=== PATIENT | female | born 1955 | race Caucasian/White ===

== ENCOUNTER → 2018-04-18 09:35 | Outpatient (CLI) | payer OTHER, SELFPAY ==
[2018-04-18 11:06] LABS: Absolute Lymphocyte Count 1.38 X10^3/ul (0.83-4.51); Absolute Neutrophil Count 2.1 X10^3/uL (2.0-7.7); Basophil# 0.02 X10^3/uL; Basophil% 0.5 % (0-1); Eosinophil# 0.07 X10^3/uL; Eosinophils% 1.8 % (0-5); Hematocrit 41.3 % (37-47); Hemoglobin 13.3 g/dl (12.0-15.0); Lymphocyte # 1.38 X10^3/ul (4.0); Lymphocyte % 35.1 % (19-41); Mean Corp Hgb Conc 32.2 g/gl (32-36); Mean Corpuscular Hgb 30.2 pg (27.0-32.0); Mean Corpuscular Volume 93.7 fL (81-99); Mean Platelet Vol. 11.8 fl (6.2-12.0); Monocyte# 0.35 X10^3/uL; Monocyte% 8.9 % (0-10); Neutrophil # 2.11 X10^3/uL (2.7-7.7); Neutrophil % 53.7 % (47-70); Platelet Count 211 K/mm3 (150-450); RBC Distribution Width CV 12.8 % (11.6-14.6); RBC Distribution Width SD 42.7 fl (35.1-43.9); Red Blood Count 4.41 M/mm3 (4.2-5.4); White Blood Count 3.9 K/mm3 (4.4-11.0)
[2018-04-18 11:10] LABS: POSITIVE COUNT NO; POSITIVE DIFFERENTIAL NO; POSITIVE MORPHOLOGY NO
[2018-04-18 11:33] LABS: Vitamin D,25 Hydroxy 28.9 ng/mL (29.95-100.01)
[2018-04-18 11:36] LABS: ALB/GLOB Ratio 0.9 RATIO (0.9-2.4); AST(SGOT) 17 U/L (15-37); Alanine Aminotransfer ALT/SGPT 21 U/L (13-56); Albumin, Serum 3.6 g/dL (3.2-5.0); Alkaline Phosphatase 87 U/L (45-117); Anion Gap 9 (5-15); BUN 22 mg/dL (7-18); Chloride 106 mmol/L (98-107); Cholesterol 245 mg/dL (200); Creatinine, Serum 0.84 mg/dL (0.55-1.02); EST Glomerular Filtration Rate 72 mL/min (>60); Est Glom Filt Rate - Afr Amer 88 mL/min (>60); Globulin 3.8 g/dL (2.2-4.2); Glucose 75 mg/dL (74-106); High Density Lipoprotein 68 mg/dL; Potassium 4.1 mmol/L (3.5-5.1); Protein, Total 7.4 g/dL (6.4-8.2); Sodium Level 138 mmol/L (136-145); Thyroid Stim Hormone (TSH) 3.33 uIU/mL (0.358-3.74); Triglycerides 72 mg/dL; Very Low Density Lipoprotein 14 mg/dL (5-40)
== END ==
DX: Z00.00 Encounter for general adult medical examination without abnormal findings (principal); E78.5 Hyperlipidemia, unspecified; E55.9 Vitamin D deficiency, unspecified; Z85.3 Personal history of malignant neoplasm of breast
CPT/HCPCS: 36415; 80053; 80061; 82306; 84443; 85025

== ENCOUNTER → 2019-04-21 | Outpatient (CLI) | payer OTHER, SELFPAY ==
[2019-04-21 09:51] LABS: Absolute Neutrophil Count 2.1 X10^3/uL (2.0-7.7); Basophil# 0.02 X10^3/uL; Basophil% 0.5 % (0-1); Eosinophil# 0.09 X10^3/uL; Eosinophils% 2.3 % (0-5); Hematocrit 43.4 % (37-47); Hemoglobin 13.6 g/dL (12.0-15.0); Lymphocyte % 35.3 % (19-41); Mean Corp Hgb Conc 31.3 g/dL (32-36); Mean Corpuscular Hgb 29.9 pg (27.0-32.0); Mean Corpuscular Volume 95.4 fL (81-99); Mean Platelet Vol. 11.3 fl (6.2-12.0); Monocyte# 0.33 X10^3/uL; Monocyte% 8.3 % (0-10); NRBC Flagged by Analyzer 0 % (0-5); Neutrophil # 2.12 X10^3/uL (2.7-7.7); Neutrophil % 53.3 % (47-70); Platelet Count 219 K/mm3 (150-450); RBC Distribution Width CV 12.4 % (11.6-14.6); RBC Distribution Width SD 43.7 fl (35.1-43.9); Red Blood Count 4.55 M/mm3 (4.2-5.4)
[2019-04-21 10:27] LABS: ALB/GLOB Ratio 0.9 RATIO (0.9-2.4); AST(SGOT) 17 U/L (15-37); Alanine Aminotransfer ALT/SGPT 21 U/L (13-56); Albumin, Serum 3.5 g/dL (3.2-5.0); Alkaline Phosphatase 86 U/L (45-117); Anion Gap 7 (5-15); BUN 11 mg/dL (7-18); BUN/Creat Ratio 15.3 RATIO (10-20); Chloride 108 mmol/L (98-107); Cholesterol 211 mg/dL (200); Creatinine, Serum 0.72 mg/dL (0.55-1.02); EST Glomerular Filtration Rate 87 mL/min (>60); Est Glom Filt Rate - Afr Amer 105 mL/min (>60); Globulin 3.7 g/dL (2.2-4.2); Glucose 88 mg/dL (74-106); High Density Lipoprotein 73 mg/dL; Potassium 4.5 mmol/L (3.5-5.1); Protein, Total 7.2 g/dL (6.4-8.2); Sodium Level 140 mmol/L (136-145); Thyroid Stim Hormone (TSH) 2.41 uIU/mL (0.358-3.74); Triglycerides 64 mg/dL; Very Low Density Lipoprotein 13 mg/dL (5-40)
== END | disposition home or self-care (01) ==
LOC: LAB 08:35
DX: E55.9 Vitamin D deficiency, unspecified (principal); E78.5 Hyperlipidemia, unspecified
CPT/HCPCS: 36415; 80053; 80061; 82306; 84443; 85025

== ENCOUNTER → 2020-12-17 06:39 | Outpatient (CLI) | payer MEDICARE, OTHER, SELFPAY ==
--- NOTE | 2020-12-17 06:41 | CT_ITS ---
STUDY: CT RIGHT LOWER EXTREMITY WITHOUT CONTRAST REASON FOR EXAM: Right hip osteoarthritis, surgical planning. TECHNIQUE: Transaxial CT imaging of the lower extremity was performed. Sagittal and coronal images were reconstructed. Individualized dose optimization techniques were used for this CT. COMPARISON: Radiographs 11/15/2020. FINDINGS: Hip: There are marginal osteophytes of the femoral head, subchondral cystic change of the femoral head and acetabulum, and severe joint space narrowing (coronal reconstructions 49-58). There is mild vascular calcification. Knee: The joint spaces of the medial and lateral femorotibial compartments and patellofemoral compartments are preserved. There is joint space narrowing and subchondral cystic change of the proximal tibiofibular articulation (sagittal reconstructions 21, 22). CT/Extremity Lower without Contra IMPRESSION: Right hip osteoarthritis. Electronically Signed: Justus Madden MD at 7:47 EDT Tel , Service support ,
[2020-12-17 08:00] LABS: Absolute Lymphocyte Count 1.51 X10^3/uL (0.83-4.51); Basophil# 0.03 X10^3/uL; Basophil% 0.8 % (0-1); Eosinophil# 0.06 X10^3/uL; Eosinophils% 1.5 % (0-5); Hematocrit 42.7 % (37-47); Hemoglobin 13.5 g/dL (12.0-15.0); Lymphocyte # 1.51 X10^3/ul (0.83-4.51); Lymphocyte % 38.3 % (19-41); Mean Corp Hgb Conc 31.6 g/dL (32-36); Mean Corpuscular Hgb 29.9 pg (27.0-32.0); Mean Corpuscular Volume 94.5 fL (81-99); Mean Platelet Vol. 11.4 fl (6.2-12.0); Monocyte# 0.35 X10^3/uL; Monocyte% 8.9 % (0-10); NRBC Flagged by Analyzer 0 % (0-5); Neutrophil # 1.98 X10^3/uL (2.7-7.7); Neutrophil % 50.2 % (47-70); Platelet Count 276 K/mm3 (150-450); RBC Distribution Width CV 13.1 % (11.6-14.6); Red Blood Count 4.52 M/mm3 (4.2-5.4); White Blood Count 3.9 K/mm3 (4.4-11.0)
[2020-12-17 09:01] LABS: ALB/GLOB Ratio 0.8 RATIO (0.9-2.4); AST(SGOT) 13 U/L (15-37); Alanine Aminotransfer ALT/SGPT 20 U/L (13-56); Albumin, Serum 3.4 g/dL (3.2-5.0); Alkaline Phosphatase 86 U/L (45-117); Anion Gap 4 (5-15); BUN 14 mg/dL (7-18); BUN/Creat Ratio 16.1 RATIO (10-20); Calcium,Total 9.1 mg/dL (8.5-10.1); Chloride 105 mmol/L (98-107); Cholesterol 270 mg/dL (200); Creatinine, Serum 0.87 mg/dL (0.55-1.02); EST Glomerular Filtration Rate 70 mL/min (>60); Est Glom Filt Rate - Afr Amer 84 mL/min (>60); Glucose 87 mg/dL (74-106); High Density Lipoprotein 80 mg/dL; Potassium 4.1 mmol/L (3.5-5.1); Protein, Total 7.4 g/dL (6.4-8.2); Sodium Level 138 mmol/L (136-145); Thyroid Stim Hormone (TSH) 3.61 uIU/mL (0.358-3.74); Triglycerides 65 mg/dL; Very Low Density Lipoprotein 13 mg/dL (5-40)
[2020-12-23 12:27] LABS: Vitamin D,25 Hydroxy 28.6 ng/mL
== END ==
PROVIDERS: Referring Provider Orthopaedic Surgery; Visit Provider Orthopaedic Surgery
DX: Z00.00 Encounter for general adult medical examination without abnormal findings (principal); M16.11 Unilateral primary osteoarthritis, right hip; R53.83 Other fatigue; E55.9 Vitamin D deficiency, unspecified; E78.5 Hyperlipidemia, unspecified
CPT/HCPCS: 36415; 73700; 80053; 80061; 82306; 84443; 85025

== ENCOUNTER 2020-12-30 15:00 | Outpatient (RCR) | payer MEDICARE, OTHER, SELFPAY ==
--- NOTE | 2020-11-22 13:24 | HP.PTEVAL_ITS ---
Patient's Visit Information SUDHEER ANTOINE is a 65 year old F referred to Physical Therapy by Dr. Sukumar Green DO with a diagnosis of R hip OA, R greater trochanteric bursistis, lumbago. Date of Evaluation: 11/18/20 Physical Therapist: Jeffrey Mckeon DPT - Visit Plan Frequency: 2x /Week Duration: 4 Weeks Plan: Start with ROM, BLE strengthening, HS stretching and IT band strethching in aquatic setting. Pt. is very painful with movements of R hip, progress ROM as tolerated. Add in core stability as well. - Subjective Pt. is here today for her initial evaluatuion with diagnosis of R hip OA, R greater trochanteric bursistis, lumbago. Pt. reports having pain for 2 years after falling on her side and hitting her lateral R hip. Pt. reports very limited ROM of her R hip and having difficulty doing her typical recreational activities which included walking, biking, and lifting. She has pain lying in any position as well. She did have an injection which did not change any of her symptoms. Pt. is hopeful to reduce her pain allowing her to get back to all of her previous activities without limitations. - Pain R posterior glute range Pain Intensity (Out of 10): 6 Pain Intensity Range: 3, 10 R greater trochanter Pain Intensity (Out of 10): 0 Pain Intensity Range: 0, 3 R groin Pain Intensity (Out of 10): 0 Pain Intensity Range: 0, 1 - Objective POSTURE: Pt. has slight flexed posture with increased lateral wt. shift to L side. Equal iliac crest heights. PALPATION: Pt. has very mild tenderness at R greater trochanter, increased pain at posterior hip. Pt. has mild pain at SI joint and increased pain near piriformis muscle belly. NEURO: normal sensation throughout BLEs. Normal DTR of achilles and patella. Pt. is able to rise on heels and toes without issues. ROM: R hip: flexion 110deg increase NW, IR 15deg increase NW, ER 30deg increase NW, ext 15deg increase NW. lumbar spine: flexion nil loss NE, exte min loss increase NW at anterior hip, SB min loss NE bilat, rotation nil loss NE. HS 65deg in 90/90, IT band tight with Obers, no increas in symptoms. Painful with any testing for piriformis due to lack of motion. MMT: LLE 5/5 throughout. RLE- ankle 5/5 throughout; knee 5/5 throughout; hip- flexion 4+/5, abd 4/5, ext 4/5.. Core strength- poor. GAIT: Pt. ambulates with dropping down on R side. Decreased L step lenght and decrased stance time on RLE. Pt. has marked increased hip lateral translation during R stance phase. STAIRS: Pt. completes with step to pattern. Pt. is very painful if attempting to laod RLE during stair negotiation - Special Tests R Hip Scour: Positive R Hip Andres - IT Band: Negative Comment: Obers negative for pain, but tight - Goals Goal 1:: LTG: Pt. to be I with HEP Goal Time Frame: 4-6 Weeks Goal 2:: STG: pt. to walk household distances with 0-2/10 pain in R posterior hip Goal Time Frame: 2 Weeks Goal 3:: LTG: Pt. to ambulate unlimited distance with 0-2/10 pain in R hip. Goal Time Frame: 4-6 Weeks Goal 4:: LTG: Pt. to have increased RLE strength by 1 grade throughotu effected musculature. Goal Time Frame: 4-6 Weeks Goal 5:: LTG: pt. to resume all recreational activities without increase in symptoms. Goal Time Frame: 4-6 Weeks Goal 6:: LTG: Pt. to have increased R hip ROM icnreased to full without increase in symptoms. Goal Time Frame: 4-6 Weeks - Rehabilitation Potential Physical Therapy Diagnosis: Pt. has signs and symptoms consistentw tih R hip OA, R greater trochanteric bursistis, lumbago. Pt. has marked loss of ROM of R hip and her symptoms are irritable. She was not overally painful at greater trochant er, but more along piriformis and posterior/lateral hip. She did have increased symptoms at posterior hip with hip ROM testing. I would like to work on her ROM and stability exercises allowing fro increased tolerance with walking and recreational activities. Rehabilitation Potential: Good - Anticipated Interventions Patient/Client Instruction: Educate patient on: Condition, Plan of Care, Risk Factors, Benefits of Fitness Program For the Purpose of:: To facilitate caregiver knowledge, To improve self manag ement, To prevent re-injury, To improve ability to perform tasks related to life management, To improve tolerance to ADL's Therapeutic Exercise to Include: Strength training, Power training, Body mechanics, Postural training, In an aquatic setting, via [employer] Balance Mas, Active ROM, Dynamic Lumbar Stabilization For the Purpose of:: To decrease pain, To decrease swelling/inflammation, To increase ROM, To improve nutrient delivery to tissue, To increase oxygenation perfusion, To improve muscle performance and motor function, To improve ability to perform ADL's, To improve health of tissue, To decrease soft tissue restriction, To increase flexibility/ROM Thank you for the opportunity to evaluate your patient. For Medicare and Medicare HMO plans, please review the plan of care and approve it. It will need to be FAXED BACK to us at [phone] for Medicare purposes. For Medicare only, by signing this I certify the plan of care. Please let me know if there are questions or concerns regarding this plan of care. Physician Signature: Date:
--- NOTE | 2020-12-31 10:00 | HP.PTDCSUM ---
It has been my pleasure to treat SUDHEER ANTOINE referred by Dr. Sukumar Green DO, with the diagnosis of R hip OA, R greater trochanteric bursistis, lumbago for a total of 10 visit(s). Discharge Date: 12/30/20 Please see the following information for a summary of their discharge status. Subjective: The pt. states that she did feel more sore after last PT session and felt it was from overdoing the Nustep and the exercises here. She states that she feels pretty good today and has little pain in the hip. R posterior glute range Pain Intensity (Out of 10): Unrated R greater trochanter Pain Intensity (Out of 10): Unrated R groin Pain Intensity (Out of 10): Unrated % Improvement: 10 Objective/Function: Pt. tolerated exercises today, but was in more pain than she previously was this week. She feels good while on the Nustep and this does exacerbate her pain. She is willing to perform all exercises here in PT and at home, but experiences lateral hip pain while doing them. Pt. will schedule PT for only once a week starting next week. Goal 1:: LTG: Pt. to be I with HEP Goal Progress: Not Progressing Goal 2:: STG: pt. to walk household distances with 0-2/10 pain in R posterior hip Goal Progress: Not Progressing Goal 3:: LTG: Pt. to ambulate unlimited distance with 0-2/10 pain in R hip. Goal Progress: Not Progressing Goal 4:: LTG: Pt. to have increased RLE strength by 1 grade throughotu effected musculature. Goal Progress: Not Progressing Goal 5:: LTG: pt. to resume all recreational activities without increase in symptoms. Goal Progress: Not Progressing Goal 6:: LTG: Pt. to have increased R hip ROM icnreased to full without increase in symptoms. Goal Progress: Not Progressing Plan: The pt. plans on being independent with her HEP until she gets her R hip replaced on January 18. The pt. feels that she can do all exercises at home without aggravating her hip and was educated on how to use a walker after her surgery and how to ascend/descend a flight of stairs with/without a walker. She has been having increased pain with exercises. At this point in time, I would suggest that she work on light exercises at home, including her elliptical which is not painful leading up her to surgery. She was educated in proper use of AD and stair negotiation for post surgical and educated on what to expect afterwards. Pt. will be DC from PT this date. Discharge Comments: At this point in time, I would suggest that she work on light exercises at home, including her elliptical which is not painful leading up her to surgery. She was educated in proper use of AD and stair negotiation for post surgical and educated on what to expect afterwards. Pt. will be DC from PT this date. If there are questions or concerns regarding this patient's physical therapy, please feel free to call me at [phone]. Thank you for the referral of this patient. Sincerely, Jeffrey Mckeon, INDERT
== END 2020-12-30 19:00 | disposition home or self-care (01) ==
LOC: PT 15:00
PROVIDERS: Referring Provider Orthopaedic Surgery; Visit Provider Orthopaedic Surgery
DX: M70.61 Trochanteric bursitis, right hip (principal); M16.11 Unilateral primary osteoarthritis, right hip; M54.5 Low back pain
CPT/HCPCS: 97110; 97113; 97161; 97530

== ENCOUNTER 2021-01-18 17:13 | Observation (INO) | payer MEDICARE, OTHER, SELFPAY ==
[2020-12-23 08:04] VITALS: BMI 29.5
--- NOTE | 2021-01-07 08:41 | EKG12_ITS ---
Test Reason : PREOP Blood Pressure : / mmHG Vent. Rate : 061 BPM Atrial Rate : 061 BPM P-R Int : 180 ms QRS Dur : 078 ms QT Int : 386 ms P-R-T Axes : 068 -06 038 degrees QTc Int : 388 ms Normal sinus rhythm Normal ECG Confirmed by FAB BALLESTEROS, FREDRICK ([id number]), website/blog editor REJI CHAVARRIA ([id number]) on 01/10/2021 1:45:11 PM Referred By: SUSY Confirmed By:FREDRICK SANON MD
[2021-01-07 09:49] LABS: International Normalized Ratio 0.9; Prothrombin Time (Protime)PT. 11.8 SECONDS (11.7-14.9)
[2021-01-07 09:50] LABS: Partial Thromboplast Time 25.8 Seconds (24.1-36.2)
[2021-01-08 10:05] LABS: Fructosamine 217 umol/L (0-285)
[2021-01-18] VITALS (20 sets, daily range): BP systolic 91–148; BP diastolic 43–82; PULSE 52–92; RESP 16–20; TEMP 35.7–37.3; O2SAT 93–100; BMI 30.2; BMI 30.1
--- NOTE | 2021-01-18 07:39 | HP.PCM_ITS ---
History and Physical Date of Admission: 01/18/21 Date of Service: 12/23/20 MR#:[id number]:[id number]: SUDHEER ANTOINE [facility] #:[id number]:[id number] Provider: LIT Santillan/Sex: 65/F Location:[facility]:Signed Intake Vital Signs 12/23/20 08:04 Height 5 ft 4.57 in Weight: 175 lb 2 oz BMI 29.5 Intake Visit Reasons: right hip Accompanied by: Self Allergies niacin Allergy (Verified 12/10/20 08:34) Hives prochlorperazine [From Compazine] Allergy (Verified 12/10/20 08:34) Unknown prochlorperazine edisylate [From Compazine] Allergy (Verified 12/10/20 08:34) Unknown prochlorperazine maleate [From Compazine] Allergy (Verified 12/10/20 08:34) Unknown promethazine HCl [From Phenergan] Allergy (Verified 12/10/20 08:34) Unknown trimethobenzamide HCl [From Tigan] Allergy (Verified 12/10/20 08:34) Unknown codeine Adverse Reaction (Verified 12/10/20 08:34) Other [facility] Social History (Updated 11/15/20 @ 12:[address] Sukumar Green DO) Smoking Status: Never smoker HPI right hip Details: Parts of this documentation were recorded by a scribe, this documentation accurately reflects the service provided and the decisions made by , LIT Polanco 12/23/20 0804. SUDHEER ANTOINE is a 65 year old F here today for her pre-op, right hip, needs to re- sign consent. Height and weight was updated today. Ortho Exam Right Hip Skin: No soft tissue swelling Special Tests: Yes pain with log roll, No TTP Greater Troch and Yes C sign Homans Sign: No HIP: Patient has decreased range of motion in both internal and external rotation. She does have pain/discomfort with this limited range of motion. Coding Level of Care Code Off vis,est,level 2 Diagnoses Osteoarthritis of right hip M16.11 Assessment and Plan Assessment and Plan (1) Osteoarthritis of right hip: Status: Acute Plan - LIT [place]addell: Patient presents the office today to be signed surgical consent for right hip total arthroplasty.. Patient has met with previously and has previously discussed the procedure in detail as well as risks, benefits, and possible complications. We did review these complication risks as well as possible benefits from this procedure. Patient had no further questions at this time. Surgical consent was signed in office today. We did briefly go over the procedure again today as well. Patient does have a history of some difficulties with nausea and vomiting postanesthesia. We discussed that this is definitely something that she wants to bring up with her anesthesiologist even at her presurgery registration/evaluation and then definitely the day of her surgery. Patient is staying overnight postoperatively due to her previous difficulties with anesthesia. Patient can notify our office in the meantime if she has any other questions or concerns and obviously if any change in her symptoms. This note was generated with [employer] dictation software. It may contain incorrect words, spelling, and punctuation that were not noted in checking the note before signing. 12/23/20 1144<Electronically signed by Addy MURRIETA>Date Addy MURRIETA Cosigner Signature:Date (if applicable) CC: ~I have re-examined the patient. There are no clinical changes since date of exam
[2021-01-18] MEDS: Acetaminophen 500 MG Tablet 1000 MG PO ×2 (07:56→17:15)
[2021-01-18] MEDS: Celecoxib 200 MG Capsule 400 MG PO (07:57)
[2021-01-18] MEDS: Gabapentin 600 MG Tablet PO (07:57)
[2021-01-18] MEDS: Scopolamine 1mg/72hr Patch 1 PATCH TD (07:58)
[2021-01-18] MEDS: Lactated Ringers 1,000 ML 999 ML IV (08:18)
[2021-01-18 08:39] LABS: Bedside Glucose 102 mg/dL (70-110)
--- NOTE | 2021-01-18 09:40 | PCM.OPRPT ---
Report of Operation Surgery/Procedure Performed:: Preoperative diagnosis: Right knee DJD Postoperative diagnosis: Same Procedure: Right total knee arthroplasty CT guided Robotic Assisted Implant: Kumar triathlon press fit femoral component size 3, press-fit tibial baseplate size 4, press fit asymmetric patella size 32, polyethylene X3 size 9 CS Anesthesia: Spinal with adductor canal block Tourniquet time: 35 minutes at 300 mmHg Customer Experience Strategist: Addy MURRIETA. Complications: None Condition: Stable to PACU Estimated blood loss: 150 cc Indication for procedure: This is a 65-year-old female with long standing degenerative joint disease of the knee who has failed conservative treatment and wished to proceed with elective total knee arthroplasty. Risk benefits and alternatives were reviewed including; risk of bleeding, infection, nerve artery and tissue damage, continued pain, postoperative stiffness, venous thromboembolism, need for postoperative rehabilitation, mechanical feel to the knee, and expected postoperative course. The operative CT and templating was performed with component sizing Procedure: The patient was met in the preoperative holding area. The operative extremity was identified by both patient and physician and was marked. Patient was met by anesthesia. An adductor canal block was placed by anesthesia postoperatively the patient was brought back to the operating room on a wheeled cart and transferred to the operating table in the supine position. Anesthesia was started. A well-padded tourniquet was placed on the operative extremity. The patient was prepped and draped in the usual sterile fashion. A timeout was called to ensure the proper patient procedure and extremity were being contemplated. An Esmarch was used to exsanguinate the extremity. The tourniquet was inflated. A 10 blade scalpel was used to make a midline incision down through the skin and subcutaneous tissue. Skin retractors placed. Bovie was used to perform meticulous hemostasis. full-thickness flaps were elevated medial and lateral along the joint capsule. A deep blade scalpel was used to perform a medial parapatellar arthrotomy. The knee was brought to full extension. A Bovie was used to release the soft tissues off the most proximal aspect of the medial tibial plateau, a three-quarter inch curved osteotome was also used for this process. The infrapatellar fat pad was excised. The superior fat pad was excised partially anteriorolateraly and portion the anterioromedial pad was elevated from the femur. At this point our intra-articular femoral array was placed of a 45 degree angle proximal and posterior to the medial epicondyle. Our tibial array was placed greater than 1 hands breath below the incision at a 20 degree angle stab incisions were used for this case were attached and checked with the robotic software. Tourniquet was let down. At this point registration lerner were taken throughout the knee as well as checkpoints placed in the femur and tibia once the knee was registered then tensioned the medial and lateral ligaments in extension and 90 degrees of flexion. We then used these numbers to adjust our components within parameters to balance the knee in both flexion and extension once this was done on our monitor we then proceeded with using the robotic arm to make our tibial plateau cut and anterior posterior and chamfer cuts and distal on the femur we then trialed and achieved the desired plan with a well-balanced knee. Lug holes were drilled in the femur the tibia preparation was completed with a fin punch and the patella was prepared by first using a caliper to ensure sufficient bone stock and a patellar reamer to remove the desired amount of bone locals were drilled for an asymmetric poly-. We then brought the knee through range of motion with excellent patellar tracking. We thoroughly irrigated the knee with a trial components were removed a posterior capsular injection with her standard cocktail was performed the aqua Mantis was also used to aid in hemostasis. Betadine rinse was allowed to sit and washed out components were press-fit into place. Aricept rinse was then used followed by several more rate liters of irrigation after it was allowed to sit. Joint capsule was closed with #1 Ethibond [id number] followed by Vicryl in the subcutaneous tissues staple in the skin arrays and checkpoints were removed prior to closure all counts were correct stab incisions were closed with a stable standard dressing in the form of Mepilex for the main incision Xeroform 4 x 4 and Tegaderm over pin site holes. Thigh-high MELODY hose applied over top of dressing. Patient tolerated the procedure well and was directed to PACU in stable condition no intraoperative complications
--- NOTE | 2021-01-18 10:00 | FEM_PTH ---
PATIENT: SUDHEER ANTOINE LOC: [facility] U#:[id number] AGE/SX: 65/F ROOM: [facility] [place] RE01/18/[address]: Dr. Sukumar Green DO : 1955 BED: 1 DIS: 01/19/2021 SPEC #: [id number] RECD: 01/18/21 14:37 STATUS: LIYA DOSHIAsif #: [id number] HENNA: 01/18/21 10:[address]: Sukumar Green DEPT: SURGICAL PATHOLOGY RECD BY: nYes Cardenas Tissues: Femoral region, NOS Procedures: Decalcification bone/plaque Surgery Specimen Level V HEADER OPERATION: ERAS, total hip replacement robotic arm assist PRE-OP DIAGNOSIS: Right hip DJD TISSUE SUBMITTED: Right hip bone MICROSCOPIC DIAGNOSIS Bone and tissue of right hip, total hip resection: Severe degenerative joint disease. AM:west 01/24/2021 MICROSCOPIC DESCRIPTION Slides are reviewed. GROSS DESCRIPTION Received is one container labeled with the patient's name and designated right hip bone. The specimen consists of a latham femoral head with portion of femoral neck. The femoral head measures 4 x 4.5 x 4 cm and the portion of femoral neck measures 1 cm in length. The articular surface displays prominent osteophyte formation, eburnation and bone erosion. Also present in the specimen container are multiple irregular fragments of bone reamings measuring in aggregate 7 x 7 x 1 cm. No soft tissue is identified. Ethanol Operator sections are submitted in two cassettes after decalcification as follows: 1 ? bone reaming, 2 ? femoral head. / SJ:west 01/19/21 TC:5 CPT: 55511, 68550
[2021-01-18] MEDS: Cefazolin 2 GM in 0.9% Normal Saline 100 ML IV (10:45)
[2021-01-18] MEDS: Lactated Ringers 1,000 ML 125 ML IV (12:01)
--- NOTE | 2021-01-18 12:47 | OP.PCM_ITS ---
Report of Operation Date of Procedure: 01/18/21 Description of Surgical Findings:: Preoperative diagnosis: Right hip DJD Postoperative diagnosis: Same Procedure: CT-guided Makoplasty assisted right total hip arthroplasty Implants: [place] Accolade II stem size 3, 127 degree neck angle -5 neck length 54 mm Trident II acetabular shell with 40 mm cancellous screw 36 mm ceramic head Anesthesia: Spinal EBL: 175 cc Complications: None Condition: Stable to PACU Indication for procedure: This is a 65-year-old female who has had long-standing arthrosis of the hip who has failed conservative treatment and wished to undergo total hip arthroplasty. We did discuss operative versus nonoperative intervention including risks of bleeding, infection , nerve artery tissue damage, need for further surgery, fracture, leg length discrepancy dislocation blood clot and need for postoperative physical therapy and postoperative expectations. An informed consent was signed. Procedure: Patient was met in the preoperative holding area once again the operative extremity was identified by both patient and physician and was marked. Patient was met by anesthesia . Anesthesia was started. patient was then positioned in the lateral decubitus position on a well-padded pegboard with an axillary roll. All bony prominences were checked and padded. The patient was prepped and draped in the usual sterile fashion. A timeout was called to ensure the proper patient procedure and extremity were being contemplated. Anatomic landmarks were palpated and marked for a standard posterior lateral approach. Prior to this the ASIS was palpated and 3 fingerbreadths proximal to this 3 pins were placed at a 45 degree angle into the iliac crest with good purchase, stab incisions were made with a 15 blade into the skin prior to placement. The Makoplasty array was then secured. A 10 blade scalpel was used to make a crab meat processor ior incision through the skin and subcutaneous tissue. retractors were used and electrocautery was used to maintain meticulous hemostasis and dissect full- thickness flaps until the gluteal fascia was reached. The gluteal fascia was incised in line with the gluteal fibers. The bursal tissue was then freed from the underside and a Charnley retractor was placed. The femoral trochanteric checkpoint was placed and leg length was assessed using the trochanteric checkpoint and an EKG lead that was placed on the knee prior to prepping the leg .the fat pad was then elevated off of the external rotators with electrocautery and the external rotators were dissected off of the greater trochanter including the piriformis and were tagged with #1 Ethibond for later repair. The joint capsule opened with posterior trapdoor technique. The hip was surgically dislocated. The measurement on the preoperative CT from the top of the lesser trochanter to the femoral neck cut was marked Hohmann was placed around the lesser trochanter. A neck cutting guide was used to edwin the neck with a Bovie and an oscillating saw was used complete the femoral neck cut. The femoral head was then removed and sized. We then turned our attention to the acetabulum. A Bovie was used to make a perforation in the anterior joint capsule and a Nix retractor was placed this was repeated in the 6 o'clock position and a wide gatito was placed there. With a long handled knife the labral and pulvinar tissue were removed. We then registered the acetabulum with the pointing array and confirmed our landmarks. Once the socket was thoroughly prepared and labral tissue and pulvinar was removed we single reamed with the robotic arm. We then used the robotic arm to position the acetabular implant and impacted it into place under robotic guidance. We then proceeded to place a posterior superior screw by drilling first measuring and inserting the screw. We then inserted a trial liner. And turned our attention back to the femur at this point a femoral elevator was used. As well as a pointed wide Hohmann around the lesser trochanter and a Hohmann to help retract the gluteus medius. A box chisel was used to remove excess lateral neck followed by a canal finder and a lateralizing reamer. This was followed by sequential broaches. Attention was made of the version within the canal based on preoperative templating. Once the final broach was seated we then trialed reduced the hip it was determined that a 127 degree neck angle with a -5 neck length was the appropriate size. We then checked stability with shuck testing as well as flexion and internal rotation. then proceeded with hip extension and checked leg lengths at the knees and heels as well as with the trochanteric checkpoint and knee EKG lead. At this point trials were removed. A liner was inserted to the cup. The femoral stem was inserted. We re-trialed and then proceeded to impact the femoral head onto the Roque taper. We then surgically reduce the hip check stability again and leg lengths and were satisfied. Betadine rinse was allowed to sit for 5 minutes while everyone changed their gloves. Thorough irrigation was performed. Followed by closure of the external rotators with #2 FiberWire followed by closure of gluteal fascia with #1 Ethibond. 0 Vicryl fat stitches and 2-0 Vicryl subcutaneous stitches and bernard in the skin. A pulls were placed in the pin sites over the iliac crest with Xeroform 4 x 4 and OpSite. dressing was applied to incisional area with Mepilex Ag and an abduction pillow was placed. Patient tolerated the procedure well there was no intraoperative complications all counts were correct and the patient was brought back to the PACU in stable condition Admit VTE Documentation VTE Mechan Device Prophylaxis: SCD's
--- NOTE | 2021-01-18 13:30 | RAD_ITS ---
HISTORY: Post Op -- AP both hips on single yancy/lateral of op hip PACU EXAMINATION/TECHNIQUE: XR Hip Unilateral with Pelvis when performed; 2-3 Views: AP view pelvis with lateral view right hip. COMPARISON: None FINDINGS: PELVIC BONES: No displaced fracture, destructive or sclerotic lesions. Note that overlapping bowel shadows may however obscure fine detail. Sacroiliac joints are unremarkable. No widening of the pubic symphisis. HIPS: Status post right hip total arthroplasty. Adequate alignment of hardware. Intact and adequately aligned left hip with preserved joint space. SOFT TISSUES: Postop right hip soft tissue swelling, gas and overlying skin bernard. Several calcified pelvic phleboliths noted. RAD/Hip Min 2 Views (Portable) IMPRESSION: Status post right hip arthroplasty. at 0012 Reported and signed by: Johnny Tierney MD Electronically Signed: Johnny Tierney MD at 0:11 EDT Tel , Service support ,
[2021-01-18] MEDS: Lactated Ringers 1,000 ML 100 ML IV (15:16)
--- NOTE | 2021-01-18 15:24 | SUR.PHASEI ---
AT 1345, PATIENT WAS TURNED SIDE TO SIDE TO PUT DEPENDS ON. BECAME VERY NAUSEATED AND VOMITED APPROXIMATELY 100 CC GREEN BILE LIQUID. ZOFRAN 4 MG IV GIVEN.
[2021-01-18] MEDS: Cefazolin 1 GM/50 ML BAG IV (17:15)
[2021-01-18] MEDS: Senna/Docusate Sodium 1 Tablet 2 TABLET PO (20:22)
[2021-01-19] MEDS: Cefazolin 1 GM/50 ML BAG IV ×2 (00:19→08:45)
[2021-01-19] MEDS: Acetaminophen 500 MG Tablet 1000 MG PO ×2 (00:19→08:46)
[2021-01-19] MEDS: Lactated Ringers 1,000 ML 125 ML IV (00:19)
[2021-01-19 03:00] VITALS: BP 109/46; PULSE 58; RESP 18; TEMP 36.6; O2SAT 95
[2021-01-19] MEDS: APIXABAN 2.5 MG TABLET PO (06:31)
[2021-01-19 06:55] LABS: Hemoglobin 11.2 g/dL (12.0-15.0); Mean Corpuscular Hgb 30.4 pg (27.0-32.0); Mean Corpuscular Volume 94.9 fL (81-99); Mean Platelet Vol. 11.5 fl (6.2-12.0); Platelet Count 235 K/mm3 (150-450); RBC Distribution Width CV 13.1 % (11.6-14.6); Red Blood Count 3.69 M/mm3 (4.2-5.4); White Blood Count 9.3 K/mm3 (4.4-11.0)
[2021-01-19 07:38] LABS: Anion Gap 6 (5-15); BUN 10 mg/dL (7-18); BUN/Creat Ratio 10.4 RATIO (10-20); Calcium,Total 8.4 mg/dL (8.5-10.1); Chloride 107 mmol/L (98-107); Creatinine, Serum 0.96 mg/dL (0.55-1.02); EST Glomerular Filtration Rate 62 mL/min (>60); Est Glom Filt Rate - Afr Amer 74 mL/min (>60); Estimated Creatinine Clearance 50.45 ml/min; Glucose 106 mg/dL (74-106); Potassium 4.4 mmol/L (3.5-5.1); Sodium Level 139 mmol/L (136-145)
--- NOTE | 2021-01-19 07:50 | PCM.PN.ORT ---
Subjective Subjective Seen and examined. Doing well. Episodes of lightheadedness and low blood pressure yesterday resolve after fluids. Pain controlled does not feel she needs much narcotic requesting a minimal prescription. No concerns denies fevers chills nausea vomiting shortness of breath Objective Data Objective Data Vital Signs: Vital Signs Temp Pulse Resp BP Pulse Ox 97.8 F 58 L 18 109/46 L 95 01/19/21 03:00 01/19/21 03:00 01/19/21 03:00 01/19/21 03:00 01/19/21 03:00 Oxygen Flow Rate (L/min) 6 Oxygen Delivery Method Room Air Weight: 176 lb 5.917 oz Body Mass Index (BMI) 30.1 Intake & Output: Intake and Output for Last 24 Hours 01/17/21 01/18/21 01/19/21 23:59 23:59 23:59 Intake Total 3186.67 / 3586.67 2204.58 / 2204.58 Balance 3186.67 / 3586.67 2204.58 / 2204.58 Lab / Micro Data Result Diagrams: 01/19/21 06:05 01/19/21 06:05 Labs: Laboratory Results - last 24 hr 01/18/21 01/19/21 01/19/21 07:33 06:05 06:05 WBC 9.3 RBC 3.69 L Hgb 11.2 L Hct 35.0 L MCV 94.9 MCH 30.4 MCHC 32.0 RDW Std Deviation 45.0 H RDW Coeff of Jatinder 13.1 Plt Count 235 MPV 11.5 Sodium 139 Potassium 4.4 Chloride 107 Carbon Dioxide 26.0 Anion Gap 6 BUN 10 Creatinine 0.96 Estim Creat Clear Calc 50.45 Est GFR (MDRD) Af Amer 74 Est GFR (MDRD) Non-Af 62 BUN/Creatinine Ratio 10.4 Glucose 106 Calcium 8.4 L POC Glucose 102 Micro: Microbiology 01/07/21 08:36 Swab (Method) Nasal Screen MRSA/MSSA - Final Radiography Diagnostic Testing: Radiology Impression Hip X-Ray 01/18/21 13:30 IMPRESSION: Status post right hip arthroplasty. at 0012 Reported and signed by: Johnny Tierney MD Electronically Signed: Johnny Tierney MD at 0:11 EDT Tel , Service support , Physical Exam Const alert and oriented x3 General Appearance: cooperative Extremity Extremity Narrative: Dressing clean dry and intact there is swelling about the right hip which is appropriate neurovascular intact no concern Assessment & Plan Assessment/Plan (1) Osteoarthritis of right hip: QUALIFIERS: Osteoarthritis type: primary Qualified Code(s): M16.11 - Unilateral primary osteoarthritis, right hip PLAN: Postop day #1 right total hip arthroplasty. DVT prophylaxis SCDs MELODY megan Eliquis 2.5 mg twice daily for 3 weeks PT OT weightbearing as tolerated DC home Begin outpatient physical therapy Instructions for wound care on discharge instructions Follow-up in office 2 weeks
--- NOTE | 2021-01-19 07:52 | PCM.DC ---
Discharge Instructions Diet Discharge Diet: No restrictions Activity Weight Bearing Status: Weight bearing as tolerated Dressing / Incision Call your doctor if you observe: Shortness of breath and Chest pain Additional Dressing/Incision Instructions:: Do not shower 72hrs. Begin daily showering warm water antibacterial soap postop day #3( 72hrs Post-operatively) and then daily. Leave the dressing on for 72 hours postoperatively then may remove prior to first shower and change dressing daily after this until no drainage for 2 consecutive days then may leave open to air. Follow hip precautions that were reviewed in hospital. Wear compression stockings, may remove at night. Start physical therapy as directed in hospital. Follow prescriptions instructions do not take any other pain medication or differ dosing without consulting your physician. Do not take oral NSAIDs until blood thinner has been completed , then may begin the day after completion if needed . Call Dr. Green's office with any concerns. Follow Up Care Please Follow Up With: Sukumar Green DO When: 2 weeks Test Results: Test results from this visit will be discussed in further detail at your follow-up appointment, if applicable. Discharge Plan Admission Admit Date/Time: 01/18/21 17:13 Primary Reason for Your Visit: Total hip arthroplasty right Attending Provider: Sukumar Green Discharge Orders/Prescriptions Prescriptions: New acetaminophen 500 mg Tablet 1,000 mg PO Q8H Qty: 100 RF: 0 Eliquis 2.5 mg Tablet 2.5 mg PO BID Qty: 42 RF: 0 oxycodone 5 mg Tablet 5 - 10 mg PO Q4H PRN PRN (Reason: Pain Score 4-10) 7 Days Qty: 10 RF: 0 Continued omega-3 fatty acids [Fish Oil Concentrate] 1,000 mg capsule 1,000 mg PO DAILY RF: 0 multivitamin Tablet 1 tab PO DAILY RF: 0 Probiotic 3 billion cell Capsule 3,000 mmu cells PO DAILY RF: 0 Referrals / Follow Up: BIPIN THOMPSON [Other]
[2021-01-19 08:30] VITALS: BP 97/64; PULSE 60; RESP 18; TEMP 36.8; O2SAT 100
[2021-01-19] MEDS: 0.9% NaCl Peripheral Flush Adult/Peds IV (08:45)
[2021-01-19] MEDS: Senna/Docusate Sodium 1 Tablet 2 TABLET PO (08:46)
[2021-01-19 09:45] VITALS: O2SAT 95
[2021-01-19 10:16] VITALS: O2SAT 95
--- NOTE | 2021-01-19 10:31 | CASEMGMT ---
RN CM ACREAGE REPORTER CM to room to meet with patient for initial transition planning/care coordination assessment. RN KODAK introduced self and role at [facility]. Pt voices understanding and consents to assessment at this time. Pt resting in bed in no distress at this time. @ bedside. Pt is A/O at this time and answers all questions appropriately. Care providers, pharmacy, and demographics verified/updated at this time. PCP: Dr Carrizales in [place]. Pt wishes to switch to Dr Bellamy, who states she will accept pt, but pt is not established w/ her yet. Specialists: Dr Green Preferred Pharmacy: [facility]. Eliquis, Oxycodone, and Tylenol have all been e-scribed to [facility] pharmacy. Per Ramakrishna @ [facility], they are not contracted w/pt's insurance. Eliquis savings card has been applied and will be free for pt. Oxycodone through [facility] pharm is $12.21 and Tylenol is $3.58. Pt/ made aware. They state they are okay to get Eliquis from [facility] pharmacy, but they wish for the Oxycodone and Tylenol to be transferred to [facility]. [facility] pharamacy to transfer Tylenol to [facility]. Oxycodone unable to be tx'd d/t being a controlled substance. Dr Green paged to notify him of need for Oxycodone to be e-scribed to [facility]. Awaiting call back. Insurance: [facility], AARP Prescription Benefit: Yes LNOK: , Gerardo Living Arrangements: Lives w/her , Gerardo, in [facility]. SU w/2 steps to enter. Pt was independent prior to surgery. able to assist as needed. Transportation: Pt and . DME: Was using a cane, on occasion, prior to surgery. Pt has a tub bench and walker. States no need for further DME at this time. HHC/SNF: No history of either and denies needs. Pt is set up for OP therapy @ [facility], with 1st appt being tomorrow 01/20. Pt/ wish for pt to return home and they hae no concerns with going home at time of discharge. CM to follow for any further discharge planning/needs. Pt/ voice no further concerns/needs at this time. Advised them to ask for CM if any further questions/concerns/needs arise. They voice understanding. PLAN: Home w/spousal support and OP therapy. Cr MUKHERJEEN RN CM
[2021-01-19 14:04] VITALS: BP 102/48; PULSE 64; RESP 18; TEMP 36.7; O2SAT 98
== END 2021-01-19 14:30 | disposition home or self-care (01) ==
LOC: SDC 17:27 → MS3 17:30
PROVIDERS: Anesthesiology; Admitting Provider Orthopaedic Surgery; Referring Provider Orthopaedic Surgery; Visit Provider Orthopaedic Surgery
PROC: 8E0Y0CZ Robotic Assisted Procedure of Lower Extremity, Open Approach (ICD-10-PCS; CPT 27130; principal; 2021-01-18 09:30)
DX: M16.11 Unilateral primary osteoarthritis, right hip (principal); I95.9 Hypotension, unspecified; K21.9 Gastro-esophageal reflux disease without esophagitis; Z85.3 Personal history of malignant neoplasm of breast; R42 Dizziness and giddiness; M79.89 Other specified soft tissue disorders
CPT/HCPCS: 01214; 27130; S2900; 36415; 73502; 80048; 82962; 82985; 83735; 85027; 85610; 85730; 86850; 86900; 86901; 87077; 87081; 88307; 88311; 93005; 94762; 96361; 96365; 96366; 97110; 97162; 97166; 97530; 97535; 99218; 99251; C1713; C1776; J7040; J7120; A4216; G0378; G0379; G0463; J2405

== ENCOUNTER 2021-02-18 10:30 | Outpatient (RCR) | payer MEDICARE, OTHER, SELFPAY ==
[2021-01-18 16:58] VITALS: BMI 30.1
--- NOTE | 2021-01-27 11:33 | HP.PTEVAL_ITS ---
Patient's Visit Information SUDHEER ANTOINE is a 65 year old F referred to Physical Therapy by Dr. Sukumar Green DO with a diagnosis of R HOLLY. Date of Evaluation: 01/20/21 Physical Therapist: Jeffrey Mckeon DPT - Visit Plan Frequency: 3x /Week Duration: 6 Weeks Plan: Start with active ROM of R hip musculature (light), progress walking tolerance. Light ROM as tolerated. Focus on functional mobility promoting gait as tolerated. Add nn Active ROM (she is limited with flexion/abd/ext). Progress strengthening once tolerating. Add in ice as needed. - Subjective Pt. is here today for her initial evaluation with diagnosis of R HOLLY. Pt. repor ts overall doing well. DOS: 01/18/21. Pt. arrives with standard walker without issues. Pt. denies N/T in either LE, no shortness of breath, no blurred vision, no chest pain. Pt. denies calf pain as well. She is wearing her her MELODY stockings as prescribed. She is taking Tylenol for pain control. Pt. has been trying her exercises from the hospital, but is having some difficulty with them. She is sleeping well without issues. Pt. is having trouble getting her leg in /out of bed. Pt. has not taken her bandage off yet. Pt. is hopeful to get back to all recreational walking, and hobbies without issues. - Pain R hip Pain Intensity (Out of 10): 6 Pain Intensity Range: 4, 9 - Objective POSTURE: Pt. slight flexed posture of B hips, slight wt. shift to L side. normal TRACEY in stance with use of AD to stabilize. PALPATION: Pt. has normal healing incision, slight redness, but no signs of infection. Negative homans sign. NEURO: Pt. has normal sensation in BLEs. Pt. has 2+ patellar and Achilles DTR . ROM: R hip: flexion 70deg, abd 20deg, ext 10deg. Tightness in B HS. MMT: RLE: ankle 5/5 throughout; knee ext 4/5, flexion 4/5; hip- flexion 2/5, abd 2/5, ext 3/5. GAIT: Pt. can ambulate with standard walker with decreased B step length. Pt. has flexed posture in stance and very decreased tempo noted. 78/96 WOMAC. TUsec with standard walker - Goals Goal 1:: LTG: Pt. to be I with HEP. Goal Time Frame: 4-6 Weeks Goal 2:: STG: pt. to be able to walk with normal gait pattern with FWW without increase in symptoms. Goal Time Frame: 2 Weeks Goal 3:: LTG: Pt. to ambulate without AD with normal gait pattern for at least 750ft. without increase in symptoms. Goal Time Frame: 4-6 Weeks Goal 4:: LTG: pt. to negotiate steps with 1 HR with reciprocal pattern without increase in symptoms. Goal Time Frame: 4-6 Weeks Goal 5:: STG: pt. to sleep throughout increase in symptoms. Goal Time Frame: 2-4 Weeks Goal 6:: LTG: pt. to have increased RLE strength to at least 4+/5 throughout. Goal Time Frame: 4-6 Weeks - Rehabilitation Potential Physical Therapy Diagnosis: Pt. has signs and symptoms consistent with RTHA. PT. has subsequent hypomobility, weakness and difficulty with gait. She would benefit from PT to address the above limitations progressing back to all recreational activities as tolerated. Rehabilitation Potential: Excellent - Anticipated Interventions Patient/Client Instruction: Educate patient on: Condition, Plan of Care, Risk Factors, Benefits of Fitness Program For the Purpose of:: To foster healthy habits, To improve decision making, To facilitate caregiver knowledge, To improve self management, To prevent re- injury, To improve ability to perform tasks related to life management Therapeutic Exercise to Include: Strength training, Power training, Balance training, Coordination, Postural training, Flexibilty training, Gait and locomotor training, Active ROM, Dynamic Lumbar Stabilization For the Purpose of:: To decrease pain, To decrease swelling/inflammation, To inc rease ROM, To improve nutrient delivery to tissue, To increase oxygenation perfusion, To improve muscle performance and motor function, To improve ability to perform ADL's, To improve gait and locomotor functions, To improve health of tissue, To decrease soft tissue restriction, To increase flexibility/ROM, To improve balance, To improve safety Cryotherapy (ice pack, ice massage): Yes For the Purpose of:: To decrease pain, To decrease swelling/inflammation, To increase ROM Thank you for the opportunity to evaluate your patient. For Medicare and Medicare HMO plans, please review the plan of care and approve it. It will need to be FAXED BACK to us at [phone] for Medicare purposes. For Medicare only, by signing this I certify the plan of care. Please let me know if there are questions or concerns regarding this plan of care. Physician Signature: Date:____
--- NOTE | 2021-07-05 11:20 | HP.PTDCNRP_ITS ---
SUDHEER ANTOINE was seen in my office for initial evaluation on 01/20/21. The following Plan of Care was established for this patient: Initial Frequency: 3x /Week Initial Duration: 6 Weeks Patient/Client Instruction: Educate patient on: Condition, Plan of Care, Risk Factors, Benefits of Fitness Program For the Purpose of:: To foster healthy habits, To improve decision making, To facilitate caregiver knowledge, To improve self management, To prevent re- injury, To improve ability to perform tasks related to life management Therapeutic Exercise to Include: Strength training, Power training, Balance training, Coordination, Postural training, Flexibilty training, Gait and locomotor training, Active ROM, Dynamic Lumbar Stabilization For the Purpose of:: To decrease pain, To decrease swelling/inflammation, To increase ROM, To improve nutrient delivery to tissue, To increase oxygenation perfusion, To improve muscle performance and motor function, To improve ability to perform ADL's, To improve gait and locomotor functions, To improve health of tissue, To decrease soft tissue restriction, To increase flexibility/ROM, To improve balance, To improve safety Cryotherapy (ice pack, ice massage): Yes For the Purpose of:: To decrease pain, To decrease swelling/inflammation, To increase ROM This patient was last seen in our office 02/18/21. Pertinent comments regarding their Physical therapy will appear below: Pt. was seen in PT for her HOLLY. PT. was doing well at her last visit. She was to trial exercises on her own and follow up with PT if needed. She has not been seen in PT for several months and will be DC from PT at this point in time. At this point I will be discontinuing this patient from physical therapy. I would be happy to see this patient again in the future if found appropriate by the physician. Thank you! Jeffrey Mckeon, DPT Balance/Gait/Functional tests - Balance/Special Test Scores Lower Extremity Functional Score: 2
== END 2021-02-18 19:00 | disposition home or self-care (01) ==
LOC: PT 10:30
PROVIDERS: Referring Provider Orthopaedic Surgery; Visit Provider Orthopaedic Surgery
DX: Z47.1 Aftercare following joint replacement surgery (principal); Z96.641 Presence of right artificial hip joint
CPT/HCPCS: 97110; 97161; 97164

== ENCOUNTER → 2021-12-28 | Outpatient (CLI) | payer MEDICARE, OTHER, SELFPAY | END | disposition home or self-care (01) | LOC: LAB.FUTURE 11:25 | PROVIDERS: Visit Provider Family Medicine | DX: Z00.00 Encounter for general adult medical examination without abnormal findings (principal); E78.5 Hyperlipidemia, unspecified; Z83.438 Family history of other disorder of lipoprotein metabolism and other lipidemia ==

== ENCOUNTER → 2021-12-30 | Outpatient (CLI) | payer MEDICARE, OTHER, SELFPAY ==
--- NOTE | 2021-12-30 13:24 | BI_ITS ---
MAMMOGRAPHY - BILATERAL SCREENING REASON FOR EXAM: Female, 66 years old. Routine annual screening examination. PERTINENT HISTORY: Personal history of breast cancer. Prior right lumpectomy and lymph node dissection with chemotherapy. Mother with breast cancer. Grandmother with breast cancer. TECHNIQUE: Digital bilateral breast romulo (3D mammographic acquisition) in the CC and MLO projections. 2-D mediolateral oblique (MLO) and craniocaudad (CC) views of both breasts were obtained. CAD: Full Field Digital Mammography with Computer Added Detection was performed. COMPARISON: Comparison is made with prior outside examination of 12/09/2020. FINDINGS: Breast Composition: The breasts are heterogeneously dense, which may obscure small masses. There are no dominant masses or suspicious calcifications. The patient is status post lumpectomy in the deep central medial aspect of the right breast with resultant postoperative or calcification and architectural distortion. Stable skin thickening and retraction along the medial aspect of the right breast. A surgical clip is seen in the right axillary region. No other significant abnormalities are identified. There has been no significant change since the prior study. BI/SCRN MAMM (CAD)W/ROMULO BILAT IMPRESSION: Stable bilateral screening mammogram. Yearly follow-up mammogram recommended. (A) ASSESSMENT CATEGORY: BIRADS Category 2: Benign. A letter regarding these results will be sent to the patient by the facility within 30 days. Approximately 10% of breast cancers are not detected by mammography. A normal mammogram should not delay biopsy of a clinically suspicious abnormality. [id number] Electronically Signed: Sampson Perez MD at 11:11 EDT ,
== END | disposition home or self-care (01) ==
LOC: OPBI 13:22
PROVIDERS: PCP Family Medicine; Referring Provider Family Medicine; Visit Provider Family Medicine
DX: Z12.31 Encounter for screening mammogram for malignant neoplasm of breast (principal)
CPT/HCPCS: 77063; 77067

== ENCOUNTER → 2022-01-21 | Outpatient (CLI) | payer MEDICARE, OTHER, SELFPAY ==
[2022-01-21 08:15] LABS: Absolute Lymphocyte Count 1.45 X10^3/uL (0.83-4.51); Absolute Neutrophil Count 2.2 X10^3/uL (2.0-7.7); Basophil# 0.02 X10^3/uL; Basophil% 0.5 % (0-1); Eosinophil# 0.12 X10^3/uL; Eosinophils% 2.9 % (0-5); Hematocrit 42.8 % (37-47); Hemoglobin 13.7 g/dL (12.0-15.0); Lymphocyte # 1.45 X10^3/ul (0.83-4.51); Lymphocyte % 34.5 % (19-41); Mean Corpuscular Hgb 30.6 pg (27.0-32.0); Mean Corpuscular Volume 95.7 fL (81-99); Mean Platelet Vol. 11.1 fl (6.2-12.0); Monocyte# 0.37 X10^3/uL; Monocyte% 8.8 % (0-10); NRBC Flagged by Analyzer 0 % (0-5); Neutrophil # 2.23 X10^3/uL (2.7-7.7); Neutrophil % 53.1 % (47-70); Platelet Count 248 K/mm3 (150-450); RBC Distribution Width CV 12.8 % (11.6-14.6); RBC Distribution Width SD 45.1 fl (35.1-43.9); Red Blood Count 4.47 M/mm3 (4.2-5.4); White Blood Count 4.2 K/mm3 (4.4-11.0)
[2022-01-21 08:39] LABS: ALB/GLOB Ratio 0.9 RATIO (0.9-2.4); AST(SGOT) 22 U/L (15-37); Alanine Aminotransfer ALT/SGPT 29 U/L (13-56); Albumin, Serum 3.4 g/dL (3.2-5.0); Alkaline Phosphatase 91 U/L (45-117); Anion Gap 4 (5-15); BUN 15 mg/dL (7-18); BUN/Creat Ratio 17.9 RATIO (10-20); Chloride 108 mmol/L (98-107); Cholesterol 285 mg/dL (200); Creatinine, Serum 0.84 mg/dL (0.55-1.02); EST Glomerular Filtration Rate 72 mL/min (>60); Est Glom Filt Rate - Afr Amer 87 mL/min (>60); Globulin 3.8 g/dL (2.2-4.2); Glucose 99 mg/dL (74-106); High Density Lipoprotein 72 mg/dL; Potassium 4.8 mmol/L (3.5-5.1); Protein, Total 7.2 g/dL (6.4-8.2); Sodium Level 139 mmol/L (136-145); Triglycerides 127 mg/dL; Very Low Density Lipoprotein 25 mg/dL (5-40)
== END | disposition home or self-care (01) ==
LOC: LAB 07:33
PROVIDERS: PCP Family Medicine; Referring Provider Family Medicine; Visit Provider Family Medicine
DX: Z00.00 Encounter for general adult medical examination without abnormal findings (principal); E78.5 Hyperlipidemia, unspecified; Z83.438 Family history of other disorder of lipoprotein metabolism and other lipidemia
CPT/HCPCS: 36415; 80053; 80061; 85025

== ENCOUNTER → 2023-01-27 | Outpatient (CLI) | payer MEDICARE, OTHER, SELFPAY ==
[2023-01-27 09:13] LABS: Absolute Lymphocyte Count 1.56 X10^3/uL (0.83-4.51); Absolute Neutrophil Count 2.7 X10^3/uL (2.0-7.7); Basophil# 0.02 X10^3/uL; Basophil% 0.4 % (0-1); Eosinophil# 0.12 X10^3/uL; Eosinophils% 2.5 % (0-5); Hematocrit 41.1 % (37-47); Hemoglobin 13.2 g/dL (12.0-15.0); Lymphocyte # 1.56 X10^3/ul (0.83-4.51); Lymphocyte % 32.9 % (19-41); Mean Corp Hgb Conc 32.1 g/dL (32-36); Mean Corpuscular Hgb 30.6 pg (27.0-32.0); Mean Corpuscular Volume 95.1 fL (81-99); Mean Platelet Vol. 11.1 fl (6.2-12.0); Monocyte# 0.35 X10^3/uL; Monocyte% 7.4 % (0-10); NRBC Flagged by Analyzer 0 % (0-5); Neutrophil # 2.67 X10^3/uL (2.7-7.7); Neutrophil % 56.4 % (47-70); Platelet Count 248 K/mm3 (150-450); RBC Distribution Width CV 12.8 % (11.6-14.6); RBC Distribution Width SD 44.7 fl (35.1-43.9); Red Blood Count 4.32 M/mm3 (4.2-5.4); White Blood Count 4.7 K/mm3 (4.4-11.0)
== END | disposition home or self-care (01) ==
LOC: LAB.FUTURE 08:36 → LAB 12:37
PROVIDERS: PCP Family Medicine; Referring Provider Family Medicine; Visit Provider Family Medicine
DX: E78.5 Hyperlipidemia, unspecified (principal); Z51.81 Encounter for therapeutic drug level monitoring
CPT/HCPCS: 36415; 80053; 80061; 85025

== ENCOUNTER → 2023-01-28 | Outpatient (CLI) | payer MEDICARE, OTHER, SELFPAY ==
[2023-01-28 09:35] LABS: ALB/GLOB Ratio 0.9 RATIO (0.9-2.4); AST(SGOT) 17 U/L (15-37); Alanine Aminotransfer ALT/SGPT 23 U/L (13-56); Albumin, Serum 3.4 g/dL (3.2-5.0); Alkaline Phosphatase 93 U/L (45-117); Anion Gap 4 (5-15); BUN 14 mg/dL (7-18); BUN/Creat Ratio 17.8 RATIO (10-20); Calcium,Total 9.1 mg/dL (8.5-10.1); Chloride 108 mmol/L (98-107); Cholesterol 304 mg/dL (200); Creatinine, Serum 0.79 mg/dL (0.55-1.02); EST Glomerular Filtration Rate 77 mL/min (>60); Est Glom Filt Rate - Afr Amer 94 mL/min (>60); Globulin 3.7 g/dL (2.2-4.2); Glucose 101 mg/dL (74-106); High Density Lipoprotein 66 mg/dL; Potassium 4.4 mmol/L (3.5-5.1); Protein, Total 7.1 g/dL (6.4-8.2); Sodium Level 138 mmol/L (136-145); Triglycerides 135 mg/dL; Very Low Density Lipoprotein 27 mg/dL (5-40)
== END | disposition home or self-care (01) ==
LOC: LAB.FUTURE 09:06 → LAB 09:08
PROVIDERS: PCP Family Medicine; Referring Provider Family Medicine; Visit Provider Family Medicine
DX: E78.5 Hyperlipidemia, unspecified (principal); Z51.81 Encounter for therapeutic drug level monitoring
CPT/HCPCS: 80053; 80061

== ENCOUNTER → 2023-01-31 | Outpatient (CLI) | payer MEDICARE, OTHER, SELFPAY ==
--- NOTE | 2023-01-31 07:58 | BI_ITS ---
MAMMOGRAPHY - BILATERAL SCREENING REASON FOR EXAM: Female, 67 years old. Routine annual screening examination. PERTINENT HISTORY: Personal history of breast cancer. Prior right lumpectomy with radiation and chemotherapy. Sister with breast cancer. Mother with breast cancer. Grandmother with breast cancer. TECHNIQUE: Digital bilateral breast romulo (3D mammographic acquisition) in the CC and MLO projections. 2-D mediolateral oblique (MLO) and craniocaudad (CC) views of both breasts were obtained. CAD: Full Field Digital Mammography with Computer Added Detection was performed. COMPARISON: Comparison is made with prior study dated December 30, 2021. FINDINGS: Breast Composition: The breasts are heterogeneously dense, which may obscure small masses. There are no dominant masses or suspicious calcifications. Once again, the patient is status post lumpectomy in the deep central medial aspect of the right breast with resultant postoperative scarring and dystrophic calcification at the operative site with architectural distortion. Stable skin thickening and retraction along the medial aspect of the right breast. Surgical clips are also seen in the right axillary region. No other significant abnormalities are identified. There has been no significant change since the prior study. BI/SCRN MAMM (CAD)W/ROMULO BILAT IMPRESSION: Stable bilateral screening mammogram. Yearly follow-up mammogram recommended. (A) ASSESSMENT CATEGORY: BIRADS Category 2: Benign. A letter regarding these results will be sent to the patient by the facility within 30 days. Approximately 10% of breast cancers are not detected by mammography. A normal mammogram should not delay biopsy of a clinically suspicious abnormality. [id number] Electronically Signed: Sampson Perez MD at 8:52 EDT ,
== END | disposition home or self-care (01) ==
LOC: OPBI 07:55
PROVIDERS: PCP Family Medicine; Referring Provider Family Medicine; Visit Provider Family Medicine
DX: Z12.31 Encounter for screening mammogram for malignant neoplasm of breast (principal); Z85.3 Personal history of malignant neoplasm of breast; Z80.3 Family history of malignant neoplasm of breast; Z92.21 Personal history of antineoplastic chemotherapy; Z92.3 Personal history of irradiation
CPT/HCPCS: 77063; 77067

== ENCOUNTER → 2023-05-21 | Outpatient (CLI) | payer MEDICARE, OTHER, SELFPAY ==
--- NOTE | 2023-05-21 08:40 | RAD_ITS ---
STUDY: X-RAY - RIGHT WRIST REASON FOR EXAM: Female, 68 years old. Right thumb pain. TECHNIQUE: 3 views of the right wrist were obtained. COMPARISON: Right wrist radiographs dated 12/25/2015. FINDINGS: Normal visualized distal radius and ulna. Normal radiocarpal articulation. Normal distal radioulnar articulation. Intact carpal bones. There is minimal arthrosis at the scaphoid-trapezium joint. There is minimal degenerative arthrosis of the carpometacarpal articulation of the thumb. Normal second through fifth carpometacarpal articulations. Normal visualized metacarpal bones. The soft tissue structures are unremarkable. There is no demonstrated acute fracture. 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 Electronically Signed: Siddhartha Tan MD at 9:25 EDT ,
--- NOTE | 2023-05-21 08:40 | RAD_ITS ---
STUDY: X-RAY - RIGHT HAND, ATTENTION THUMB FINGER REASON FOR EXAM: Female, 68 years old. Right thumb pain. TECHNIQUE: 3 views of the right thumb were obtained. COMPARISON: None. FINDINGS: There is minimal degenerative arthrosis at the scaphoid-trapezium joint, first CMC joint, first MCP joint, and interphalangeal joint of the thumb. Intact first metacarpal. Normal proximal and distal phalanges of the thumb. There is no demonstrated fracture. 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 Electronically Signed: Siddhartha Tan MD at 9:28 EDT ,
== END | disposition home or self-care (01) ==
LOC: RAD 08:16
PROVIDERS: PCP Family Medicine; Referring Provider Family Medicine; Visit Provider Family Medicine
DX: M79.644 Pain in right finger(s) (principal)
CPT/HCPCS: 73110; 73140

== ENCOUNTER → 2024-02-04 | Outpatient (CLI) | payer MEDICARE, OTHER, SELFPAY ==
--- NOTE | 2024-02-04 07:06 | BI_ITS ---
MAMMOGRAPHY - BILATERAL SCREENING 3-D TOMOSYNTHESIS REASON FOR EXAM: Female, 68 years old. SCREENING PERTINENT HISTORY: No significant family history. TECHNIQUE: 2-D mammograms and 3-D Tomosynthesis of the breast (s) were performed. CAD was performed. COMPARISON: 01/31/2023 FINDINGS: The breast composition is composed of scattered fibroglandular density. Scattered benign calcifications are seen. No dense spiculated masses or suspicious microcalcifications are identified. No architectural distortion is identified. There is no skin thickening or retraction. There has been no significant change since the prior study. No change in lumpectomy changes and calcified scarring in the lower inner quadrant of the right breast. BI/SCRN MAMM (CAD)W/ROMULO BILAT IMPRESSION: No mammographic signs of malignancy. Routine yearly mammograms recommended. ASSESSMENT CATEGORY: BIRADS Category 2: Benign. A letter regarding these results will be sent to the patient by the facility within 30 days. FOLLOW UP RECOMMENDATION: Yearly follow up mammogram recommended. (A) Approximately 10% of breast cancers are not detected by mammography. A normal mammogram should not delay biopsy of a clinically suspicious abnormality. Electronically Signed: Jordi Pyle MD at 8:35 EDT ,
== END | disposition home or self-care (01) ==
LOC: OPBI 07:01
PROVIDERS: PCP Family Medicine; Referring Provider Family Medicine; Visit Provider Family Medicine
DX: Z12.31 Encounter for screening mammogram for malignant neoplasm of breast (principal)
CPT/HCPCS: 77063; 77067

== ENCOUNTER → 2024-02-08 | Outpatient (CLI) | payer MEDICARE, OTHER, SELFPAY ==
[2024-02-08 09:19] LABS: Absolute Lymphocyte Count 1.64 X10^3/uL (0.83-4.51); Absolute Neutrophil Count 2.5 X10^3/uL (2.0-7.7); Basophil# 0.04 X10^3/uL; Basophil% 0.8 % (0-1); Eosinophil# 0.12 X10^3/uL; Eosinophils% 2.5 % (0-5); Hemoglobin 13.1 g/dL (12.0-15.0); Lymphocyte # 1.64 X10^3/ul (0.83-4.51); Lymphocyte % 34.6 % (19-41); Mean Corpuscular Hgb 30.1 pg (27.0-32.0); Mean Corpuscular Volume 94.3 fL (81-99); Mean Platelet Vol. 11.1 fl (6.2-12.0); Monocyte# 0.41 X10^3/uL; Monocyte% 8.6 % (0-10); NRBC Flagged by Analyzer 0 % (0-5); Neutrophil # 2.51 X10^3/uL (2.7-7.7); Neutrophil % 53.1 % (47-70); Platelet Count 244 K/mm3 (150-450); RBC Distribution Width CV 13.2 % (11.6-14.6); RBC Distribution Width SD 45.2 fl (35.1-43.9); Red Blood Count 4.35 M/mm3 (4.2-5.4); White Blood Count 4.7 K/mm3 (4.4-11.0)
[2024-02-08 09:48] LABS: ALB/GLOB Ratio 0.9 RATIO (0.9-2.4); AST(SGOT) 18 U/L (15-37); Alanine Aminotransfer ALT/SGPT 24 U/L (13-56); Albumin, Serum 3.5 g/dL (3.2-5.0); Alkaline Phosphatase 97 U/L (45-117); Anion Gap 5 (5-15); BUN 17 mg/dL (7-18); BUN/Creat Ratio 19.9 RATIO (10-20); Calcium,Total 9.1 mg/dL (8.5-10.1); Chloride 106 mmol/L (98-107); Cholesterol 320 mg/dL (200); Creatinine, Serum 0.85 mg/dL (0.55-1.02); EST Glomerular Filtration Rate 70 mL/min (>60); Est Glom Filt Rate - Afr Amer 85 mL/min (>60); Globulin 3.7 g/dL (2.2-4.2); Glucose 93 mg/dL (74-106); High Density Lipoprotein 67 mg/dL; Potassium 4.7 mmol/L (3.5-5.1); Protein, Total 7.2 g/dL (6.4-8.2); Sodium Level 138 mmol/L (136-145); Triglycerides 123 mg/dL; Very Low Density Lipoprotein 25 mg/dL (5-40)
== END | disposition home or self-care (01) ==
LOC: LAB 07:53
PROVIDERS: PCP Family Medicine; Referring Provider Family Medicine; Visit Provider Family Medicine
DX: E78.5 Hyperlipidemia, unspecified (principal); Z51.81 Encounter for therapeutic drug level monitoring
CPT/HCPCS: 36415; 80053; 80061; 85025

== ENCOUNTER 2024-03-04 00:11 | Emergency (ER) | payer MEDICARE, OTHER, SELFPAY ==
[2024-03-04 00:11] VITALS: BP 106/95; PULSE 72; RESP 16; TEMP 36.7; O2SAT 98; BMI 30.9
--- NOTE | 2024-03-04 00:25 | CT_ITS ---
EXAM: CT ABDOMEN AND PELVIS WITHOUT INTRAVENOUS CONTRAST CLINICAL INDICATION: LEFT SIDED PAIN TECHNIQUE: Helically acquired images were obtained of the abdomen and pelvis without intravenous contrast. This CT exam was performed using one or more of the following dose reduction techniques: automated exposure control, adjustment of the mA and/or kV according to patient size, and/or use of iterative reconstruction technique. RADIATION DOSE: CTDIvol = 14.08 mGy, DLP = 684.34 mGy-cm COMPARISON: No relevant prior studies available. FINDINGS: LOWER THORAX: Bibasilar dependent atelectasis. No cardiomegaly. No significant pericardial effusion. ABDOMEN: LIVER: Unremarkable. Homogeneous. GALLBLADDER AND BILE DUCTS: Unremarkable. No calcified gallstones. No gallbladder distention or wall edema. No intra- or extrahepatic biliary ductal dilation. PANCREAS: Unremarkable. No focal cystic mass. SPLEEN: Unremarkable. Normal size without focal cystic or solid mass. ADRENALS: Unremarkable. No nodules. KIDNEYS AND URETERS: There is a 1 cm stone in the left intrarenal collecting system obstructing the upper pole calyces. There are other tiny stone fragments in the kidneys bilaterally which are nonobstructing. Normal renal size and position. STOMACH AND BOWEL: Unremarkable. No stomach or bowel distention. No focal inflammatory change. PELVIS: APPENDIX: No evidence of acute appendicitis. BLADDER: Unremarkable. REPRODUCTIVE: Unremarkable as visualized. No mass. ABDOMEN and PELVIS: INTRAPERITONEAL SPACE: Unremarkable. No ascites or other fluid collection. No free air. BONES/JOINTS: Right hip arthroplasty. Degenerative changes of the spine. No suspicious lytic or blastic abnormality. SOFT TISSUES: Unremarkable. No discrete abdominal or pelvic wall hernia. VASCULATURE: Unremarkable. Abdominal aorta is non-dilated. LYMPH NODES: Unremarkable. No enlarged lymph nodes. CT/Abdomen/Pelvis without Cont IMPRESSION: There is a 1 cm stone in the intrarenal collecting system of the left kidney, obstructing the upper pole calyces. Electronically Signed: Jose Luis Manuel MD at 1:33 EDT ,
--- NOTE | 2024-03-04 00:25 | ED.VIS.GI ---
HPI HPI - GI History of Present Illness Chief Complaint: Flank Pain Informant: patient and spouse/S.O. Abdominal Pain/Flank Pain Onset: Hours (3-4) Context: Sudden Onset Timing: Continuous and Waxes and wanes Quality: Burning Location: Left Flank Current Severity: Severe Maximum Severity: Severe Worsened by: Nothing Relieved by: Nothing Nausea/Vomiting/Emesis GI Symptom: Positive for Nausea and Vomiting Diarrhea/Melena/Hematochezia GI Symptom: Negative for Diarrhea, Melena or Hematochezia Associated Symptoms Associated Symptoms: Negative for Dysuria, Frequency, Hematuria or Urgency Narrative Narrative: Never had this pain before. Started suddenly and severe and has been colicky. Took Tylenol and 2 baby aspirin, which did not seem to help. No syncope. No numbness or tingling down her legs. Pain is high left flank radiates a little bit into her back, no anterior abdominal pain. No groin pain. Other than a remote laparoscopy no other abdominal surgeries. [facility] Medical History Wears glasses Cancer Arthritis Back pain Injury of head and neck Gastric reflux Non-smoker History of pain when walking Home Medications ?Medication ?Instructions ?Recorded ?Last Taken ?Type omega-3 fatty acids 1,000 mg 1,000 mg PO DAILY supplement 12/10/20 12/21/20 08:00 History capsule (Fish Oil Concentrate) lactobacillus combination no.4 3 3,000 mmu cells PO DAILY supplement 01/04/21 01/17/21 08:00 History billion cell capsule (Probiotic) multivitamin 1 tab PO DAILY supplement 01/04/21 01/17/21 08:00 History acetaminophen 500 mg tablet 1,000 mg (2 x 500 mg) PO Q8H #100 01/19/21 Unknown Rx tabs ciprofloxacin HCl 500 mg tablet 500 mg PO BID #14 TABLETS 03/04/24 Unknown Rx ondansetron 8 mg disintegrating 8 mg PO Q8H PRN nausea and 03/04/24 Unknown Rx tablet vomiting #15 tabs oxycodone-acetaminophen 5 mg-325 0.5 - 1 tab (0.5 - 1 x 5-325 mg) 03/04/24 Unknown Rx mg tablet PO Q6H PRN PRN Pain 3 days #10 TABLETS Allergy/AdvReac Type Severity Reaction Status Date / Time chlorpromazine (From Allergy Anaphylaxis Verified 03/04/24 00:11 Thorazine) niacin Allergy Hives Verified 03/04/24 00:11 prochlorperazine (From Allergy Unknown Verified 03/04/24 00:11 Compazine) prochlorperazine edisylate Allergy Unknown Verified 03/04/24 00:11 (From Compazine) prochlorperazine maleate Allergy Unknown Verified 03/04/24 00:11 (From Compazine) promethazine HCl (From Allergy Unknown Verified 03/04/24 00:11 Phenergan) trimethobenzamide HCl (From Allergy Unknown Verified 03/04/24 00:11 Tigan) codeine AdvReac Other Verified 03/04/24 00:11 Surgical History Presence of unspecified artificial knee joint History of total right hip arthroplasty Hx of colonoscopy Hx of breast lump removal Hx of laparoscopy Social History Smoking Status: Never smoker ROS ROS ED Constitutional Constitutional ED: Denies chills or fever(s) Eyes Eyes: Denies change in vision or diplopia ENT ENT ED: Denies rhinorrhea or sore throat Cardiovascular Cardiovascular: Denies chest pain or palpitations Respiratory/Chest Respiratory/Chest: Denies cough or dyspnea Gastrointestinal Gastrointestinal: Reports abdominal pain, nausea and vomiting; Denies diarrhea Genitourinary Genitourinary ED: Reports as per HPI and flank pain; Denies dysuria or hematuria Musculoskeletal Musculoskeletal: Reports back pain; Denies neck pain Integumentary Denies abscess or rash Neurologic Neurologic: Denies headache(s), paresthesias or weakness Psychiatric Psychiatric: Denies anxiety or suicidal thoughts EXAM Physical Exam Const Vital Signs: 03/04/24 00:11 Temperature 98.1 F Temperature Source Oral Pulse Rate 72 Respiratory Rate 16 Blood Pressure 106/95 H Blood Pressure Mean 98 Pulse Ox 98 Oxygen Delivery Method Room Air Positive well nourished and well developed Constitutional Narrative: Uncomfortable, in pain, no distress General Appearance ED: well developed and NAD HEENT Reports moist mucous membranes normocephalic and atraumatic Eyes PERRL and EOMs intact bilaterally Neck full ROM and supple Resp normal respiratory effort and clear to auscultation bilaterally Cardio regular rate, regular rhythm and no murmurs GI non-tender and non-distended Auscultation: normoactive bowel sounds Palpation: soft Back/Spine General Back: CVA tenderness left (minimal) and other FROM Extremity normal to inspection General Extremety ED: Negative for edema, pulses abnormal or tenderness General Extremity: Negative for edema or pulses abnormal Neuro oriented x3, CN's II-XII intact bilaterally and no sensory deficits noted Sensorium / Orientation: awake and alert Motor Exam: strength 5/5 throughout Skin no rashes or lesions noted and no wounds MDM MDM MDM Narrative Medical decision making narrative: Patient was given Zofran and Toradol, she is feeling much better with barely any discomfort on reevaluation. Her vital signs are normal, she does have the symptoms for couple hours I do not think we have to do blood work, but her urine was sent and is showing signs of infection so and send him that for culture and starting her on Cipro. She is not septic, she is very well-appearing with normal vital signs. Therefore at this time symptomatic treatment is warranted, however, I reviewed the CT images and report which I agree with, it shows a large stone that is 1 cm and in the intrarenal collecting system, obstructing and likely responsible for her renal colic. She will need to follow-up with urology as soon as possible for this. She is given that information, prescription for antibiotics, analgesics, and antiemetic and she is comfortable with that plan. Lab Data Attestation: I reviewed the patient's lab results. Labs: Laboratory Results - last 24 hr 03/04/24 01:04 Urine Color Yellow Urine Clarity Sl. Cloudy Urine pH 8.0 Ur Specific [place] 1.015 Urine Protein 30 H Urine Glucose (UA) Normal Urine Ketones Negative Urine Occult Blood 150 H Urine Nitrite Negative Urine Bilirubin Negative Urine Urobilinogen Normal Ur Leukocyte Esterase 500 H Urine RBC 5-10 SEEN Urine WBC 10-25 SEEN Ur Squamous Epith Cells 5-10 SEEN Urine Bacteria 4+ Hyaline Casts 10-25 SEEN Fine Granular Casts 5-10 SEEN Urine Mucus RARE Radiography Diagnostic Testing: Clinical Impression(s) from Imaging Studies Abdomen/Pelvis CT 03/04/24 00:25 IMPRESSION: There is a 1 cm stone in the intrarenal collecting system of the left kidney, obstructing the upper pole calyces. Electronically Signed: Jose Luis Manuel MD at 1:33 EDT , Discharge Plan Triage Chief Complaint: Flank Pain ED Provider: Meet Somers Dx/Rx/DC Orders Clinical Impression: Renal colic on left side, Obstructive uropathy Instructions: ED Kidney Stone with Pain Prescriptions: New ciprofloxacin HCl 500 mg tablet 500 mg PO BID Qty: 14 0RF ondansetron 8 mg tablet,disintegrating 8 mg PO Q8H PRN (Reason: nausea and vomiting) Qty: 15 0RF oxycodone-acetaminophen 5-325 mg tablet 0.5 - 1 tab PO Q6H PRN PRN (Reason: Pain) 3 Days Qty: 10 0RF Continued omega-3 fatty acids [Fish Oil Concentrate] 1,000 mg capsule 1,000 mg PO DAILY Patient Comments: STOPPED FOR SURGERY multivitamin Tablet 1 tab PO DAILY Probiotic 3 billion cell Capsule 3,000 mmu cells PO DAILY acetaminophen 500 mg Tablet 1,000 mg PO Q8H Qty: 100 0RF Discontinued cephalexin 500 mg capsule 500 mg PO ONCE Qty: 4 1RF Rx Instructions: Take 4 capsules one hour prior to dental work. cephalexin 500 mg capsule 500 mg PO ONCE Qty: 4 0RF Rx Instructions: take Within 1 hour of dental procedure Primary Care Provider: Rufina Bellamy Referrals: Amy Genao MD [Med Staff - Active Staff] - As soon as possible Rufina Bellamy DO [Primary Care Provider] - Print Language: Maltese Disposition Disposition: Home, Self Care
[2024-03-04] MEDS: Ondansetron 4 MG/2 ML Vial IV (00:34)
[2024-03-04] MEDS: Ketorolac 15 MG/ML Vial IV (00:34)
[2024-03-04 01:10] LABS: Color, Urine Yellow (Yellow); Glucose, Dipstick Normal (Normal); Ketone-Dipstick Negative (Negative); Leukocyte Esterase-Dipstick 500 /ul (Negative); Nitrite-Dipstick Negative (Negative); Occult Blood-Urine 150 /ul (Negative); Protein-Dipstick 30 mg/dl (Negative); Specific Gravity, Urine 1.015 (1.002-1.030); Urine Bilirubin Dipstick Negative (Negative); Urine Clarity Sl. Cloudy (Clear); Urine Urobilinogen Normal (Normal)
[2024-03-04 01:20] LABS: Red Blood Cells-Urine 5-10 SEEN /hpf (0-5); White Blood Cells 10-25 SEEN /hpf (0-5)
[2024-03-04 01:21] LABS: Bacteria 4+ /hpf (None Seen); Fine Granular Cast- Urine 5-10 SEEN /lpf (0-5); Hyaline Cast 10-25 SEEN /lpf (0-5); Mucous, Urine RARE /hpf (<or=2+); Squamous Epithelial Cells - UA 5-10 SEEN /hpf (5-10)
[2024-03-04] MEDS: Ciprofloxacin 500 MG Tablet PO (02:20)
[2024-03-04 02:27] VITALS: BP 124/69; PULSE 78; RESP 18; TEMP 36.7; O2SAT 97
== END 2024-03-04 02:29 | disposition home or self-care (01) ==
PROVIDERS: Emergency Provider Emergency Medicine; PCP Family Medicine; Visit Provider Emergency Medicine
DX: N20.0 Calculus of kidney (principal)
CPT/HCPCS: 99282; 74176; 81001; 87086; 87088; 87186; 96374; 96375; A4216; J2405

== ENCOUNTER 2024-03-05 17:07 | Inpatient (IN) | payer MEDICARE, OTHER, SELFPAY ==
[2024-03-05] VITALS (13 sets, daily range): BP systolic 100–113; BP diastolic 47–61; PULSE 71–88; RESP 16–18; TEMP 37–38.3; O2SAT 86–99; BMI 30.4
[2024-03-05] MEDS: Ipratropium/Albuterol Sulfate 3 ML AMPUL.NEB INHALATION (14:54)
--- NOTE | 2024-03-05 15:10 | RAD_ITS ---
STUDY: X-RAY CHEST REASON FOR EXAM: Female, 68 years old. Hypoxia. TECHNIQUE: Frontal and lateral views of the chest. COMPARISON: None. FINDINGS: The lungs are clear and expanded. Atelectasis/scarring at the left base. There is no demonstrated pleural abnormality. Normal size heart. Normal mediastinum and anna. Normal visualized pulmonary arteries. Normal visualized aortic arch and descending thoracic aorta. Normal visualized thoracic spine. Normal visualized ribs, clavicles, and shoulders. Surgical clips projected over the right axilla. No abnormality of the visualized soft tissue structures of the upper abdomen. RAD/Chest PA and Lateral IMPRESSION: No active or acute cardiopulmonary disease. Electronically Signed: Vincenzo Gonzalez MD at 15:26 EDT ,
--- NOTE | 2024-03-05 15:24 | PRE.ANES_ITS ---
ASA Classification* ASA Classification ASA Classification: 2 and E Assessment & Plan Anesthesia* Anesthesia Assessment Anesthesia Assessment: Discussed sedation and/or anesthesia options, risks, benefits, and alternatives with patient/parents/legal guardian/POA. Questions invited. The patient/parents/legal guardian/POA seems to understand and agrees to proceed with anesthesia plan. Reviewed the physical assessment, medical history, allergy history and patient home medications list prior to surgery/procedure/anesthetic and documented any changes. Performed airway and anesthesia risk assessments. Anesthesia Type Anesthesia Type: MAC History Source History Obtained from:: Patient and Chart Anesthesia Focused Assessment* Temperature: 99.6 F Pulse Rate: 74 Blood Pressure: 110/61 Respiratory Rate: 16 Pulse Ox: 90 Oxygen Delivery Method: Room Air Airway Assessment Mouth opens: >3 cm Mallampati Score: III Teeth Condition: Caps/Crowns (Multiple crowns. All crowns are tight. ) Neck Range of motion (ROM): Limited ROM (Somewhat decreased extension.) Focused Labs Anesthesia Preop lab: CBC WBC 4.7 K/mm3 (4.4-11.0) 02/08/24 08:00 RBC 4.35 M/mm3 (4.2-5.4) 02/08/24 08:00 Hgb 13.1 g/dL (12.0-15.0) 02/08/24 08:00 Hct 41.0 % (37-47) 02/08/24 08:00 Plt Count 244 K/mm3 (150-450) 02/08/24 08:00 CHEMISTRY Potassium 4.7 mmol/L (3.5-5.1) 02/08/24 08:00 Sodium 138 mmol/L (136-145) 02/08/24 08:00 Magnesium 2.0 mg/dL (1.6-2.6) 01/07/21 08:36 BUN 17 mg/dL (7-18) 02/08/24 08:00 Creatinine 0.85 mg/dL (0.55-1.02) 02/08/24 08:00 Glucose 93 mg/dL (74-106) 02/08/24 08:00 POC Glucose 102 mg/dL (70-110) 01/18/21 07:33 TSH 3.61 uIU/mL (0.358-3.74) 12/17/20 07:02 COAG PT 11.8 SECONDS (11.7-14.9) 01/07/21 08:36 Pre-Assessment Diagnosis/Proposed Procedure Planned Operative Procedure(s): cystoscopy, left urethral stent placement Anesthesia History 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 When Was Last Pacemaker Check QUESTION #4 FULL TEXT: You/Your Family Experience fever (hyperthermia) with Anesthesia Last Oral Intake Last Oral intake: Last Oral Intake NPO since 08:30 03/05/24 13:59 Meds taken in AM with sips of Yes 03/05/24 13:59 water? 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 supervisor Female Yes 03/05/24 13:59 HX of Motion Sickness Yes 03/05/24 13:59 HX of N/V After Surgery Yes 03/05/24 13:59 Non-Smoker Yes 03/05/24 13:59 Duration of Surgery greater No 03/05/24 13:59 than 60 minutes Number of Risk Factors 4 03/05/24 13:59 PONV Score Severe Risk 03/05/24 13:59 Height & Weight Height & Weight: Anesthesia: Height & Weight Height 5 ft 4 in 03/05/24 13:59 Weight: 80.286 kg 03/05/24 13:59 Body Mass Index (BMI) 30.4 03/05/24 13:59 Respiratory Assessment Respiratory Assessment - switch operators supervisor: Respiratory Tract Infection Hx - switch operators supervisor Hx Respiratory Tract Infection No 03/05/24 13:59 STOP Sleep Apnea STOP Sleep Apnea - switch operators supervisor: STOP Sleep Apnea - switch operators supervisor Hx Hypertension No 03/05/24 13:59 Hx Sleep Apnea No 03/05/24 13:59 CPAP BIPAP Do you snore loudly (louder No 03/05/24 13:59 than talking or can be heard Do you often feel tired/ No 03/05/24 13:59 fatigued/ sleepy during daytime? Has anyone observed you stop No 03/05/24 13:59 breathing during sleep? STOP Results Negative 03/05/24 13:59 QUESTION #5 FULL TEXT : Do you snore loudly (louder than talking or can be heard through closed doors)? 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 Specify any problems Hx of Preganancy in last 3 No 03/05/24 13:59 Months Nurse Filling Out Transfusion SADIQ 03/05/24 13:59 & Questions: Date: 03/05/24 03/05/24 13:59 Time: 14:08 03/05/24 13:59 Patient unable to answer at this time (ie. confused, unrespo /Reproduction History /Reproductive History - switch operators supervisor: /Reproductive Hx- switch operators supervisor Hx Now Gestational Age (in weeks): EDC: Hx Hx Para Hx Section SAB Active Medications Active Medications: Current Medications Generic Name Dose Route Start Last Admin Trade Name Freq PRN Reason Stop Dose Admin Lactated Ringer's 1,000 mls @ 15 mls/hr 03/05/24 13:45 IV .Q48H LESLIE Ciprofloxacin 400 mg in 200 mls @ 200 mls/hr 03/05/24 15:02 Cipro IV 03/05/24 16:01 X1 ONE PFSH Medical History Wears glasses Cancer Arthritis Back pain Injury of head and neck Gastric reflux Non-smoker History of pain when walking Home Medications ?Medication ?Instructions ?Recorded ?Last Taken ?Type omega-3 fatty acids 1,000 mg 1,000 mg PO DAILY supplement 12/10/20 12/21/20 08:00 History capsule (Fish Oil Concentrate) lactobacillus combination no.4 3 3,000 mmu cells PO DAILY supplement 01/04/21 01/17/21 08:00 History billion cell capsule (Probiotic) multivitamin 1 tab PO DAILY supplement 01/04/21 01/17/21 08:00 History ciprofloxacin HCl 500 mg tablet 500 mg PO BID #14 TABLETS 03/04/24 Unknown Rx ondansetron 8 mg disintegrating 8 mg PO Q8H PRN nausea and 03/04/24 Unknown Rx tablet vomiting #15 tabs oxycodone-acetaminophen 5 mg-325 0.5 - 1 tab (0.5 - 1 x 5-325 mg) 03/04/24 03/05/24 08:30 Rx mg tablet PO Q6H PRN PRN Pain 3 days #10 TABLETS Allergy/AdvReac Type Severity Reaction Status Date / Time chlorpromazine (From Allergy Anaphylaxis Verified 03/05/24 13:56 Thorazine) niacin Allergy Hives Verified 03/05/24 13:56 prochlorperazine (From Allergy Unknown Verified 03/05/24 13:56 Compazine) prochlorperazine edisylate Allergy Unknown Verified 03/05/24 13:56 (From Compazine) prochlorperazine maleate Allergy Unknown Verified 03/05/24 13:56 (From Compazine) promethazine HCl (From Allergy Unknown Verified 03/05/24 13:56 Phenergan) trimethobenzamide HCl (From Allergy Unknown Verified 03/05/24 13:56 Tigan) codeine AdvReac Other Verified 03/05/24 13:56 Surgical History Presence of unspecified artificial knee joint History of total right hip arthroplasty Hx of colonoscopy Hx of breast lump removal Hx of laparoscopy Social History Smoking Status: Never smoker Review of Systems (Anesthesia) ROS Narrative System reviewed and no additional complaints, except as documented.
[2024-03-05] MEDS: Piperacil/Tazobactam 3.375 GM in 0.9% Normal Saline (50mL MB+) 50 ML IV ×2 (16:07→22:02)
--- NOTE | 2024-03-05 16:55 | PCM.POST.ANE ---
Anesthesia: Postop Eval I Current Vital Signs Temperature: 99.3 F Pulse Rate: 76 Blood Pressure: 101/47 Respiratory Rate: 16 Pulse Ox: 99 Oxygen Delivery Method: Nasal Cannula (3 l/m oxygen) Assessment Airway patent: Yes Spontaneous unlabored respirations: Yes Mental status: Awake and Calm nausea: No Vomiting: No Anesthesia Complication: No Fluid Hydration Crystalloid volume administer (ml): 200 Total IV fluid infused: 200 Progress Note Anesthesia document: Postop Eval 1 completed: Yes
[2024-03-05] MEDS: 0.9% Normal Saline (1000mL) 1,000 ML 15 ML IV (17:03)
[2024-03-05 17:10] LABS: Absolute Lymphocyte Count 0.37 X10^3/uL (0.83-4.51); Absolute Neutrophil Count 10.3 X10^3/uL (2.0-7.7); Basophil# 0.01 X10^3/uL; Basophil% 0.1 % (0-1); Hematocrit 35.9 % (37-47); Hemoglobin 11.3 g/dL (12.0-15.0); Lymphocyte # 0.37 X10^3/ul (0.83-4.51); Lymphocyte % 3.3 % (19-41); Mean Corp Hgb Conc 31.5 g/dL (32-36); Mean Corpuscular Volume 95.2 fL (81-99); Mean Platelet Vol. 11.4 fl (6.2-12.0); Monocyte% 4.4 % (0-10); NRBC Flagged by Analyzer 0 % (0-5); Neutrophil # 10.29 X10^3/uL (2.7-7.7); Neutrophil % 91.5 % (47-70); POSITIVE DIFFERENTIAL YES; Platelet Count 157 K/mm3 (150-450); RBC Distribution Width CV 13.6 % (11.6-14.6); RBC Distribution Width SD 47.8 fl (35.1-43.9); Red Blood Count 3.77 M/mm3 (4.2-5.4); White Blood Count 11.3 K/mm3 (4.4-11.0)
--- NOTE | 2024-03-05 17:10 | PCM.POSTANE2 ---
Anesthesia Postop Eval I Sum Postop Eval Completion status Anesthesia document: Postop Eval 1 completed: Yes Anesthesia Postop Eval I Summary Anesthesia Postop Eval I Summary: Anesthesia Postop Eval I: Assessment Summary Airway patent Yes 03/05/24 16:58 Spontaneous unlabored Yes 03/05/24 16:58 respirations Mental status Awake,Calm 03/05/24 16:58 nausea No 03/05/24 16:58 Vomiting No 03/05/24 16:58 Anesthesia Postop Eval I: Fluid Summary Crystalloid volume administer 200 03/05/24 16:58 (ml) Colloids volume administered ( ml) Blood Product volume administered (ml) Total IV fluid infused 200 03/05/24 16:58 Anesthesia Postop Eval I: Summary Notes Anesthesia Complication No 03/05/24 16:58 Anesthesia Complication Comment: Post-operative progress note Anesthesia: Postop Eval II Evaluation Mental status: Awake and Calm Pain Level: 0 nausea: No Vomiting: No Complications Anesthesia Complication: No
--- NOTE | 2024-03-05 17:16 | PCM.OPRPT ---
Report of Operation Date of Procedure: 03/05/24 Pre-Operative Diagnosis: Left ureteral obstruction secondary to stone, with infection Post-Operative Diagnosis: Same Surgery/Procedure Performed:: Cystoscopy with left ureteral stent insertion Surgeon: Amy Genao Type of Anesthesia: MAC Specimen's removed: Urine for culture Description of Procedure: The patient is a 68-year-old female with an obstructing left proximal ureteral calculus approximately 1 cm in size. I saw her in the office earlier today and she was having active nausea and vomiting and uncontrolled pain. The decision was made to proceed with cystoscopy and left ureteral stent insertion and informed consent was obtained. By the time the patient arrived for intervention, she began to have fevers. She was taken to the operating room and placed on the operating room table. Anesthesia monitored the head, neck, airway, IV access and vital signs throughout the case. Once anesthesia was appropriately administered, she was placed into dorsal lithotomy position and was prepped and draped in usual sterile fashion. The cystoscope was inserted through the urethra under direct visualization into the urinary bladder. The bladder revealed no evidence of mass, erythema or abnormality. The left ureteral orifice was identified and gently intubated with a 0.035 Glidewire. The wire advanced into the renal pelvis is seen on fluoroscopy beyond the level of the stone. Urine began to flow at this point from the left ureteral orifice. A 6 Croatian 24 cm JJ stent was then placed over the Glidewire with good positioning in the renal pelvis as well as the urinary bladder. Purulent urine began to drain from the left kidney and a urinary culture was sent. A 16 Croatian Barrera catheter was inserted to straight drain and 10 cc was used to fill the balloon. She was awakened and taken to the recovery room in good condition. There were no complications during the procedure. Grafts/Implants Used: 6 Croatian x 24 cm JJ stent Complications None Admit VTE Documentation VTE Present on Admission: Yes VTE Mechan Device Prophylaxis: SCD's (Her IV is in the top of the left foot, only the right leg has an SCD in place.) VTE Pharm Prophylaxis ordered?: Yes
[2024-03-05 17:26] LABS: ALB/GLOB Ratio 0.8 RATIO (0.9-2.4); AST(SGOT) 22 U/L (15-37); Alanine Aminotransfer ALT/SGPT 26 U/L (13-56); Albumin, Serum 2.7 g/dL (3.2-5.0); Alkaline Phosphatase 74 U/L (45-117); Anion Gap 7 (5-15); BUN 35 mg/dL (7-18); Calcium,Total 8.6 mg/dL (8.5-10.1); Chloride 106 mmol/L (98-107); Creatinine, Serum 1.46 mg/dL (0.55-1.02); EST Glomerular Filtration Rate 38 mL/min (>60); Est Glom Filt Rate - Afr Amer 46 mL/min (>60); Globulin 3.6 g/dL (2.2-4.2); Glucose 121 mg/dL (74-106); Potassium 3.7 mmol/L (3.5-5.1); Protein, Total 6.3 g/dL (6.4-8.2); Sodium Level 139 mmol/L (136-145)
--- NOTE | 2024-03-05 17:55 | PN.HOSP_ITS ---
Subjective Subjective Patient was seen and examined today at the request of urological surgery, she underwent stent placement of the left ureter today due to a left ureteral stone. Patient's chronic medical problems include osteoarthritis. Labs obtained today revealed an elevated white blood cell count 11.3, chemistry profile was abnormal for a BUN of 35 and a creatinine of 1.46, urine culture from 03/04/2024 is growing presumptive E. coli. Objective Data Objective Data Vital Signs: Vital Signs Temp Pulse Resp BP Pulse Ox O2 Del Method O2 Flow Rate 98.6 F 77 16 113/49 L 98 Nasal Cannula 3 03/05/24 17:20 03/05/24 17:20 03/05/24 17:20 03/05/24 17:20 03/05/24 17:20 03/05/24 17:20 03/05/24 17:20 Oxygen Flow Rate (L/min) 3 Oxygen Delivery Method Nasal Cannula Weight: 80.286 kg Body Mass Index (BMI) 30.4 Intake & Output: Intake and Output for Last 24 Hours 03/03/24 03/04/24 03/05/24 23:59 23:59 23:59 Intake Total 50 / 50 Output Total 110 / 110 Balance -60 / -60 Lab / Micro Data 03/05/24 17:02 03/05/24 17:02 Labs: Laboratory Results - last 24 hr 03/05/24 17:02: WBC 11.3 H, RBC 3.77 L, Hgb 11.3 L, Hct 35.9 L, MCV 95.2, MCH 30.0, MCHC 31.5 L, RDW Std Deviation 47.8 H, RDW Coeff of Jatinder 13.6, Plt Count 157, MPV 11.4, Immature Gran % (Auto) 0.700, Neut % (Auto) 91.5 H, Lymph % (Auto) 3.3 L, [place] % (Auto) 4.4, Eos % (Auto) 0.0, Baso % (Auto) 0.1, Absolute Neuts (auto) 10.3 H, Absolute Lymphs (auto) 0.37 L, Nucleated RBC % 0, Sodium 139, Potassium 3.7, Chloride 106, Carbon Dioxide 26.0, Anion Gap 7, BUN 35 H, C reatinine 1.46 H, Estim Creat Clear Calc 37.80, Est GFR (MDRD) Af Amer 46 L, Est GFR (MDRD) Non-Af 38 L, BUN/Creatinine Ratio 24.0 H, Glucose 121 H, Calcium 8.6, Total Bilirubin 0.50, AST 22, ALT 26, Alkaline Phosphatase 74, Total Protein 6.3 L, Albumin 2.7 L, Globulin 3.6, Albumin/Globulin Ratio 0.8 L Radiography Diagnostic Testing: Radiology Impression Chest X-Ray 03/05/24 15:10 IMPRESSION: No active or acute cardiopulmonary disease. Electronically Signed: Vincenzo Gonzalez MD at 15:26 EDT , Physical Exam Const alert, oriented x3, no apparent distress and healthy appearing Constitutional Narrative: Patient appears slightly sedated and has just returned from surgery. General Appearance: cooperative, well kempt and well developed Orientation / Consciousness: awake, oriented to person, oriented to place and oriented to time HEENT normocephalic, head/scalp atraumatic and moist oral mucous membranes Eyes PERRL, EOMs intact bilaterally and conjunctivae normal Neck supple, no JVD, thyroid normal and no carotid bruits General: trachea midline Resp normal respiratory effort, no retractions, no use of accessory muscles and clear to auscultation bilaterally Auscultation: Negative for rales, rhonchi or wheezes Cardio regular rate, regular rhythm, S1 normal heart sound, S2 normal heart sound, no murmurs, no rub and no gallops GI normal to inspection, nondistended, normoactive bowel sounds, soft to palpation, non-tender and non-distended Extremity no clubbing, cyanosis or edema Skin no rashes or lesions noted General Skin Exam: no breakdown Neuro oriented x3, CN's II-XII intact bilaterally, no focal motor deficits and no sensory deficits noted Sensorium / Orientation: awake and alert Speech: speech normal Psych affect normal Assessment & Plan Assessment/Plan (1) Obstructive uropathy: PLAN: Plan 1. Pyelonephritis secondary to obstructive uropathy-patient is currently on Zosyn, urine culture grew out E. coli from yesterday, I think it is appropriate to continue the Zosyn for now. #2 elevated creatinine and BUN-I will place the patient on fluids, BMP will be repeated tomorrow #3 obstructive uropathy left ureter-postop day 0 stent placement left ureter, urology is participating in her care Total clinical time spent by myself addressing the patient's medical issues, reviewing all of her data, and collaborating with patient's care team: 35 minutes Charges/Coding Visit Charges Inpatient E&M: 31832 Subs Hosp L2
[2024-03-05] MEDS: 0.9% Normal Saline (1000mL) 1,000 ML 125 ML IV (18:58)
[2024-03-06] VITALS (8 sets, daily range): BP systolic 102–118; BP diastolic 53–62; PULSE 66–78; RESP 13–16; TEMP 36.4–37.1; O2SAT 94–99
[2024-03-06] MEDS: Ondansetron 4 MG/2 ML Vial IV ×2 (03:29→17:12)
[2024-03-06] MEDS: 0.9% Normal Saline (1000mL) 1,000 ML 125 ML IV (03:36)
[2024-03-06] MEDS: Piperacil/Tazobactam 3.375 GM in 0.9% Normal Saline (50mL MB+) 50 ML IV ×2 (05:39→13:18)
[2024-03-06] MEDS: Enoxaparin 40 MG/0.4 ML Syringe SC (05:40)
[2024-03-06 06:01] LABS: Hemoglobin 10.5 g/dL (12.0-15.0); Mean Corp Hgb Conc 31.8 g/dL (32-36); Mean Corpuscular Hgb 30.2 pg (27.0-32.0); Mean Corpuscular Volume 94.8 fL (81-99); Mean Platelet Vol. 11.4 fl (6.2-12.0); Platelet Count 141 K/mm3 (150-450); RBC Distribution Width CV 13.6 % (11.6-14.6); RBC Distribution Width SD 47.5 fl (35.1-43.9); Red Blood Count 3.48 M/mm3 (4.2-5.4); White Blood Count 8.4 K/mm3 (4.4-11.0)
[2024-03-06 06:24] LABS: Anion Gap 5 (5-15); BUN 27 mg/dL (7-18); BUN/Creat Ratio 26.5 RATIO (10-20); Chloride 107 mmol/L (98-107); Creatinine, Serum 1.02 mg/dL (0.55-1.02); EST Glomerular Filtration Rate 57 mL/min (>60); Est Glom Filt Rate - Afr Amer 69 mL/min (>60); Estimated Creatinine Clearance 54.11 ml/min; Glucose 126 mg/dL (74-106); Potassium 3.6 mmol/L (3.5-5.1); Sodium Level 137 mmol/L (136-145)
--- NOTE | 2024-03-06 09:31 | PN.URO_ITS ---
Subjective Subjective Feeling much better this morning. She is not having any pain, still with mild nausea, but is currently eating breakfast. Would like the catheter out. Objective Data Objective Data Vital Signs: Vital Signs Temp Pulse Resp BP Pulse Ox O2 Del Method O2 Flow Rate 98.2 F 67 13 116/53 L 94 Room Air 3 03/06/24 07:00 03/06/24 07:00 03/06/24 07:00 03/06/24 07:00 03/06/24 07:00 03/06/24 07:00 03/05/24 17:20 Oxygen Flow Rate (L/min) 3 Oxygen Delivery Method Room Air Weight: 80.286 kg Body Mass Index (BMI) 30.4 Intake & Output: Intake and Output for Last 24 Hours 03/04/24 03/05/24 03/06/24 23:59 23:59 23:59 Intake Total 78.75 / 178.75 1646.25 / 1646.25 Output Total 110 / 510 750 / 750 Balance -31.25 / -331.25 896.25 / 896.25 Lab / Micro Data 03/06/24 05:45 03/06/24 05:45 Labs: Laboratory Results - last 24 hr 03/05/24 17:02: WBC 11.3 H, RBC 3.77 L, Hgb 11.3 L, Hct 35.9 L, MCV 95.2, MCH 30.0, MCHC 31.5 L, RDW Std Deviation 47.8 H, RDW Coeff of Jatinder 13.6, Plt Count 157, MPV 11.4, Immature Gran % (Auto) 0.700, Neut % (Auto) 91.5 H, Lymph % (Auto) 3.3 L, [place] % (Auto) 4.4, Eos % (Auto) 0.0, Baso % (Auto) 0.1, Absolute Neuts (auto) 10.3 H, Absolute Lymphs (auto) 0.37 L, Nucleated RBC % 0, Sodium 139, Potassium 3.7, Chloride 106, Carbon Dioxide 26.0, Anion Gap 7, BUN 35 H, C reatinine 1.46 H, Estim Creat Clear Calc 37.80, Est GFR (MDRD) Af Amer 46 L, Est GFR (MDRD) Non-Af 38 L, BUN/Creatinine Ratio 24.0 H, Glucose 121 H, Calcium 8.6, Total Bilirubin 0.50, AST 22, ALT 26, Alkaline Phosphatase 74, Total Protein 6.3 L, Albumin 2.7 L, Globulin 3.6, Albumin/Globulin Ratio 0.8 L 03/06/24 05:45: WBC 8.4, RBC 3.48 L, Hgb 10.5 L, Hct 33.0 L, MCV 94.8, MCH 30.2, MCHC 31.8 L, RDW Std Deviation 47.5 H, RDW Coeff of Jatinder 13.6, Plt Count 141 L, MPV 11.4, Sodium 137, Potassium 3.6, Chloride 107, Carbon Dioxide 25.0, Anion Gap 5, BUN 27 H, Creatinine 1.02, Estim Creat Clear Calc 54.11, Est GFR (MDRD) Af Amer 69, Est GFR (MDRD) Non-Af 57 L, BUN/Creatinine Ratio 26.5 H, Glucose 126 H, Calcium 8.0 L Radiography Diagnostic Testing: Radiology Impression Chest X-Ray 03/05/24 15:10 IMPRESSION: No active or acute cardiopulmonary disease. Electronically Signed: Vincenzo Gonzalez MD at 15:26 EDT Reading Location ID and State: [address] [place] [address] , Service support , Physical Exam Const alert, oriented x3 and no apparent distress HEENT normocephalic and head/scalp atraumatic Eyes General Eye: normal appearance of both eyes Neck supple General: normal visual inspection and trachea midline Lymph Lymphatic: no lymphedema noted Chest inspection of chest normal Resp normal respiratory effort and normal air movement Cardio regular rate and regular rhythm GI soft to palpation, non-tender and non-distended Narrative: blackwell draining clear yellow urine Extremity normal to inspection Skin no rashes or lesions noted, no jaundice, no petechiae and no mottling Neuro oriented x3 and CN's II-XII intact bilaterally Psych mental status grossly normal Assessment & Plan Assessment/Plan (1) Obstructive uropathy: (2) Left renal stone: (3) Urinary tract infection: PLAN: Plan await urine culture results continue antibiotics and supportive care remove blackwell plan for discharge on oral antibiotics with plans for stone management in 3 weeks
--- NOTE | 2024-03-06 10:27 | PCM.PN.HOSP ---
Subjective Subjective No issues overnight, leukocytosis is improved and her renal function is back to baseline Objective Data Objective Data Vital Signs: Vital Signs Temp Pulse Resp BP Pulse Ox O2 Del Method O2 Flow Rate 98.2 F 67 13 116/53 L 94 Room Air 3 03/06/24 07:00 03/06/24 07:00 03/06/24 07:00 03/06/24 07:00 03/06/24 07:00 03/06/24 07:00 03/05/24 17:20 Oxygen Flow Rate (L/min) 3 Oxygen Delivery Method Room Air Weight: 177 lb Body Mass Index (BMI) 30.4 Intake & Output: Intake and Output for Last 24 Hours 03/05/24 03/06/24 03/07/24 03:59 03:59 03:59 Intake Total 1228.75 / 1228.75 546.25 / 546.25 Output Total 510 / 510 350 / 350 Balance 718.75 / 718.75 196.25 / 196.25 Lab / Micro Data 03/06/24 05:45 03/06/24 05:45 Labs: Laboratory Results - last 24 hr 03/05/24 17:02: WBC 11.3 H, RBC 3.77 L, Hgb 11.3 L, Hct 35.9 L, MCV 95.2, MCH 30.0, MCHC 31.5 L, RDW Std Deviation 47.8 H, RDW Coeff of Jatinder 13.6, Plt Count 157, MPV 11.4, Immature Gran % (Auto) 0.700, Neut % (Auto) 91.5 H, Lymph % (Auto) 3.3 L, [place] % (Auto) 4.4, Eos % (Auto) 0.0, Baso % (Auto) 0.1, Absolute Neuts (auto) 10.3 H, Absolute Lymphs (auto) 0.37 L, Nucleated RBC % 0, Sodium 139, Potassium 3.7, Chloride 106, Carbon Dioxide 26.0, Anion Gap 7, BUN 35 H, Creatinine 1.46 H, Estim Creat Clear Calc 37.80, Est GFR (MDRD) Af Amer 46 L, Est GFR (MDRD) Non-Af 38 L, BUN/Creatinine Ratio 24.0 H, Glucose 121 H, Calcium 8.6, Total Bilirubin 0.50, AST 22, ALT 26, Alkaline Phosphatase 74, Total Protein 6.3 L, Albumin 2.7 L, Globulin 3.6, Albumin/Globulin Ratio 0.8 L 03/06/24 05:45: WBC 8.4, RBC 3.48 L, Hgb 10.5 L, Hct 33.0 L, MCV 94.8, MCH 30.2, MCHC 31.8 L, RDW Std Deviation 47.5 H, RDW Coeff of Jatinder 13.6, Plt Count 141 L, MPV 11.4, Sodium 137, Potassium 3.6, Chloride 107, Carbon Dioxide 25.0, Anion Gap 5, BUN 27 H, Creatinine 1.02, Estim Creat Clear Calc 54.11, Est GFR (MDRD) Af Amer 69, Est GFR (MDRD) Non-Af 57 L, BUN/Creatinine Ratio 26.5 H, Glucose 126 H, Calcium 8.0 L Radiography Diagnostic Testing: Radiology Impression Chest X-Ray 03/05/24 15:10 IMPRESSION: No active or acute cardiopulmonary disease. Electronically Signed: Vincenzo Gonzalez MD at 15:26 EDT Reading Location ID and State: [facility] / [place] , Service support , Physical Exam Narrative General: Alert, Oriented x3, Cooperative, No apparent distress HEENT: Atraumatic, PERRLA, EOMI, Normocephalic Oral: Moist Mucosa Neck: Supple, No JVD Lungs: Diminished, Normal air movement, No rhonchi, No wheeze, No rales Cardiovascular: Regular rate, Regular Rhythm, Normal S1, Normal S2, No murmurs Abdomen: Soft, Non Tender, Non-Distended, No Hepato-splenomegaly Extremities: No edema, Capillary Refill Less than 3 Seconds Skin: No rashes, No breakdown Musculoskeletal: No Tenderness to Palpation of Joints or Extremities Neurological: No focal neurological deficits, Motor Exam 5/5 strength throughout, Sensory exam intact to light touch and pain Psych/Mental Status: Normal Affect, Appropriate Assessment & Plan Assessment/Plan (1) Obstructive uropathy: PLAN: Plan 1. Pyelonephritis secondary to obstructive uropathy status post stent on 03/05/2024/CRUZ ? Urine cultures are pending though preliminary cultures are showing E. coli ? She does have 7 days worth of Cipro from discharge from the ER on 03/03/2024 which she could potentially restart on discharge pending sensitivities of her urine culture ? She has improved with Zosyn ? Renal function has improved and is returned to baseline ? Also appears that she had been given Percocets on discharge from the ER as well which she can continue ? Pending urine culture results she is medically stable at this point for discharge DVT: Lovenox Charges/Coding Visit Charges Inpatient E&M: 74850 Subs Hosp L2
--- NOTE | 2024-03-06 11:40 | DCINST_ITS ---
Discharge Instructions Diet Discharge Diet: No restrictions Activity Discharge Activity: Return to Normal Activity Dressing / Incision Call your doctor if you observe: Fever of 101 or Higher, Inability to urinate and Inability to have a bowel movement Follow Up Care Please Follow Up With: Amy Genao MD When: The office will call her to make follow up arrangements. Please complete cipro antibiotics she has, 500mg BID for 7 days. thank you. Test Results: Test results from this visit will be discussed in further detail at your follow- up appointment, if applicable. Discharge Plan Admission Admit Date/Time: 03/05/24 17:07 Attending Provider: Amy Genao Primary Care Provider: Rufina Bellamy Consulting Providers: Shekhar Mejia Discharge Orders/Prescriptions Prescriptions: Continued omega-3 fatty acids [Fish Oil Concentrate] 1,000 mg capsule 1,000 mg PO DAILY Patient Comments: STOPPED FOR SURGERY multivitamin Tablet 1 tab PO DAILY Probiotic 3 billion cell Capsule 3,000 mmu cells PO DAILY ciprofloxacin HCl 500 mg tablet 500 mg PO BID Qty: 14 0RF ondansetron 8 mg tablet,disintegrating 8 mg PO Q8H PRN (Reason: nausea and vomiting) Qty: 15 0RF oxycodone-acetaminophen 5-325 mg tablet 0.5 - 1 tab PO Q6H PRN PRN (Reason: Pain) 3 Days Qty: 10 0RF Referrals / Follow Up: Rfuina Bellamy DO [Primary Care Provider] - Disposition Disposition (needs filled in before D/C Order can be placed): Home, Self Care
--- NOTE | 2024-03-06 13:15 | CASEMGMT ---
FOZIA CANDELARIO GREENHOUSE MANAGER CM to room to meet with patient for initial transition planning/care coordination assessment. FOZIA CANDELARIO introduced self and role at [facility]. Pt voices understanding and consents to assessment at this time. Pt resting in bed in no distress at this time. @ bedside. Pt is A/O at this time and answers all questions appropriately. Care providers, pharmacy, and demographics verified/updated at this time. PCP: Dr Bellamy Specialists: Dr Genao-urology Preferred Pharmacy: [facility]. Insurance: [facility], [facility] Prescription Benefit: Yes LNOK: , Gerardo. Daughter, Isabella Living Arrangements: Lives w/her , Gerardo, in [facility] home. [facility]SU w/2 steps to enter. Independent w/ADL's and IADL's. able to assist as needed. Transportation: Pt and . DME: Pt has a tub bench, cane, and walker available, but does not use any. States no need for further DME at this time. HHC/SNF: No history of either and denies needs for HHC or OP therapy. Pt has been to [facility] for OP therapy in the past. Pt/ wish for pt to return home and they have no concerns with going home at time of discharge. PLAN: Home Cr STACY RN, CM
--- NOTE | 2024-03-06 13:57 | PHA.DC.MR.R ---
Pharmacy [place] Med Reconciliation Pharmacy Service has performed discharge medication reconciliation for this patient. The patient's discharge medication list was reviewed for discrepancies and discrepancies were resolved. Medications at Discharge Home Medications omega-3 fatty acids 1,000 mg capsule (Fish Oil Concentrate) 1,000 mg PO DAILY supplement 12/10/20 lactobacillus combination no.4 3 billion cell capsule (Probiotic) 3,000 mmu cells PO DAILY supplement 01/04/21 multivitamin 1 tab PO DAILY supplement 01/04/21 ciprofloxacin HCl 500 mg tablet 500 mg PO BID infection #14 TABLETS 03/04/24 ondansetron 8 mg disintegrating tablet 8 mg PO Q8H PRN nausea and vomiting #15 tabs 03/04/24 oxycodone-acetaminophen 5 mg-325 mg tablet 0.5 - 1 tab (0.5 - 1 x 5-325 mg) PO Q6H PRN PRN Pain 3 days #10 TABLETS 03/04/24
--- NOTE | 2024-03-06 14:41 | CASEMGMT ---
Patient has order for discharge. RN CM in to discuss needs at discharge, at bedside. Patient denies needs or help at discharge. Patient had no further questions or concerns.
--- NOTE | 2024-03-06 14:53 | CHAPLAIN ---
Type of Pastoral Visit _x__ Initial Visit ___ Follow-up Visit ___ On-call Visit ___ General Patient Visit ___ Spiritual Assessment ___ Family Conference ___ Bereavement ___ Rapid Response ___ Code Blue ___ Other (describe below) Pastoral Care Referral From _x__ Patient ___ Family ___ Nurse ___ Physician ___ Employee Development Director ___ Wreath Machine Operator ___ Other (describe below) Sacrament/Intervention _x__ Active listening ___ Anointing ___ Jewish ___ Bereavement ___ Communion ___ Zo exploration ___ ___ Life review _x__ Prayer ___ Reconciliation ___ Sacrament of Sick _x__ Supportive presence ___ Wedding ___ Other (describe below) Pastoral Comments patient reports feeling better today and has hopes of going home today; spouse just left the room to go get something to eat; casual conversation and a prayer is given; no other needs noted
== END 2024-03-06 18:00 | disposition home or self-care (01) | DRG 660 ==
LOC: PCU 17:19
PROVIDERS: Admitting Provider Urology; PCP Family Medicine; Referring Provider Urology; Visit Provider Urology
PROC: 0T778DZ Dilation of Left Ureter with Intraluminal Device, Via Natural or Artificial Opening Endoscopic (ICD-10-PCS; principal; 2024-03-05 16:50)
DX: N13.6 Pyonephrosis (principal); N20.1 Calculus of ureter; N12 Tubulo-interstitial nephritis, not specified as acute or chronic; B96.20 Unspecified Escherichia coli [E. coli] as the cause of diseases classified elsewhere
CPT/HCPCS: 36415; 71046; 74176; 76000; 80048; 80053; 81001; 85025; 85027; 87040; 87077; 87086; 87088; 87186; 94640; 94668; 96374; 96375; 99282; J7030; J7120; A4216; J0744; J2405

== ENCOUNTER 2024-03-20 12:00 | Day surgery (SDC) | payer MEDICARE, OTHER, SELFPAY ==
[2024-03-20] VITALS (9 sets, daily range): BP systolic 116–127; BP diastolic 60–71; PULSE 62–79; RESP 14–16; TEMP 36.6–37; O2SAT 92–98; BMI 29.1
[2024-03-20] MEDS: Lactated Ringers 1,000 ML 15 ML IV (12:39)
--- NOTE | 2024-03-20 12:51 | PCM.PRE.AN2 ---
ASA Classification* ASA Classification ASA Classification: 2 Assessment & Plan Anesthesia* Anesthesia Assessment Anesthesia Assessment: Discussed sedation and/or anesthesia options, risks, benefits, and alternatives with patient/parents/legal guardian/POA. Questions invited. The patient/parents/legal guardian/POA seems to understand and agrees to proceed with anesthesia plan. Reviewed the physical assessment, medical history, allergy history and patient home medications list prior to surgery/procedure/anesthetic and documented any changes. Performed airway and anesthesia risk assessments. Anesthesia Type Anesthesia Type: General (see written pre anesthesia record for full assessment) Anesthesia Focused Assessment* Temperature: 97.8 F Pulse Rate: 67 Blood Pressure: 127/61 Respiratory Rate: 16 Pulse Ox: 97 Airway Assessment Mouth opens: >3 cm Mallampati Score: II Focused Labs Anesthesia Preop lab: CBC WBC 8.4 K/mm3 (4.4-11.0) 03/06/24 05:45 RBC 3.48 M/mm3 (4.2-5.4) L 03/06/24 05:45 Hgb 10.5 g/dL (12.0-15.0) L 03/06/24 05:45 Hct 33.0 % (37-47) L 03/06/24 05:45 Plt Count 141 K/mm3 (150-450) L 03/06/24 05:45 CHEMISTRY Potassium 3.6 mmol/L (3.5-5.1) 03/06/24 05:45 Sodium 137 mmol/L (136-145) 03/06/24 05:45 Magnesium 2.0 mg/dL (1.6-2.6) 01/07/21 08:36 BUN 27 mg/dL (7-18) H 03/06/24 05:45 Creatinine 1.02 mg/dL (0.55-1.02) 03/06/24 05:45 Glucose 126 mg/dL (74-106) H 03/06/24 05:45 POC Glucose 102 mg/dL (70-110) 01/18/21 07:33 TSH 3.61 uIU/mL (0.358-3.74) 12/17/20 07:02 COAG PT 11.8 SECONDS (11.7-14.9) 01/07/21 08:36 Pre-Assessment Diagnosis/Proposed Procedure Planned Operative Procedure(s): LEFT ESWL Anesthesia History Anesthesia History - financial secretary: Anesthesia History - financial secretary Hx Hospitalization Yes: 02/2024 FOR KIDNEY STONE 03/14/24 09:53 Any Problems With Anesthesia No 03/14/24 09:53 Cholinesterase deficiency No 03/14/24 09:53 You/Your Family Experience No 03/14/24 09:53 fever (hyperthermia) with Relationship Recent Exposure to Contagious No 03/20/24 12:32 Disease Does patient have nerve No 03/14/24 09:53 stimulator Patient instructed to have device shut off --Does patient have Pacemaker No 03/20/24 12:32 or ICD? When Was Last Pacemaker Check QUESTION #4 FULL TEXT: You/Your Family Experience fever (hyperthermia) with Anesthesia Last Oral Intake Last Oral intake: Last Oral Intake NPO since Meds taken in AM with sips of water? Meds patient instructed to take am of surgery PONV PONV - financial secretary: PONV - financial secretary Female Yes 03/14/24 09:53 HX of Motion Sickness Yes 03/14/24 09:53 HX of N/V After Surgery No 03/14/24 09:53 Non-Smoker Yes 03/14/24 09:53 Duration of Surgery greater Yes 03/14/24 09:53 than 60 minutes Number of Risk Factors 4 03/14/24 09:53 PONV Score Severe Risk 03/14/24 09:53 Height & Weight Height & Weight: Anesthesia: Height & Weight Height 5 ft 4 in 03/20/24 12:32 Weight: 77 kg 03/20/24 12:32 Body Mass Index (BMI) 29.1 03/20/24 12:32 Respiratory Assessment Respiratory Assessment - financial secretary: Respiratory Tract Infection Hx - financial secretary Hx Respiratory Tract Infection No 03/14/24 09:53 STOP Sleep Apnea STOP Sleep Apnea - financial secretary: STOP Sleep Apnea - financial secretary Hx Hypertension No: HYPOTENSION 03/14/24 09:53 Hx Sleep Apnea No 03/14/24 09:53 CPAP BIPAP Do you snore loudly (louder No 03/14/24 09:53 than talking or can be heard Do you often feel tired/ No 03/14/24 09:53 fatigued/ sleepy during daytime? Has anyone observed you stop No 03/14/24 09:53 breathing during sleep? STOP Results Negative 03/14/24 09:53 QUESTION #5 FULL TEXT : Do you snore loudly (louder than talking or can be heard through closed doors)? Tobacco Use History Tobacco Use History - financial secretary: Tobacco Use History - financial secretary Tobacco Use Smoking Status Never smoker 03/14/24 09:53 Hx Tobacco Use No 03/14/24 09:53 Years Smoking Packs Smoked per Day Smoking Cessation Date was within the last 15 years Hx Smoking Cessation Date Hx Smoking Cessation Counseling Hematologic Medial History Hematologic Hx - financial secretary: Hematologic Medical Hx - cranberry sorter Hx of Blood Transfusion Yes 03/14/24 09:53 Hx of Transfusion in last 3 No 03/14/24 09:53 Months Date of Last Transfusion (if within last 3 months) Ever experience any problems No 03/14/24 09:53 with transfusion(s)? Specify any problems Hx of Preganancy in last 3 No 03/14/24 09:53 Months Nurse Filling Out Transfusion DSCHRIBER 03/14/24 09:53 & Questions: Date: 03/14/24 03/14/24 09:53 Time: 09:55 03/14/24 09:53 Patient unable to answer at this time (ie. confused, unrespo /Reproduction History /Reproductive History - financial secretary: /Reproductive Hx- financial secretary Hx Now No 03/14/24 09:53 Gestational Age (in weeks): EDC: Hx Hx Para Hx Section SAB No 03/14/24 09:53 Active Medications Active Medications: Current Medications Generic Name Dose Route Start Last Admin Trade Name Gibran PRN Reason Stop Dose Admin Cefazolin Sodium 2 gm/ Sodium 110 mls @ 150 mls/hr 03/20/24 12:50 Chloride IV 03/20/24 13:33 PREOP ONE Lactated Ringer's 1,000 mls @ 15 mls/hr 03/20/24 12:15 03/20/24 12:39 IV 15 mls/hr .Q48H LESLIE Administration PFSH Medical History Wears hearing aid Post-menopausal Restless legs Urinary tract infection Left renal stone Wears glasses Cancer Arthritis Back pain Injury of head and neck Gastric reflux Non-smoker Home Medications ?Medication ?Instructions ?Recorded ?Last Taken ?Type omega-3 fatty acids 1,000 mg 1,000 mg PO DAILY supplement 12/10/20 03/01/24 History capsule (Fish Oil Concentrate) lactobacillus combination no.4 3 3,000 mmu cells PO DAILY supplement 01/04/21 03/01/24 History billion cell capsule (Probiotic) multivitamin 1 tab PO DAILY supplement 01/04/21 03/01/24 History ondansetron 8 mg disintegrating 8 mg PO Q8H PRN nausea and 03/04/24 Unknown Rx tablet vomiting #15 tabs oxycodone-acetaminophen 5 mg-325 0.5 - 1 tab (0.5 - 1 x 5-325 mg) 03/04/24 03/05/24 08:30 Rx mg tablet PO Q6H PRN PRN Pain 3 days #10 TABLETS Allergy/AdvReac Type Severity Reaction Status Date / Time chlorpromazine (From Allergy Anaphylaxis Verified 03/20/24 12:32 Thorazine) niacin Allergy Hives Verified 03/20/24 12:32 prochlorperazine (From Allergy Unknown Verified 03/20/24 12:32 Compazine) prochlorperazine edisylate Allergy Unknown Verified 03/20/24 12:32 (From Compazine) prochlorperazine maleate Allergy Unknown Verified 03/20/24 12:32 (From Compazine) promethazine HCl (From Allergy Unknown Verified 03/20/24 12:32 Phenergan) trimethobenzamide HCl (From Allergy Unknown Verified 03/20/24 12:32 Tigan) codeine AdvReac Other Verified 03/20/24 12:32 Surgical History History of cystoscopy Presence of unspecified artificial knee joint History of total right hip arthroplasty Hx of colonoscopy Hx of breast lump removal Hx of laparoscopy Social History Smoking Status: Never smoker Review of Systems (Anesthesia) ROS Narrative System reviewed and no additional complaints, except as documented.
[2024-03-20] MEDS: Cefazolin 2 GM in 0.9% Normal Saline (100mL Bag) 100 ML IV (14:13)
--- NOTE | 2024-03-20 14:55 | EX.PCM.DISCH ---
Discharge Instructions Diet Discharge Diet: No restrictions Activity Discharge Activity: Return to Normal Activity Dressing / Incision Call your doctor if you observe: Fever of 101 or Higher, Inability to urinate and Inability to have a bowel movement Follow Up Care Please Follow Up With: Amy Genao MD When: The office will call her to make follow up arrangements. Test Results: Test results from this visit will be discussed in further detail at your follow-up appointment, if applicable. Discharge Plan Admission Attending Provider: Amy Genao Primary Care Provider: Rufina Bellamy Instructions Print Language: Citizen Of [place] Discharge Orders/Prescriptions Prescriptions: New oxycodone-acetaminophen [Percocet] 5-325 mg tablet 1 tab PO Q8H PRN (Reason: pain) 3 Days Qty: 10 0RF cephalexin 500 mg capsule 500 mg PO Q12 3 Days Qty: 6 0RF phenazopyridine [Pyridium] 200 mg tablet 200 mg PO TID PRN PRN (Reason: Bladder Spasms) 7 Days Qty: 30 0RF Continued omega-3 fatty acids [Fish Oil Concentrate] 1,000 mg capsule 1,000 mg PO DAILY Patient Comments: STOPPED FOR SURGERY multivitamin Tablet 1 tab PO DAILY Probiotic 3 billion cell Capsule 3,000 mmu cells PO DAILY ondansetron 8 mg tablet,disintegrating 8 mg PO Q8H PRN (Reason: nausea and vomiting) Qty: 15 0RF oxycodone-acetaminophen 5-325 mg tablet 0.5 - 1 tab PO Q6H PRN PRN (Reason: Pain) 3 Days Qty: 10 0RF Referrals / Follow Up: Rufina Bellamy DO [Primary Care Provider] - Disposition Disposition (needs filled in before D/C Order can be placed): Home, Self Care
--- NOTE | 2024-03-20 14:59 | PCM.OPRPT ---
Report of Operation Date of Procedure: 03/20/24 Pre-Operative Diagnosis: left renal stone Post-Operative Diagnosis: same Surgery/Procedure Performed:: left renal extracorporal shockwave lithotripsy Surgeon: Amy Genao Type of Anesthesia: General Specimen's removed: None Description of Procedure: The patient is a 68-year-old female with a large left renal calculus who presents for shockwave lithotripsy. Informed consent was obtained. She was taken to the operating room and placed on the lithotripsy table. Anesthesia monitored the head, neck, airway, IV access and vital signs throughout the case. Once anesthesia was appropriate ministered, she was aligned with the lithotripter. The stone was easily identified. 3000 shocks were applied to the stone which appeared to be well fragmented at the conclusion of the case. She was then awakened and taken to the recovery room in good condition. There were no complications during this procedure. Grafts/Implants Used: none Complications none Admit VTE Documentation VTE Present on Admission: Yes VTE Mechan Device Prophylaxis: SCD's VTE Pharm Prophylaxis ordered?: No Reason prophylaxis not ordered:: Treatment Not Indicated
--- NOTE | 2024-03-20 15:20 | PCM.POST.ANE ---
Anesthesia: Postop Eval I Current Vital Signs Temperature: 98.2 F Pulse Rate: 74 Blood Pressure: 123/65 Respiratory Rate: 14 Pulse Ox: 95 Oxygen Delivery Method: Room Air Assessment Airway patent: Yes Spontaneous unlabored respirations: Yes Mental status: Awake and Calm nausea: No Vomiting: No Anesthesia Complication: No Fluid Hydration Crystalloid volume administer (ml): 300 Total IV fluid infused: 300 Progress Note Anesthesia document: Postop Eval 1 completed: Yes
--- NOTE | 2024-03-20 16:11 | POSTOPAN2_ITS ---
Anesthesia Postop Eval I Sum Postop Eval Completion status Anesthesia document: Postop Eval 1 completed: Yes Anesthesia Postop Eval I Summary Anesthesia Postop Eval I Summary: Anesthesia Postop Eval I: Assessment Summary Airway patent Yes 03/20/24 15:25 BANKRUPTCY [email or web address].[email or web address] Spontaneous unlabored Yes 03/20/24 15:25 BANKRUPTCY ASSISTANT.GDOTT respirations Mental status Awake,Calm 03/20/24 15:25 BANKRUPTCY ASSISTANT.GDOTT nausea No 03/20/24 15:25 BANKRUPTCY ASSISTANT.GDOTT Vomiting No 03/20/24 15:25 BANKRUPTCY ASSISTANT.GDOTT Anesthesia Postop Eval I: Fluid Summary Crystalloid volume administer 300 03/20/24 15:25 BANKRUPTCY ASSISTANT.GDOTT (ml) Colloids volume administered ( ml) Blood Product volume administered (ml) Total IV fluid infused 300 03/20/24 15:25 BANKRUPTCY ASSISTANT.GDOTT Anesthesia Postop Eval I: Summary Notes Anesthesia Complication No 03/20/24 15:25 BANKRUPTCY ASSISTANT.GDOTT Anesthesia Complication Comment: Post-operative progress note Anesthesia: Postop Eval II Evaluation Mental status: Awake Pain Level: 0 nausea: No Vomiting: No
--- NOTE | 2024-03-20 16:11 | PCM.POSTANE2 ---
Anesthesia Postop Eval I Sum Postop Eval Completion status Anesthesia document: Postop Eval 1 completed: Yes Anesthesia Postop Eval I Summary Anesthesia Postop Eval I Summary: Anesthesia Postop Eval I: Assessment Summary Airway patent Yes 03/20/24 15:25 MOTOR AND CONTROLS TESTER.[email or web address] Spontaneous unlabored Yes 03/20/24 15:25 MOTOR AND CONTROLS TESTER.GDOTT respirations Mental status Awake,Calm 03/20/24 15:25 MOTOR AND CONTROLS TESTER.GDOTT nausea No 03/20/24 15:25 MOTOR AND CONTROLS TESTER.GDOTT Vomiting No 03/20/24 15:25 MOTOR AND CONTROLS TESTER.GDOTT Anesthesia Postop Eval I: Fluid Summary Crystalloid volume administer 300 03/20/24 15:25 MOTOR AND CONTROLS TESTER.GDOTT (ml) Colloids volume administered ( ml) Blood Product volume administered (ml) Total IV fluid infused 300 03/20/24 15:25 MOTOR AND CONTROLS TESTER.GDOTT Anesthesia Postop Eval I: Summary Notes Anesthesia Complication No 03/20/24 15:25 MOTOR AND CONTROLS TESTER.GDOTT Anesthesia Complication Comment: Post-operative progress note Anesthesia: Postop Eval II Evaluation Mental status: Awake Pain Level: 0 nausea: No Vomiting: No
--- NOTE | 2024-03-20 16:51 | SUR.PHASEII ---
pt walked to br with minimal assist and voided.
== END 2024-03-20 17:05 | disposition home or self-care (01) ==
LOC: SDC 12:02 → AC 12:02
PROVIDERS: PCP Family Medicine; Referring Provider Urology; Visit Provider Urology
PROC: (CPT 50590; principal; 2024-03-20 13:45)
DX: N20.0 Calculus of kidney (principal); K21.9 Gastro-esophageal reflux disease without esophagitis
CPT/HCPCS: 50590; 00873; J7120; J2405

== ENCOUNTER → 2024-04-04 | Outpatient (CLI) | payer MEDICARE, OTHER, SELFPAY ==
--- NOTE | 2024-04-04 15:14 | RAD_ITS ---
INDICATION: KUB- KIDNEY STONES EXAMINATION/TECHNIQUE: X-RAY - XR Abdomen 1 View COMPARISON: Prior study dated: 01/18/2022 FINDINGS: BOWEL GAS PATTERN: Non-obstructive. No bowel or stomach distention. FREE AIR: Not assessed on a single supine view. ORGANOMEGALY: Not seen. CALCIFICATIONS: No abnormal calcifications observed. LOWER CHEST: No acute pathology. BONES AND SOFT TISSUES: Left ureteral stent in place. Right hip arthroplasty noted. RAD/Abdomen Single View IMPRESSION: No suspicious calcifications. Left ureteral stent in place. Electronically Signed: Brodie Khanna MD at 1:53 EDT ,
== END | disposition home or self-care (01) ==
LOC: MTRAD 15:10
PROVIDERS: PCP Family Medicine; Referring Provider Urology; Visit Provider Urology
DX: N20.0 Calculus of kidney (principal)
CPT/HCPCS: 74018

== ENCOUNTER → 2024-05-23 | Outpatient (CLI) | payer MEDICARE, OTHER, SELFPAY ==
--- NOTE | 2024-05-23 14:55 | RAD_ITS ---
STUDY: XR Abdomen 1 View 05/23/2024 3:08 PM REASON FOR EXAM: Female, 69 years old. ABDOMINAL PAIN KUB- KIDNEY STONES TECHNIQUE: XR Abdomen 1 View COMPARISON: None FINDINGS: Normal visualized lung bases. There is a moderate amount of colonic fecal material. There is no demonstrated free abdominal air. The visualized liver, spleen and kidneys are grossly normal in size and morphology. Normal soft tissue structures. There are diffuse degenerative changes of the visualized lumbar spine. Total right hip arthroplasty. RAD/Abdomen Single View IMPRESSION: Constipation. Electronically Signed: Jose Luis Stallworth MD at 19:33 EDT ,
== END | disposition home or self-care (01) ==
LOC: MTRAD 14:53
PROVIDERS: PCP Family Medicine; Referring Provider Urology; Visit Provider Urology
DX: N20.0 Calculus of kidney (principal)
CPT/HCPCS: 74018

== ENCOUNTER → 2025-02-05 | Outpatient (CLI) | payer MEDICARE, OTHER, SELFPAY ==
--- NOTE | 2025-02-05 07:37 | BI_ITS ---
EXAM: SCRN MAMM (CAD)W/ROMULO BILAT DATE: 02/05/2025 CLINICAL HISTORY: F, Age 69 y/o , SCREENING Personal history of breast cancer. History of prior right lumpectomy with radiation therapy. Sister with breast cancer. Mother with breast cancer. Grandmother with breast cancer. TECHNIQUE: SCRN MAMM (CAD)W/ROMULO BILAT COMPARISON: Prior exam(s) dated February 04, 2024.. FINDINGS: TISSUE DENSITY: The breasts are heterogeneously dense, which may obscure small masses. Bilateral Breast Mammographic Findings: Once again, the patient is status post lumpectomy in the deep central medial aspect of the right breast with resultant dystrophic calcification at the operative site and deformity of the breast with skin thickening. This is unchanged. No suspicious masses, areas of developing architectural distortion, or suspicious calcifications. There has been no significant interval change. BI/SCRN MAMM (CAD)W/ROMULO BILAT IMPRESSION: Stable examination. OVERALL FINAL ASSESSMENT BI-RADS 2: BENIGN RECOMMEND ANNUAL MAMMOGRAPHIC SCREENING. RECOMMENDATION: Routine annual follow-up in 1 Year A letter with findings and recommendations will be mailed to the patient. Reading Location: [place] [id number]
--- OUTSIDE RECORDS SUMMARY | 2025-02-05 07:57 | XMS RPT_ITS | CCD ---
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 Sukumar Green Attending Provider [phone] Mia, Dr. Almaraz Primary Care Provider Dr. Rufina Bellamy Referring Provider [phone] Oziel Gomez Attending Provider Amy Genao Referring Unavailable Wyneski, Amy Attending Unavailable Malys, Rufina Primary Care Unavailable Malys, Rufina Attending Unavailable Malys, Rufina Primary Care Unavailable Malys, Rufina Primary Care Unavailable Malys, Rufina Attending Unavailable Malys, Rufina Referring Unavailable Malys, Rufina Primary Care Unavailable Malys, Rufina Attending Unavailable Malys, Rufina Referring Unavailable Malys, Rufina Primary Care Unavailable Wyneski, Amy Attending Unavailable Wyneski, Amy Referring Unavailable Wyneski, Amy Admitting Unavailable Kotsonis, Shekhar F Consulting Unavailable Wyneski, Amy Attending Unavailable Wyneski, Amy Referring Unavailable Malys, Rufina Primary Care Unavailable Wyneski, Amy Attending Unavailable Wyneski, Amy Referring Unavailable Malys, Rufina Primary Care Unavailable Malys, Rufina Primary Care Unavailable BradleykyJohnny Consulting Unavailable Johnny Linares Attending Unavailable Wyneski, Amy Referring Unavailable Wyneski, Amy Admitting Unavailable Wyneski, Amy Consulting Unavailable Kotsonis, Shekhar F Consulting Unavailable Kotsonis, Shekhar F Attending Unavailable Malys, Rufina Primary Care Unavailable Meet Somers Attending Unavailable Allergies Allergy Classification Reported Allergen(s) Allergy Type Date of Onset Reaction(s) Facility (7 sources) chlorproMAZINE Drug Allergy 1 Anaphylaxis [facility] (7 sources) Codeine Drug Allergy 1 Other [facility] (7 sources) Niacin Drug Allergy 1 Hives [facility] (7 sources) Prochlorperazine Drug Allergy 1 Unknown [facility] (8 sources) Prochlorperazine; Translations: [prochlorperazine maleate] Drug Allergy 1 Unknown [facility] (8 sources) Promethazine; Translations: [promethazine HCl] Drug Allergy 1 Unknown [facility] (8 sources) trimethobenzamide; Translations: [trimethobenzamide HCl] Drug Allergy 1 Unknown [facility] (8 sources) prochlorperazine edisylate; Translations: [prochlorperazine edisylate] Allergy to substance 1 Unknown [facility] (1 source) chlorproMAZINE Drug Allergy 4 [facility] Repository (1 source) Codeine Drug Allergy 4 [facility] Rep[facility] (1 source) Niacin Drug Allergy 4 [facility] Rep[facility] (1 source) Prochlorperazine Drug Allergy 4 [facility] Repository Medications Current Medications Medication Drug Class(es) Dates Sig (Normalized) Sig (Original) acetaminophen 500 mg oral tablet (7 sources) Start: 01-19-2021 take 1000 mg by mouth every eight hours Acetaminophen Active 1000 MG PO Q8H 100 January 19, 2021 12:00am cephalexin 500 mg oral capsule (8 sources) Cephalosporin Antibacterial Start: 02-17-2022 take 500 mg by mouth once Cephalexin Active 500 MG PO ONCE February 17, 2022 12:00am take Within 1 hour of dental procedure Start: 02-09-2022 take 4 capsules by m outh every hour Cephalexin Active 500 MG PO ONCE February 09, 2022 12:00am Take 4 capsules one hour prior to dental work. Lactobacillus Combination No.4 (Probiotic) 3 billion cell Capsule (7 sources) Start: 01-04-2021 take 3 capsules by mouth once daily Lactobacillus Combination No.4 (Probiotic) 3 billion cell Capsule Active 3000 MMU CELLS PO DAILY January 04, 2021 11:12am Start: 01-04-2021 take 3 capsules by m outh once daily Lactobacillus Combination No.4 (Probiotic) 3 billion cell Capsule Active 3000 MMU CELLS PO DAILY January 04, 2021 12:00am Multivitamin preparation (7 sources) Start: 01-04-2021 take 1 tablet by mouth once daily Multivitamin Active 1 TABLET PO DAILY January 04, 2021 11:12am Start: 01-04-2021 take 1 tablet by sonali once daily Multivitamin Active 1 TABLET PO DAILY January 04, 2021 12:00am Furlong-3 Fatty Acids (Fish Oil Concentrate) 1,000 mg capsule (7 sources) Start: 12-10-2020 take 1 capsule by mouth once daily Furlong-3 Fatty Acids (Fish Oil Concentrate) 1,000 mg capsule Active 1000 MG PO DAILY December 10, 2020 9:36am Start: 12-10-2020 take 1 capsule by [facility] once daily Furlong-3 Fatty Acids (Fish Oil Concentrate) 1,000 mg capsule Active 1000 MG PO DAILY December 10, 2020 12:00am Completed/Discontinued Medications Medication Drug Class(es) Dates Sig (Normalized) Sig (Original) apixaban 2.5 mg oral tablet (7 sources) Factor Xa Inhibitor Start: 01-19-2021 End: 03-02-2021 take 1 tablet by mouth twice daily Apixaban (Eliquis) 2.5 mg Tablet Discontinued 2.5 MG PO TWICE A DAY 42 January 19, 2021 12:00am March 02, 2021 10:08am meloxicam 7.5 mg oral tablet (7 sources) Nonsteroidal Anti-inflammatory Drug Start: 11-15-2020 End: 12-10-2020 take 7.5 mg by mouth once daily, then take 15 mg by mouth once daily Meloxicam Discontinued 7.5 MG PO DAILY 35 November 15, 2020 12:00am December 10, 2020 8:34am Do not take in conjunction with other NSAIDs. Take 7.5mg each day for the 1st week. For the following 2 weeks take 15mg per day methylPREDNISolone acetate 40 mg/ml injectable suspension (2 sources) Corticosteroid Start: 11-15-2020 End: 11-15-2020 Depo-Medrol (methylprednisol one acetate) 40 mg/mL suspension for injection Discontinued 40 MG INTRAARTIC ONCE 1 November 15, 2020 9:02am November 15, 2020 10:42am oxyCODONE hydrochloride 5 mg oral tablet (14 sources) Opioid Agonist Start: 01-19-2021 End: 01-24-2021 take 5-10 mg by mouth every six hours Oxycodone Discontinued 5 - 10 MG PO EVERY 6 HOURS 10 January 19, 2021 January 24, 2021 12:01am Start: 01-19-2021 End: 03-02-2021 take 5-10 mg by mouth every four hours as needed Oxycodone Discontinued 5 - 10 MG PO EVERY 4 HOURS NEEDED 10 January 19, 2021 March 02, 2021 10:09am Problems Active Problems Problem Classification Problem Date Documented Date Episodic/Chronic Disorders of lipid metabolism (2 sources) Hyperlipidemia, unspecified; Translations: [Hyperlipidemia, unspecified] Onset: 02-14-2024 Chronic Osteoarthritis (7 sources) Osteoarthritis of right hip joint; Translations: [Unilateral primary osteoarthritis, right hip] 01-19-2021 Chronic Other aftercare (7 sources) Follow-up status; Translations: [Encounter for other orthopedic aftercare] 03-02-2021 Episodic Other aftercare (1 source) Encounter for therapeutic drug level monitoring; Translations: [Encounter for therapeutic drug level monitoring] Onset: 10-09-2024 Episodic Other connective tissue disease (5 sources) History of total hip arthroplasty; Translations: [Presence of right artificial hip joint] 01-18-2022 Chronic Other connective tissue disease (1 source) Presence of right artificial hip joint; Translations: [Hip joint replacement] Chronic Other connective tissue disease (4 sources) Artificial knee joint present; Translations: [Presence of unspecified artificial knee joint] 02-09-2022 Chronic Other nervous system disorders (7 sources) Acute postoperative pain; Translations: [Other acute postprocedural pain] 01-19-2021 Episodic Other non-traumatic joint disorders (7 sources) Pain in right knee; Translations: [Right knee pain] 12-10-2020 Episodic Past or Other Problems Problem Classification Problem Date Documented Da te Episodic/Chronic Abdominal pain (1 source) Unspecified abdominal pain; Translations: [Unspecified abdominal pain] Onset: 03-19-2024 Episodic Calculus of urinary tract (3 sources) Calculus of kidney; Translations: [Calculus of ureter] Onset: 03-06-2024 Episodic Genitourinary symptoms and ill-defined conditions (1 source) Obstructive and reflux uropathy, unspecified; Translations: [Obstructive and reflux uropathy, unspecified] Onset: 03-06-2024 Episodic Other screening for suspected conditions (not mental disorders or infectious disease) (1 source) Encounter for screening mammogram for malignant neoplasm of breast; Translations: [Encounter for screening mammogram for malignant neoplasm of breast] Onset: 02-14-2024 Episodic Urinary tract infections (1 source) Urinary tract infection, site not specified; Translations: [Urinary tract infection, site not specified] Onset: 03-06-2024 Episodic Results Test Name Value Interpretation Reference Range Facility Abdomen Single Viewon 2023 Abdomen Single View [facility] Imaging Services [address], [place] [address] Abdomen Single View MR#: [id number] Acct: [id number] Name: SUDHEER ANTOINE Rep #: [id number] : 1955 F 69 From: Jose Luis Becerra PCP: Dr. Rufina Bellamy, DO Status: REG CLI Study: Abdomen Single View Date of Exam: 05/23/24 Exam# [id number] Ordering Dr: [place] [id number] STUDY: XR Abdomen 1 View 05/23/2024 3:08 PM REASON FOR EXAM: Female, 69 years old. ABDOMINAL PAIN KUB- KIDNEY STONES TECHNIQUE: XR Abdomen 1 View COMPARISON: None FINDINGS: Normal visualized lung bases. There is a moderate amount of colonic fecal material. There is no demonstrated free abdominal air. The visualized liver, spleen and kidneys are grossly normal in size and morphology. Normal soft tissue structures. There are diffuse degenerative changes of the visualized lumbar spine. Total right hip arthroplasty. RAD/Abdomen Single View IMPRESSION: Constipation. Electronically Signed: Jose Luis Stallworth MD at 19:33 EDT , CC: Dr. Amy Genao MD; Dr. Rufina Bellamy DO Dessert Cup Machine Feeder: Signed Normal [facility] Abdomen Single Viewon 2023 Abdomen Single View [facility] Imaging Services [address] [place] [address] Abdomen Single View MR#: [id number] Acct: [id number] Name: SUDHEER ANTOINE Rep #: [id number] : 1955 F 68 From: Brodie brown MD PCP: Dr. Rufina Bellamy DO Status: REG CLI Study: Abdomen Single View Date of Exam: 04/04/24 Exam# [id number] Ordering Dr: [place] [id number] INDICATION: KUB- KIDNEY STONES EXAMINATION/TECHNIQUE: X-RAY - XR Abdomen 1 View COMPARISON: Prior study dated: 01/18/2022 FINDINGS: BOWEL GAS PATTERN: Non-obstructive. No bowel or stomach distention. FREE AIR: Not assessed on a single supine view. ORGANOMEGALY: Not seen. CALCIFICATIONS: No abnormal calcifications observed. LOWER CHEST: No acute pathology. BONES AND SOFT TISSUES: Left ureteral stent in place. Right hip arthroplasty noted. RAD/Abdomen Single View IMPRESSION: No suspicious calcifications. Left ureteral stent in place. Electronically Signed: Brodie Khanna MD at 1:53 EDT , CC: Dr. Amy Genao MD; Dr. Rufina Bellamy DO Dessert Cup Machine Feeder: Signed Normal [facility] Discharge Instructionon 02-28 Discharge Instruction [facility] Medical Records Department [address] [place] [address] Instructions for Home/Discharge Instructions 03/20/24 1455 MR#: [id number] Acct: [id number] Name: SUDHEER ANTOINE Rep #: [id number] : 1955 68 From: Amy Genao MD PCP: Dr. Rufina Bellamy DO Status:REG [facility] Discharge Instructions Diet Discharge Diet: No restrictions Activity Discharge Activity: Return to Normal Activity Dressing / Incision Call your doctor if you observe: Fever of 101 or Higher, Inability to urinate and Inability to have a bowel movement Follow Up Care Please Follow Up With: Amy Genao MD When: The office will call her to make follow up arrangements. Test Results: Test results from this visit will be discussed in further detail at your follow-up appointment, if applicable. Discharge Plan Admission Attending Provider: Amy Genao Primary Care Provider: Rufina Bellamy Instructions Print Language: Slovenian Discharge Orders/Prescriptions Prescriptions: New oxycodone-acetaminophen [Percocet] 5-325 mg tablet 1 tab PO Q8H PRN (Reason: pain) 3 Days Qty: 10 0RF cephalexin 500 mg capsule 500 mg PO Q12 3 Days Qty: 6 0RF phenazopyridine [Pyridium] 200 mg tablet 200 mg PO TID PRN PRN (Reason: Bladder Spasms) 7 Days Qty: 30 0RF Continued omega-3 fatty acids [Fish Oil Concentrate] 1,000 mg capsule 1,000 mg PO DAILY Patient Comments: STOPPED FOR SURGERY multivitamin Tablet 1 tab PO DAILY Probiotic 3 billion cell Capsule 3,000 mmu cells PO DAILY ondansetron 8 mg tablet,disintegrating 8 mg PO Q8H PRN (Reason: nausea and vomiting) Qty: 15 0RF oxycodone-acetaminophen 5-325 mg tablet 0.5 - 1 tab PO Q6H PRN PRN (Reason: Pain) 3 Days Qty: 10 0RF Referrals / Follow Up: Rufina Bellamy DO [Primary Care Provider] - Disposition Disposition (needs filled in before D/C Order can be placed): Home, Self Care 03/20/24 6749 Amy Genao MD CC: Dr. Rufina Bellamy DO Signed [facility] MR/POSTOP.ANEon 03-20-2024 MR/POSTOP.[facility] Medical Records Department [address] [place] [address] Anesthesia Postop Eval I 03/20/24 1520 MR#: [id number] Acct: [id number] Name: ARASHSUDHEERJOSEFINA SHAFER Rep #: [id number] : 1955 68 From: Cathy Meza PCP: Dr. Rufina Bellamy DO Status:REG SDC Y Race: C Location: [facility] Anesthesia: Postop Eval I Current Vital Signs Temperature: 98.2 F Pulse Rate: 74 Blood Pressure: 123/65 Respiratory Rate: 14 Pulse Ox: 95 Oxygen Delivery Method: Room Air Assessment Airway patent: Yes Spontaneous unlabored respirations: Yes Mental status: Awake and Calm nausea: No Vomiting: No Anesthesia Complication: No Fluid Hydration Crystalloid volume administer (ml): 300 Total IV fluid infused: 300 Progress Note Anesthesia document: Postop Eval 1 completed: Yes 03/20/24 152 Date Cathy Rehman Signature: Date CC: Signed [facility] MR/TWFOVVSS1pv 03-20-2024 MR/POSTOPAN2 [facility] Medical Records Department [address] [place] [address] Anesthesia Postop Eval II 03/20/24 1611 MR#: [id number] Acct: [id number] Name: SUDHEER ANTOINE Rep #: [id number] : 1955 68 From: Rex Marinelli MD PCP: Dr. Rufina Bellamy, DO Status:REG SDC Y Race: C Location: [facility] Anesthesia Postop Eval I Sum Postop Eval Completion status Anesthesia document: Postop Eval 1 completed: Yes Anesthesia Postop Eval I Summary Anesthesia Postop Eval I Summary: Anesthesia Postop Eval I: Assessment Summary Airway patent Yes 03/20/24 15:25 CARRY OUT CLERK AND SHELF STOCKER.GDOTT Spontaneous unlabored Yes 03/20/24 15:25 CARRY OUT CLERK AND SHELF STOCKER.GDOTT respirations Mental status Awake,Calm 03/20/24 15:25 CARRY OUT CLERK AND SHELF STOCKER.GDOTT nausea No 03/20/24 15:25 CARRY OUT CLERK AND SHELF STOCKER.GDOTT Vomiting No 03/20/24 15:25 CARRY OUT CLERK AND SHELF STOCKER.GDOTT Anesthesia Postop Eval I: Fluid Summary Crystalloid volume administer 300 03/20/24 15:25 CARRY OUT CLERK AND SHELF STOCKER.GDOTT (ml) Colloids volume administered ( ml) Blood Product volume administered (ml) Total IV fluid infused 300 03/20/24 15:25 CARRY OUT CLERK AND SHELF STOCKER.GDOTT Anesthesia Postop Eval I: Summary Notes Anesthesia Complication No 03/20/24 15:25 CARRY OUT CLERK AND SHELF STOCKER.GDOTT Anesthesia Complication Comment: Post-operative progress note Anesthesia: Postop Eval II Evaluation Mental status: Awake Pain Level: 0 nausea: No Vomiting: No 03/20/24 1611 Date Rex Marinelli MD Cosign Signature: Date CC: Signed Normal [facility] Operative Reporton 4 Operative Report [facility] Medical Records Department [address] [place] [address] Operative Report 03/20/24 1459 MR#: [id number] Acct: [id number] Name: SUDHEER ANTOINE Rep #: [id number] : 1955 68 From: Amy Genao MD PCP: Dr. Rufina Bellamy, DO Status:REG SDC Location: [place] [address] Report of Operation Date of Procedure: 03/20/24 Pre-Operative Diagnosis: left renal stone Post-Operative Diagnosis: same Surgery/Procedure Performed:: left renal extracorporal shockwave lithotripsy Surgeon: Amy Genao Type of Anesthesia: General Specimen's removed: None Description of Procedure: The patient is a 68-year-old female with a large left renal calculus who presents for shockwave lithotripsy. Informed consent was obtained. She was taken to the operating room and placed on the lithotripsy table. Anesthesia monitored the head, neck, airway, IV access and vital signs throughout the case. Once anesthesia was appropriate ministered, she was aligned with the lithotripter. The stone was easily identified. 3000 shocks were applied to the stone which appeared to be well fragmented at the conclusion of the case. She was then awakened and taken to the recovery room in good condition. There were no complications during this procedure. Grafts/Implants Used: none Complications none Admit VTE Documentation VTE Present on Admission: Yes VTE Mechan Device Prophylaxis: SCD's VTE Pharm Prophylaxis ordered?: No Reason prophylaxis not ordered:: Treatment Not Indicated 03/20/24 1506 Cosigner Signature (if applicable): CC: Dr. Amy Genao MD; Dr. Rufina Bellamy DO Signed Normal [facility] Culture, Blood (WB)on 2023 CUB No growth in 5 days. Normal [facility] Comment on above: Performed By: #### M 200.1000 #### [facility] Laboratory [address] [place], [address] Urine Cultureon 03-08-2024 [facility] Comments: COLLECTED IN OR--URINE CULTURE Escherichia coli [place] Count <1000 Escherichia coli: REACTION Ampicillin Islt YANA 4 S Ampicillin+Sulbac Islt YANA <=2 S ceFAZolin Islt YANA <=4 S Cefepime Islt YANA <=0.12 S cefTRIAXone Islt YANA <=0.25 S Ciprofloxacin Islt YANA <=0.25 S Ertapenem Islt YANA <=0.12 S B-Lactamase Extended Susc Islt NEG Gentamicin Islt YANA <=1 S Imipenem Islt YANA <=0.25 S levoFLOXacin Islt YANA <=0.12 S Pip+Tazo Islt YANA <=4 S Tobramycin Islt YANA <=1 S TMP SMX Islt YANA <=20 S Normal [facility] Comment on above: Performed By: #### M 100.2200 #### [facility] [address] [place], [address] Basic Metabolic Profile (BMP )on 03-06-2024 BUN/CRE 26.5 RATIO High 10-20 [facility] Comment on above: Performed By: #### L 500.2500, L100.0500 #### [facility] [address] [place], [address] CA,Total 8.0 mg/dL Low 8.5-10.1 [facility] Comment on above: Performed By: #### L 500.2500, L100.0500 #### [facility] [address] [place], [address] Chloride [Moles/Vol] 107 mmol/L Normal 98-107 [facility] Comment on above: Performed By: #### L 500.2500, L100.0500 #### [facility] [address] [place], [address] CO2 [Moles/Vol] 25.0 mmol/L Normal 21.0-32.0 [facility] Comment on above: Performed By: #### L 500.2500, L100.0500 #### [facility] [address] [place], [address] Creatinine [Mass/Vol] 1.02 mg/dL Normal 0.55-1.02 [facility] Comment on above: Result Comment: The validity of the calculated GFR GFRAA in patients over 70 years has not been determined. Clinical correlation is essential. Performed By: #### L 500.2500, L100.0500 #### [facility] [address] [place], [address] ECRCL 54.11 ml/min Normal [facility] Comment on above: Performed By: #### L 500.2500, L100.0500 #### [facility] [address] [place], [address] EST GFR - AA 69 mL/min Normal >60 [facility] Comment on above: Result Comment: Afri can Bahamian GFR Calc Performed By: #### L 500.2500, L100.0500 #### [facility] [address] [place], [address] GAP 5 Normal 5-15 [facility] Comment on above: Performed By: #### L 500.2500, L100.0500 #### [facility] [address] [place], [address] GFR/1.73 sq M.predicted among non-blacks MDRD (S/P/Bld) [Vol rate/Area] 57 mL/min/{1.73_m2} Low >60 [facility] Comment on above: Result Comment: Non- GFR Calc Performed By: #### L 500.2500, L100.0500 #### [facility] [address] [place], [address] Glucose [Mass/Vol] 126 mg/dL High 74-106 [facility] Comment on above: Result Comment: Fast ing Glucose result greater than or equal to 126 mg/dL suggests DIABETES MELLITUS per A.D.A. criteria. Performed By: #### L 500.2500, L100.0500 #### [facility] [address] [place], [address] Potassium [Moles/Vol] 3.6 mmol/L Normal 3.5-5.1 [facility] Comment on above: Performed By: #### L 500.2500, L100.0500 #### [facility] [address] [place], [address] Sodium [Moles/Vol] 137 mmol/L Normal 136-145 [facility] Comment on above: Performed By: #### L 500.2500, L100.0500 #### [facility] [address] [place], [address] Urea nitrogen [Mass/Vol] 27 mg/dL High 7-18 [facility] Comment on above: Performed By: #### L 500.2500, L100.0500 #### [facility] [address] [place], [address] CBC-Complete Blood Cnt No Di ffon 03-06-2024 Erythrocyte distribution width (RBC) [Ratio] 13.6 % Normal 11.6-14.6 [facility] Comment on above: Performed By: #### L 500.2500, L100.0500 #### [facility] [address] [place], [address] Hematocrit (Bld) [Volume fraction] 33.0 % Low 37-47 [facility] Comment on above: Performed By: #### L 500.2500, L100.0500 #### [facility] [address] [place], [address] Hemoglobin (Bld) [Mass/Vol] 10.5 g/dL Low 12.0-15.0 [facility] Comment on above: Performed By: #### L 500.2500, L100.0500 #### [facility] [address] [place], [address] MCH (RBC) [Entitic mass] 30.2 pg Normal 27.0-32.0 [facility] Comment on above: Performed By: #### L 500.2500, L100.0500 #### [facility] [address] [place], [address] MCHC (RBC) [Mass/Vol] 31.8 g/dL Low 32-36 [facility] Comment on above: Performed By: #### L 500.2500, L100.0500 #### [facility] [address] [place], [address] MCV (RBC) [Entitic vol] 94.8 fL Normal 81-99 [facility] Comment on above: Performed By: #### L 500.2500, L100.0500 #### [facility] [address] [place], [address] Platelet mean volume (Bld) [Entitic vol] 11.4 fL Normal 6.2-12.0 [facility] Comment on above: Performed By: #### L 500.2500, L100.0500 #### [facility] [address] [place], [address] Platelets (Bld) [#/Vol] 141 10*3/uL Low 150-450 [facility] Comment on above: Performed By: #### L 500.2500, L100.0500 #### [facility] [address] [place], [address] RBC (Bld) [#/Vol] 3.48 10*6/uL Low 4.2-5.4 [facility] Comment on above: Performed By: #### L 500.2500, L100.0500 #### [facility] [address] [place], [address] RDW SD 47.5 fl High 35.1-43.9 [facility] Comment on above: Performed By: #### L 500.2500, L100.0500 #### [facility] [address] [place], [address] WBC (Bld) [#/Vol] 8.4 10*3/uL Normal 4.4-11.0 [facility] Comment on above: Performed By: #### L 500.2500, L100.0500 #### [facility] [address] [place], [address] Discharge Instructionon 08-0 Discharge Instruction [facility] Medical Records Department [address] [place] [address] Instructions for Home/Discharge Instructions 03/06/24 1140 MR#: [id number] Acct: [id number] Name: SUDHEER ANTOINE Rep #: [id number] : 1955 68 From: Amy Genao MD PCP: Dr. Rufina Bellamy DO Status:ADM IN Discharge Instructions Diet Discharge Diet: No restrictions Activity Discharge Activity: Return to Normal Activity Dressing / Incision Call your doctor if you observe: Fever of 101 or Higher, Inability to urinate and Inability to have a bowel movement Follow Up Care Please Follow Up With: Amy Genao MD When: The office will call her to make follow up arrangements. Please complete cipro antibiotics she has, 500mg BID for 7 days. thank you. Test Results: Test results from this visit will be discussed in further detail at your follow-up appointment, if applicable. Discharge Plan Admission Admit Date/Time: 03/05/24 17:07 Attending Provider: Amy Genao Primary Care Provider: Rufina Bellamy Consulting Providers: Shekhar Mejia Discharge Orders/Prescriptions Prescriptions: Continued omega-3 fatty acids [Fish Oil Concentrate] 1,000 mg capsule 1,000 mg PO DAILY Patient Comments: STOPPED FOR SURGERY multivitamin Tablet 1 tab PO DAILY Probiotic 3 billion cell Capsule 3,000 mmu cells PO DAILY ciprofloxacin HCl 500 mg tablet 500 mg PO BID Qty: 14 0RF ondansetron 8 mg tablet,disintegrating 8 mg PO Q8H PRN (Reason: nausea and vomiting) Qty: 15 0RF oxycodone-acetaminophen 5-325 mg tablet 0.5 - 1 tab PO Q6H PRN PRN (Reason: Pain) 3 Days Qty: 10 0RF Referrals / Follow Up: Rufina Bellamy DO [Primary Care Provider] - Disposition Disposition (needs filled in before D/C Order can be placed): Home, Self Care 03/06/24 1326 Amy Genao MD CC: Dr. Rufina Bellamy DO; Dr. Shekhar Mejia MD Signed Normal [facility] Urine Cultureon 03-06-2024 [facility] RE ORDERED, UNABLE T O CHANGE INT SOURCE TO URINE If further studies are desired, please contact the Microbiology Laboratory within 48 hours. Bacteria Ur Cult Presumptive E. coli [place] Count >100,000 Presumptive E. coli: REACTION Ampicillin Islt YANA 4 S Ampicillin+Sulbac Islt YANA <=2 S ceFAZolin Islt YANA <=4 S cefTRIAXone Islt YANA <=0.25 S Ciprofloxacin Islt YANA <=0.25 S Ertapenem Islt YANA <=0.12 S B-Lactamase Extended Susc Islt NEG Gentamicin Islt YANA <=1 S Imipenem Islt YANA <=0.25 S levoFLOXacin Islt YANA <=0.12 S Nitrofurantoin Islt YANA <=16 S Tobramycin Islt YANA <=1 S TMP SMX Islt YANA <=20 S Normal [facility] Comment on above: Performed By: #### M 100.2200 ####[facility] [address] [place], [address] CBC W/Diff, Automatedon 08-0 7-2023 Absolute Lymph 0.37 X10 3/uL Low 0.83-4.51 [facility] Comment on above: Performed By: #### L 500.4050, L100.0100 ####[facility] [address] [place], [address] Absolute Neut 10.3 X10 3/uL High 2.0-7.7 [facility] Comment on above: Performed By: #### L 500.4050, L100.0100 ####[facility] [address] [place], [address] Basophils/100 WBC (Bld) 0.1 % Normal 0-1 [facility] Comment on above: Performed By: #### L 500.4050, L100.0100 ####[facility] [address] [place], [address] Eosinophils/100 WBC (Bld) 0.0 % Normal 0-5 [facility] Comment on above: Performed By: #### L 500.4050, L100.0100 ####[facility] [address] [place], [address] Erythrocyte distribution width (RBC) [Ratio] 13.6 % Normal 11.6-14.6 [facility] Comment on above: Performed By: #### L 500.4050, L100.0100 ####[facility] [address] [place], [address] Hematocrit (Bld) [Volume fraction] 35.9 % Low 37-47 [facility] Comment on above: Performed By: #### L 500.4050, L100.0100 ####[facility] [address] [place], [address] Hemoglobin (Bld) [Mass/Vol] 11.3 g/dL Low 12.0-15.0 [facility] Comment on above: Performed By: #### L 500.4050, L100.0100 ####[facility] [address] [place], [address] IG% 0.700 Normal 0.0-0.9 [facility] Comment on above: Result Comment: IG% - Immature Granulocytes (promyelocytes, myelocytes and metamyelocytes) > 1% indicates that a LEFT SHIFT is Present. Performed By: #### L 500.4050, L100.0100 ####[facility] [address] [place], [address] Lymphocytes/100 WBC (Bld) 3.3 % Low 19-41 [facility] Comment on above: Performed By: #### L 500.4050, L100.0100 ####[facility] [address] [place], [address] MCH (RBC) [Entitic mass] 30.0 pg Normal 27.0-32.0 [facility] Comment on above: Performed By: #### L 500.4050, L100.0100 ####[facility] [address] [place], [address] MCHC (RBC) [Mass/Vol] 31.5 g/dL Low 32-36 [facility] Comment on above: Performed By: #### L 500.4050, L100.0100 ####[facility] [address] [place], [address] MCV (RBC) [Entitic vol] 95.2 fL Normal 81-99 [facility] Comment on above: Performed By: #### L 500.4050, L100.0100 ####[facility] [address] [place], [address] Monocytes/100 WBC (Bld) 4.4 % Normal 0-10 [facility] Comment on above: Performed By: #### L 500.4050, L100.0100 ####[facility] [address] [place], [address] Neutrophils/100 WBC (Bld) 91.5 % High 47-70 [facility] Comment on above: Performed By: #### L 500.4050, L100.0100 ####[facility] [address] [place], [address] Nucleated RBC (Bld) [#/Vol] 0 10*3/uL Normal 0-5 [facility] Comment on above: Performed By: #### L 500.4050, L100.0100 ####[facility] [address] [place], [address] Platelet mean volume (Bld) [Entitic vol] 11.4 fL Normal 6.2-12.0 [facility] Comment on above: Performed By: #### L 500.4050, L100.0100 ####[facility] [address] [place], [address] Platelets (Bld) [#/Vol] 157 10*3/uL Normal 150-450 [facility] Comment on above: Performed By: #### L 500.4050, L100.0100 ####[facility] [address] [place], [address] RBC (Bld) [#/Vol] 3.77 10*6/uL Low 4.2-5.4 [facility] Comment on above: Performed By: #### L 500.4050, L100.0100 ####[facility] [address] [place], [address] RDW SD 47.8 fl High 35.1-43.9 [facility] Comment on above: Performed By: #### L 500.4050, L100.0100 ####[facility] [address] [place], [address] WBC (Bld) [#/Vol] 11.3 10*3/uL High 4.4-11.0 [facility] Comment on above: Performed By: #### L 500.4050, L100.0100 ####[facility] [address] [place], [address] Chest PA and Lateralon 03-05 Chest PA and Lateral [facility] Imaging Services [address] [place] [address] Chest PA and Lateral MR#: [id number] Acct: [id number] Name: SUDHEER ANTOINE Rep #: [id number] : 1955 F 68 From: Nnamdi Gonzalez MD PCP: Dr. Rufina Bellamy, DO Status: [facility] Study: Chest PA and Lateral Date of Exam: 03/05/24 Exam# [id number] Ordering Dr: [place] [id number] STUDY: X-RAY CHEST REASON FOR EXAM: Female, 68 years old. Hypoxia. TECHNIQUE: Frontal and lateral views of the chest. COMPARISON: None. FINDINGS: The lungs are clear and expanded. Atelectasis/scarring at the left base. There is no demonstrated pleural abnormality. Normal size heart. Normal mediastinum and anna. Normal visualized pulmonary arteries. Normal visualized aortic arch and descending thoracic aorta. Normal visualized thoracic spine. Normal visualized ribs, clavicles, and shoulders. Surgical clips projected over the right axilla. No abnormality of the visualized soft tissue structures of the upper abdomen. RAD/Chest PA and Lateral IMPRESSION: No active or acute cardiopulmonary disease. Electronically Signed: Nnamdi Gonzalez MD at 15:26 EDT , CC: Dr. Manpreet Isidro MD; Dr. Rufina Bellamy DO Dessert Cup Machine Feeder: Signed Normal [facility] Comprehensive Metabolic Prof ilon 03-05-2024 Albumin [Mass/Vol] 2.7 g/dL Low 3.2-5.0 [facility] Comment on above: Performed By: #### L 500.4050, L100.0100 ####[facility] [address] [place], [address] Albumin/Globulin [Mass ratio] 0.8 {ratio} Low 0.9-2.4 [facility] Comment on above: Performed By: #### L 500.4050, L100.0100 ####[facility] [address] [place], [address] ALK P 74 U/L Normal 45-117 [facility] Comment on above: Performed By: #### L 500.4050, L100.0100 ####[facility] [address] [place], [address] ALT [Catalytic activity/Vol] 26 U/L Normal 13-56 [facility] Comment on above: Performed By: #### L 500.4050, L100.0100 ####[facility] [address] [place], [address] AST [Catalytic activity/Vol] 22 U/L Normal 15-37 [facility] Comment on above: Performed By: #### L 500.4050, L100.0100 ####[facility] [address] [place], [address] Bilirubin [Mass/Vol] 0.50 mg/dL Normal 0.20-1.00 [facility] Comment on above: Result Comment: For patients on eltrombopag therapy, use of Dimension [place] TBIL is not recommended. Performed By: #### L 500.4050, L100.0100 ####[facility] [address] [place], [address] BUN/CRE 24.0 RATIO High 10-20 [facility] Comment on above: Performed By: #### L 500.4050, L100.0100 ####[facility] [address] [place], [address] CA,Total 8.6 mg/dL Normal 8.5-10.1 [facility] Comment on above: Performed By: #### L 500.4050, L100.0100 ####[facility] [address] [place], [address] Chloride [Moles/Vol] 106 mmol/L Normal 98-107 [facility] Comment on above: Performed By: #### L 500.4050, L100.0100 ####[facility] [address] [place], [address] CO2 [Moles/Vol] 26.0 mmol/L Normal 21.0-32.0 [facility] Comment on above: Performed By: #### L 500.4050, L100.0100 ####[facility] [address] [place], [address] Creatinine [Mass/Vol] 1.46 mg/dL High 0.55-1.02 [facility] Comment on above: Result Comment: The validity of the calculated GFR GFRAA in patients over 70 years has not been determined. Clinical correlation is essential. Performed By: #### L 500.4050, L100.0100 ####[facility] [address] [place], [address] ECRCL 37.80 ml/min Normal [facility] Comment on above: Performed By: #### L 500.4050, L100.0100 ####[facility] [address] [place], [address] EST GFR - AA 46 mL/min Low >60 [facility] Comment on above: Result Comment: Afri can Bahamian GFR Calc Performed By: #### L 500.4050, L100.0100 ####[facility] [address] [place], [address] GAP 7 Normal 5-15 [facility] Comment on above: Performed By: #### L 500.4050, L100.0100 ####[facility] [address] [place], [address] GFR/1.73 sq M.predicted among non-blacks MDRD (S/P/Bld) [Vol rate/Area] 38 mL/min/{1.73_m2} Low >60 [facility] Comment on above: Result Comment: Non- GFR Calc Performed By: #### L 500.4050, L100.0100 ####[facility] [address] [place], [address] Globulin (S) [Mass/Vol] 3.6 g/dL Normal 2.2-4.2 [facility] Comment on above: Performed By: #### L 500.4050, L100.0100 ####[facility] [address] [place], [address] Glucose [Mass/Vol] 121 mg/dL High 74-106 [facility] Comment on above: Result Comment: Fast ing Glucose result from 100 to 125 mg/dL suggests IMPAIRED HOMEOSTASIS per A.D.A. criteria. Performed By: #### L 500.4050, L100.0100 ####[facility] [address] [place], [address] Potassium [Moles/Vol] 3.7 mmol/L Normal 3.5-5.1 [facility] Comment on above: Performed By: #### L 500.4050, L100.0100 ####[facility] [address] [place], [address] Sodium [Moles/Vol] 139 mmol/L Normal 136-145 [facility] Comment on above: Performed By: #### L 500.4050, L100.0100 ####[facility] [address] [place], [address] T PROT 6.3 g/dL Low 6.4-8.2 [facility] Comment on above: Performed By: #### L 500.4050, L100.0100 ####[facility] [address] [place], [address] Urea nitrogen [Mass/Vol] 35 mg/dL High 7-18 [facility] Comment on above: Performed By: #### L 500.4050, L100.0100 ####[facility] [address] [place], [address] MR/POSTOP.ANEon 03-05-2024 MR/POSTOP.[facility] Medical Records Department [address] [place] [address] Anesthesia Postop Eval I 03/05/24 1655 MR#: [id number] Acct: [id number] Name: SUDHEER ANTOINE Rep #: [id number] : 1955 68 From: Manpreet Isidro MD PCP: Dr. Rufina Bellamy, DO Status:REG SD Y Race: C Location: [facility] Anesthesia: Postop Eval I Current Vital Signs Temperature: 99.3 F Pulse Rate: 76 Blood Pressure: 101/47 Respiratory Rate: 16 Pulse Ox: 99 Oxygen Delivery Method: Nasal Cannula (3 l/m oxygen) Assessment Airway patent: Yes Spontaneous unlabored respirations: Yes Mental status: Awake and Calm nausea: No Vomiting: No Anesthesia Complication: No Fluid Hydration Crystalloid volume administer (ml): 200 Total IV fluid infused: 200 Progress Note Anesthesia document: Postop Eval 1 completed: Yes 03/05/241658 Date Manpreet Isidro MD Cosigner Signature: Date CC: Signed Normal [facility] MR/[id number] 03-05-2024 [facility] Medical Records Department [address] [place] [address] Anesthesia Postop Eval II 03/05/24 1710 MR#: [id number] Acct: [id number] Name: SUDHEER ANTOINE Rep #: [id number] : 1955 68 From: Manpreet Isidro MD PCP: Dr. Rufina Bellamy, DO Status:REG SD Y Race: C Location: [facility] Anesthesia Postop Eval I Sum Postop Eval Completion status Anesthesia document: Postop Eval 1 completed: Yes Anesthesia Postop Eval I Summary Anesthesia Postop Eval I Summary: Anesthesia Postop Eval I: Assessment Summary Airway patent Yes 03/05/24 16:58 Spontaneous unlabored Yes 03/05/24 16:58 respirations Mental status Awake,Calm 03/05/24 16:58 nausea No 03/05/24 16:58 Vomiting No 03/05/24 16:58 Anesthesia Postop Eval I: Fluid Summary Crystalloid volume administer 200 03/05/24 16:58 (ml) Colloids volume administered ( ml) Blood Product volume administered (ml) Total IV fluid infused 200 03/05/24 16:58 Anesthesia Postop Eval I: Summary Notes Anesthesia Complication No 03/05/24 16:58 Anesthesia Complication Comment: Post-operative progress note Anesthesia: Postop Eval II Evaluation Mental status: Awake and Calm Pain Level: 0 nausea: No Vomiting: No Complications Anesthesia Complication: No 03/05/24 1711 Date Manpreet Isidro MD Cosigner Signature: Date CC: Signed Normal [facility] Operative Reporton 4 Operative Report [facility] Medical Records Department [address] [place] [address] Operative Report 03/05/24 171 MR#: [id number] Acct: [id number] Name: SUDHEER ANTOINE Rep #: [id number] : 1955 68 From: Amy Genao MD PCP: Dr. Rufina Bellamy DO Status:ADM IN Location: [place] [address]-1 Report of Operation Date of Procedure: 03/05/24 Pre-Operative Diagnosis: Left ureteral obstruction secondary to stone, with infection Post-Operative Diagnosis: Same Surgery/Procedure Performed:: Cystoscopy with left ureteral stent insertion Surgeon: Amy Genao Type of Anesthesia: MAC Specimen's removed: Urine for culture Description of Procedure: The patient is a 68-year-old female with an obstructing left proximal ureteral calculus approximately 1 cm in size. I saw her in the office earlier today and she was having active nausea and vomiting and uncontrolled pain. The decision was made to proceed with cystoscopy and left ureteral stent insertion and informed consent was obtained. By the time the patient arrived for intervention, she began to have fevers. She was taken to the operating room and placed on the operating room table. Anesthesia monitored the head, neck, airway, IV access and vital signs throughout the case. Once anesthesia was appropriately administered, she was placed into dorsal lithotomy position and was prepped and draped in usual sterile fashion. The cystoscope was inserted through the urethra under direct visualization into the urinary bladder. The bladder revealed no evidence of mass, erythema or abnormality. The left ureteral orifice was identified and gently intubated with a 0.035 Glidewire. The wire advanced into the renal pelvis is seen on fluoroscopy beyond the level of the stone. Urine began to flow at this point from the left ureteral orifice. A 6 Vietnamese 24 cm JJ stent was then placed over the Glidewire with good positioning in the renal pelvis as well as the urinary bladder. Purulent urine began to drain from the left kidney and a urinary culture was sent. A 16 Vietnamese Barrera catheter was inserted to straight drain and 10 cc was used to fill the balloon. She was awakened and taken to the recovery room in good condition. There were no complications during the procedure. Grafts/Implants Used: 6 Vietnamese x 24 cm JJ stent Complications None Admit VTE Documentation VTE Present on Admission: Yes VTE Mechan Device Prophylaxis: SCD's (Her IV is in the top of the left foot, only the right leg has an SCD in place.) VTE Pharm Prophylaxis ordered?: Yes 03/05/24 1720 Cosigner Signature (if applicable): CC: Dr. Amy Genao MD; Dr. uRfina Bellamy DO; Dr. Johnny Linares DO Signed Normal [facility] Abdomen/Pelvis without Conto n 03-04-2024 Abdomen/Pelvis without Cont [facility] Imaging Services [address] [place] [address] Abdomen/Pelvis without Cont MR#: [id number] Acct: [id number] Name: SUDHEER ANTOINE Rep #: [id number] : 1955 F 68 From: Jose Luis Manuel MD PCP: Dr. Rufina Malys, DO Status: REG ER Study: Abdomen/Pelvis without Cont Date of Exam: 01/20 Exam# [id number] Ordering Dr: [place] [id number] EXAM: CT ABDOMEN AND PELVIS WITHOUT INTRAVENOUS CONTRAST CLINICAL INDICATION: LEFT SIDED PAIN TECHNIQUE: Helically acquired images were obtained of the abdomen and pelvis without intravenous contrast. This CT exam was performed using one or more of the following dose reduction techniques: automated exposure control, adjustment of the mA and/or kV according to patient size, and/or use of iterative reconstruction technique. RADIATION DOSE: CTDIvol = 14.08 mGy, DLP = 684.34 mGy-cm COMPARISON: No relevant prior studies available. FINDINGS: LOWER THORAX: Bibasilar dependent atelectasis. No cardiomegaly. No significant pericardial effusion. ABDOMEN: LIVER: Unremarkable. Homogeneous. GALLBLADDER AND BILE DUCTS: Unremarkable. No calcified gallstones. No gallbladder distention or wall edema. No intra- or extrahepatic biliary ductal dilation. PANCREAS: Unremarkable. No focal cystic mass. SPLEEN: Unremarkable. Normal size without focal cystic or solid mass. ADRENALS: Unremarkable. No nodules. KIDNEYS AND URETERS: There is a 1 cm stone in the left intrarenal collecting system obstructing the upper pole calyces. There are other tiny stone fragments in the kidneys bilaterally which are nonobstructing. Normal renal size and position. STOMACH AND BOWEL: Unremarkable. No stomach or bowel distention. No focal inflammatory change. PELVIS: APPENDIX: No evidence of acute appendicitis. BLADDER: Unremarkable. REPRODUCTIVE: Unremarkable as visualized. No mass. ABDOMEN and PELVIS: INTRAPERITONEAL SPACE: Unremarkable. No ascites or other fluid collection. No free air. BONES/JOINTS: Right hip arthroplasty. Degenerative changes of the spine. No suspicious lytic or blastic abnormality. SOFT TISSUES: Unremarkable. No discrete abdominal or pelvic wall hernia. VASCULATURE: Unremarkable. Abdominal aorta is non-dilated. LYMPH NODES: Unremarkable. No enlarged lymph nodes. CT/Abdomen/Pelvis without Cont IMPRESSION: There is a 1 cm stone in the intrarenal collecting system of the left kidney, obstructing the upper pole calyces. Electronically Signed: Jose Luis Manuel MD at 1:33 EDT , CC: Dr. Meet Somers MD; Dr. Rufina Bellamy DO Dessert Cup Machine Feeder: Signed Normal [facility] Emergency Department Summary on 03-04-2024 Emergency Department Summary [facility] Medical Records Department [address] [place] [address] Emergency Department Summary 03/04/24 MR#: [id number] Acct: [id number] Name: SUDHEER ANTOINE Rep #: [id number] : 1955 68 From: Meet Somers MD PCP: Dr. Rufina Bellamy DO Status:DEP ER Location: ED HPI HPI - GI History of Present Illness Chief Complaint: Flank Pain Informant: patient and spouse/S.O. Abdominal Pain/Flank Pain Onset: Hours (3-4) Context: Sudden Onset Timing: Continuous and Waxes and wanes Quality: Burning Location: Left Flank Current Severity: Severe Maximum Severity: Severe Worsened by: Nothing Relieved by: Nothing Nausea/Vomiting/Emesis GI Symptom: Positive for Nausea and Vomiting Diarrhea/Melena/Hematoc hezia GI Symptom: Negative for Diarrhea, Melena or Hematochezia Associated Symptoms Associated Symptoms: Negative for Dysuria, Frequency, Hematuria or Urgency Narrative Narrative: Never had this pain before. Started suddenly and severe and has been colicky. Took Tylenol and 2 baby aspirin, which did not seem to help. No syncope. No numbness or tingling down her legs. Pain is high left flank radiates a little bit into her back, no anterior abdominal pain. No groin pain. Other than a remote laparoscopy no other abdominal surgeries. [facility] Medical History Wears glasses Cancer Arthritis Back pain Injury of head and neck Gastric reflux Non-smoker History of pain when walking Home Medications ???Medication ???Instructions ???Recorded ???Last Taken ???Type omega-3 fatty acids 1,000 mg 1,000 mg PO DAILY supplement 12/10/20 12/21/20 08:00 History capsule (Fish Oil Concentrate) lactobacillus combination no.4 3 3,000 mmu cells PO DAILY supplement 01/04/21 01/17/21 08:00 History billion cell capsule (Probiotic) multivitamin 1 tab PO DAILY supplement 01/04/21 01/17/21 08:00 History acetaminophen 500 mg tablet 1,000 mg (2 x 500 mg) PO Q8H #100 01/19/21 Unknown Rx tabs ciprofloxacin HCl 500 mg tablet 500 mg PO BID #14 TABLETS 03/04/24 Unknown Rx ondansetron 8 mg disintegrating 8 mg PO Q8H PRN nausea and 03/04/24 Unknown Rx tablet vomiting #15 tabs oxycodone-acetaminophen 5 mg-325 0.5 - 1 tab (0.5 - 1 x 5-325 mg) 03/04/24 Unknown Rx mg tablet PO Q6H PRN PRN Pain 3 days #10 TABLETS Allergy/AdvReac Type Severity Reaction Status Date / Time chlorpromazine (From Allergy Anaphylaxis Verified 03/04/24 00:11 Thorazine) niacin Allergy Hives Verified 03/04/24 00:11 prochlorperazine (From Allergy Unknown Verified 03/04/24 00:11 Compazine) prochlorperazine edisylate Allergy Unknown Verified 03/04/24 00:11 (From Compazine) prochlorperazine maleate Allergy Unknown Verified 03/04/24 00:11 (From Compazine) promethazine HCl (From Allergy Unknown Verified 03/04/24 00:11 Phenergan) trimethobenzamide HCl (From Allergy Unknown Verified 03/04/24 00:11 Tigan) codeine AdvReac Other Verified 03/04/24 00:11 Surgical History Presence of unspecified artificial knee joint History of total right hip arthroplasty Hx of colonoscopy Hx of breast lump removal Hx of laparoscopy Social History Smoking Status: Never smoker ROS ROS ED Constitutional Constitutional ED: Denies chills or fever(s) Eyes Eyes: Denies change in vision or diplopia ENT ENT ED: Denies rhinorrhea or sore throat Cardiovascular Cardiovascular: Denies chest pain or palpitations Respiratory/Chest Respiratory/Chest: Denies cough or dyspnea Gastrointestinal Gastrointestinal: Reports abdominal pain, nausea and vomiting; Denies diarrhea Genitourinary Genitourinary ED: Reports as per HPI and flank pain; Denies dysuria or hematuria Musculoskeletal Musculoskeletal: Reports back pain; Denies neck pain Integumentary Denies abscess or rash Neurologic Neurologic: Denies headache(s), paresthesias or weakness Psychiatric Psychiatric: Denies anxiety or suicidal thoughts EXAM Physical Exam Const Vital Signs: 03/04/24 00:11 Temperature 98.1 F Temperature Source Oral Pulse Rate 72 Respiratory Rate 16 Blood Pressure 106/95 H Blood Pressure Mean 98 Pulse Ox 98 Oxygen Delivery Method Room Air Positive well nourished and well developed Constitutional Narrative: Uncomfortable, in pain, no distress General Appearance ED: well developed and NAD HEENT Reports moist mucous membranes normocephalic and atraumatic Eyes PERRL and EOMs intact bilaterally Neck full ROM and supple Resp normal respiratory effort and clear to auscultation bilaterally Cardio regular rate, regular rhythm and no murmurs GI non-tender and (more content not included)... Normal [facility] Urinalysis, Completeon 03-04 BACTERIA 4+ /hpf Normal None Seen [facility] Comment on above: Order Comment: CLEAN CATCH Performed By: #### L 400.0001 #### [facility] [address] [place], [place], [id number] CAST,FINE GRAN 5-10 SEEN Normal 0-5 [facility] Comment on above: Order Comment: CLEAN CATCH Performed By: #### L 400.0001 #### [facility] [address] [place], [place], [id number] CAST,HYALINE 10-25 SEEN Normal 0-5 [facility] Comment on above: Order Comment: CLEAN CATCH Performed By: #### L 400.0001 #### [facility] [address] [place], [place], [id number] EPI,SQUAMOUS 5-10 SEEN Normal 5-10 [facility] Comment on above: Order Comment: CLEAN CATCH Performed By: #### L 400.0001 #### [facility] [address] [place], [place], [id number] Mucus Ql (Urine sed) RARE Normal [facility] Comment on above: Order Comment: CLEAN CATCH Performed By: #### L 400.0001 #### [facility] [address] [place], [address] RBC 5-10 SEEN Normal 0-5 [facility] Comment on above: Order Comment: CLEAN CATCH Performed By: #### L 400.0001 #### [facility] [address] [place], [address] WBC 10-25 SEEN Normal 0-5 [facility] Comment on above: Order Comment: CLEAN CATCH Performed By: #### L 400.0001 #### [facility] [address] [place], [address] CBC W/Diff, Automatedon 07- 2 Absolute Lymph 1.64 X10 3/uL Normal 0.83-4.51 [facility] Comment on above: Performed By: #### L 500.4100, L500.4050, L100.0100 ####[facility] [address] [place], [address] Absolute Neut 2.5 X10 3/uL Normal 2.0-7.7 [facility] Comment on above: Performed By: #### L 500.4100, L500.4050, L100.0100 ####[facility] [address] [place], [address] Basophils/100 WBC (Bld) 0.8 % Normal 0-1 [facility] Comment on above: Performed By: #### L 500.4100, L500.4050, L100.0100 ####[facility] [address] [place], [address] Eosinophils/100 WBC (Bld) 2.5 % Normal 0-5 [facility] Comment on above: Performed By: #### L 500.4100, L500.4050, L100.0100 ####[facility] [address] [place], [address] Erythrocyte distribution width (RBC) [Ratio] 13.2 % Normal 11.6-14.6 [facility] Comment on above: Performed By: #### L 500.4100, L500.4050, L100.0100 ####[facility] [address] [place], [address] Hematocrit (Bld) [Volume fraction] 41.0 % Normal 37-47 [facility] Comment on above: Performed By: #### L 500.4100, L500.4050, L100.0100 ####[facility] [address] [place], [address] Hemoglobin (Bld) [Mass/Vol] 13.1 g/dL Normal 12.0-15.0 [facility] Comment on above: Performed By: #### L 500.4100, L500.4050, L100.0100 ####[facility] [address] [place], [address] IG% 0.400 Normal 0.0-0.9 [facility] Comment on above: Result Comment: IG% - Immature Granulocytes (promyelocytes, myelocytes and metamyelocytes) > 1% indicates that a LEFT SHIFT is Present. Performed By: #### L 500.4100, L500.4050, L100.0100 ####[facility] [address] [place], [address] Lymphocytes/100 WBC (Bld) 34.6 % Normal 19-41 [facility] Comment on above: Performed By: #### L 500.4100, L500.4050, L100.0100 ####[facility] [address] [place], [address] MCH (RBC) [Entitic mass] 30.1 pg Normal 27.0-32.0 [facility] Comment on above: Performed By: #### L 500.4100, L500.4050, L100.0100 ####[facility] [address] [place], [address] MCHC (RBC) [Mass/Vol] 32.0 g/dL Normal 32-36 [facility] Comment on above: Performed By: #### L 500.4100, L500.4050, L100.0100 ####[facility] [address] [place], [address] MCV (RBC) [Entitic vol] 94.3 fL Normal 81-99 [facility] Comment on above: Performed By: #### L 500.4100, L500.4050, L100.0100 ####[facility] [address] [place], [address] Monocytes/100 WBC (Bld) 8.6 % Normal 0-10 [facility] Comment on above: Performed By: #### L 500.4100, L500.4050, L100.0100 ####[facility] [address] [place], [address] Neutrophils/100 WBC (Bld) 53.1 % Normal 47-70 [facility] Comment on above: Performed By: #### L 500.4100, L500.4050, L100.0100 ####[facility] [address] [place], [address] Nucleated RBC (Bld) [#/Vol] 0 10*3/uL Normal 0-5 [facility] Comment on above: Performed By: #### L 500.4100, L500.4050, L100.0100 ####[facility] [address] [place], [address] Platelet mean volume (Bld) [Entitic vol] 11.1 fL Normal 6.2-12.0 [facility] Comment on above: Performed By: #### L 500.4100, L500.4050, L100.0100 ####[facility] [address] [place], [address] Platelets (Bld) [#/Vol] 244 10*3/uL Normal 150-450 [facility] Comment on above: Performed By: #### L 500.4100, L500.4050, L100.0100 ####[facility] [address] [place], [address] RBC (Bld) [#/Vol] 4.35 10*6/uL Normal 4.2-5.4 [facility] Comment on above: Performed By: #### L 500.4100, L500.4050, L100.0100 ####[facility] [address] [place], [address] RDW SD 45.2 fl High 35.1-43.9 [facility] Comment on above: Performed By: #### L 500.4100, L500.4050, L100.0100 ####[facility] [address] [place], [address] WBC (Bld) [#/Vol] 4.7 10*3/uL Normal 4.4-11.0 [facility] Comment on above: Performed By: #### L 500.4100, L500.4050, L100.0100 ####[facility] [address] [place], [address] Comprehensive Metabolic Prof [facility] 02-08-2024 Albumin [Mass/Vol] 3.5 g/dL Normal 3.2-5.0 [facility] Comment on above: Performed By: #### L 500.4100, L500.4050, L100.0100 ####[facility] [address] [place], [address] Albumin/Globulin [Mass ratio] 0.9 {ratio} Normal 0.9-2.4 [facility] Comment on above: Performed By: #### L 500.4100, L500.4050, L100.0100 ####[facility] [address] [place], [address] ALK P 97 U/L Normal 45-117 [facility] Comment on above: Performed By: #### L 500.4100, L500.4050, L100.0100 ####[facility] [address] [place], [address] ALT [Catalytic activity/Vol] 24 U/L Normal 13-56 [facility] Comment on above: Performed By: #### L 500.4100, L500.4050, L100.0100 ####[facility] [address] [place], [address] AST [Catalytic activity/Vol] 18 U/L Normal 15-37 [facility] Comment on above: Performed By: #### L 500.4100, L500.4050, L100.0100 ####[facility] [address] [place], [address] Bilirubin [Mass/Vol] 0.60 mg/dL Normal 0.20-1.00 [facility] Comment on above: Result Comment: For patients on eltrombopag therapy, use of Dimension [place] TBIL is not recommended. Performed By: #### L 500.4100, L500.4050, L100.0100 ####[facility] [address] [place], [address] BUN/CRE 19.9 RATIO Normal 10-20 [facility] Comment on above: Performed By: #### L 500.4100, L500.4050, L100.0100 ####[facility] [address] [place], [address] CA,Total 9.1 mg/dL Normal 8.5-10.1 [facility] Comment on above: Performed By: #### L 500.4100, L500.4050, L100.0100 ####[facility] [address] [place], [address] Chloride [Moles/Vol] 106 mmol/L Normal 98-107 [facility] Comment on above: Performed By: #### L 500.4100, L500.4050, L100.0100 ####[facility] [address] [place], [address] CO2 [Moles/Vol] 27.0 mmol/L Normal 21.0-32.0 [facility] Comment on above: Performed By: #### L 500.4100, L500.4050, L100.0100 ####[facility] [address] [place], [address] Creatinine [Mass/Vol] 0.85 mg/dL Normal 0.55-1.02 [facility] Comment on above: Result Comment: The validity of the calculated GFR GFRAA in patients over 70 years has not been determined. Clinical correlation is essential. Performed By: #### L 500.4100, L500.4050, L100.0100 ####[facility] [address] [place], [address] EST GFR - AA 85 mL/min Normal >60 [facility] Comment on above: Result Comment: Afri can Bahamian GFR Calc Performed By: #### L 500.4100, L500.4050, L100.0100 ####[facility] [address] [place], [address] GAP 5 Normal 5-15 [facility] Comment on above: Performed By: #### L 500.4100, L500.4050, L100.0100 ####[facility] [address] [place], [address] GFR/1.73 sq M.predicted among non-blacks MDRD (S/P/Bld) [Vol rate/Area] 70 mL/min/{1.73_m2} Normal >60 [facility] Comment on above: Result Comment: Non- GFR Calc Performed By: #### L 500.4100, L500.4050, L100.0100 ####[facility] [address] [place], [address] Globulin (S) [Mass/Vol] 3.7 g/dL Normal 2.2-4.2 [facility] Comment on above: Performed By: #### L 500.4100, L500.4050, L100.0100 ####[facility] [address] [place], [address] Glucose [Mass/Vol] 93 mg/dL Normal 74-106 [facility] Comment on above: Performed By: #### L 500.4100, L500.4050, L100.0100 ####[facility] [address] [place], [address] Potassium [Moles/Vol] 4.7 mmol/L Normal 3.5-5.1 [facility] Comment on above: Performed By: #### L 500.4100, L500.4050, L100.0100 ####[facility] [address] [place], [address] Sodium [Moles/Vol] 138 mmol/L Normal 136-145 [facility] Comment on above: Performed By: #### L 500.4100, L500.4050, L100.0100 ####[facility] [address] [place], [address] T PROT 7.2 g/dL Normal 6.4-8.2 [facility] Comment on above: Performed By: #### L 500.4100, L500.4050, L100.0100 ####[facility] [address] [place], [address] Urea nitrogen [Mass/Vol] 17 mg/dL Normal 7-18 [facility] Comment on above: Performed By: #### L 500.4100, L500.4050, L100.0100 ####[facility] [address] [place], [address] Lipid Profileon 02-08-2024 Cholesterol [Mass/Vol] 320 mg/dL High 200 [facility] Comment on above: Result Comment: <200 mg/dL Desirable 200-240 mg/dL Borderline >240 mg/dL High Risk Performed By: #### L 500.4100, L500.4050, L100.0100 ####[facility] [address] [place], [address] Cholesterol in HDL [Mass/Vol] 67 mg/dL Normal [facility] Comment on above: Result Comment: The drugs N-Acetylcysteine and Metamizole may falsely depress this assay. Reference Range HDL <40 mg/dL Low HDL Cholesterol HDL >or= 60 mg/dL High HDL Cholesterol Performed By: #### L 500.4100, L500.4050, L100.0100 ####[facility] [address] [place], [address] Cholesterol in LDL [Mass/Vol] 228 mg/dL High 0-130 [facility] Comment on above: Performed By: #### L 500.4100, L500.4050, L100.0100 ####[facility] [address] [place], [address] Cholesterol in VLDL [Mass/Vol] 25 mg/dL Normal 5-40 [facility] Comment on above: Performed By: #### L 500.4100, L500.4050, L100.0100 ####[facility] [address] [place], [address] Triglyceride [Mass/Vol] 123 mg/dL Normal [facility] Comment on above: Result Comment: The drugs N-Acetylcysteine and Metamizole may falsely depress this assay. Serum Triglycerides Reference Interval Normal <150 mg/dL Borderline high 150 - 199 mg/dL High 200 - 499 mg/dL Very High > or = 500 mg/dL Performed By: #### L 500.4100, L500.4050, L100.0100 ####[facility] [address] [facility] [place], [address] SCRN MAMM (CAD)W/ROMULO BILATo n 02-04-2024 SCRN MAMM (CAD)W/ROMULO BILAT [facility] Imaging Services [address] [place] [address] SCRN MAMM (CAD)W/ROMULO BILAT MR#: [id number] Acct: [id number] Name: SUDHEER ANTOINE Rep #: [id number] : 1955 F 68 From: Jordi Pyle MD PCP: Dr. Rufina Bellamy DO Status: REG CL Study: SCRN MAMM (CAD)W/ROMULO BILAT Date of Exam: 03/22 Exam# [id number] Ordering [place]: [place] [id number] MAMMOGRAPHY - BILATERAL SCREENING 3-D TOMOSYNTHESIS REASON FOR EXAM: Female, 68 years old. SCREENING PERTINENT HISTORY: No significant family history. TECHNIQUE: 2-D mammograms and 3-D Tomosynthesis of the breast (s) were performed. CAD was performed. COMPARISON: 01/31/2023 FINDINGS: The breast composition is composed of scattered fibroglandular density. Scattered benign calcifications are seen. No dense spiculated masses or suspicious microcalcifications are identified. No architectural distortion is identified. There is no skin thickening or retraction. There has been no significant change since the prior study. No change in lumpectomy changes and calcified scarring in the lower inner quadrant of the right breast. BI/SCRN MAMM (CAD)W/ROMULO BILAT IMPRESSION: No mammographic signs of malignancy. Routine yearly mammograms recommended. ASSESSMENT CATEGORY: BIRADS Category 2: Benign. A letter regarding these results will be sent to the patient by the facility within 30 days. FOLLOW UP RECOMMENDATION: Yearly follow up mammogram recommended. (A) Approximately 10% of breast cancers are not detected by mammography. A normal mammogram should not delay biopsy of a clinically suspicious abnormality. Electronically Signed: Jordi Pyle MD at 8:35 EDT , CC: Dr. Rufina Bellamy, DO [employer] Feeder: Signed Normal [facility] Basophil percentageOrdered B y: Rufina Bellamy on 01-28-2023 Bilirubin [Mass/Vol] 0.50 mg/dL 0.20-1.00 [facility] Comment on above: For patients on eltr ombopag therapy, use of [place] TBIL is not recommended. Chloride [Moles/Vol] 108 mmol/L 98-107 [facility] Cholesterol [Mass/Vol] 304 mg/dL <200 [facility] Comment on above: <200 mg/dL Desirable 200-240 mg/dL Borderline >240 mg/dL High Risk Glucose [Mass/Vol] 101 mg/dL 74-106 [facility] Comment on above: Fasting Glucose resu lt from 100 to 125 mg/dL suggests IMPAIRED HOMEOSTASIS per A.D.A. criteria. Potassium [Moles/Vol] 4.4 mmol/L 3.5-5.1 [facility] Protein [Mass/Vol] 7.1 g/dL 6.4-8.2 [facility] Sodium [Moles/Vol] 138 mmol/L 136-145 [facility] Triglyceride [Mass/Vol] 135 mg/dL <199 [facility] Comment on above: The drugs N-Acetylcy steine and Metamizole may falsely depress this assay.Serum Triglycerides Reference Interval Normal <150 mg/dL Borderline high 150 - 199 mg/dL High 200 - 499 mg/dL Very High > or = 500 mg/dL Laboratory - Chemistry and C hemistry - challengeOrdered By: Rufina Bellamy on 01-28-2023 ALP [Catalytic activity/Vol] 93 U/L 45-117 [facility] ALT [Catalytic activity/Vol] 23 U/L 13-56 [facility] CO2 [Moles/Vol] 26.0 mmol/L 21.0-32.0 [facility] Globulin (S) [Mass/Vol] 3.7 g/dL 2.2-4.2 [facility] Urea nitrogen/Creatinine [Mass ratio] 17.8 mg/mg 10-20 [facility] No Panel InformationOrdered By: Rufina Bellamy on 01-28-2023 Estimated GFR (MDRD) Amer 94 mL/min >60 [facility] Comment on above: GFR Calc Estimated GFR (MDRD) Non-Af Amer 77 mL/min >60 [facility] Comment on above: Non- GFR Calc Serum or plasma albumin benito urement (mass/volume)Ordered By: Rufina Bellamy on 01-28-2023 Albumin [Mass/Vol] 3.4 g/dL 3.2-5.0 [facility] Serum or plasma albumin/glob ulin mass ratioOrdered By: Rufina Bellamy on 01-28-2023 Albumin/Globulin [Mass ratio] 0.9 {ratio} 0.9-2.4 [facility] Serum or plasma calcium benito urement (mass/volume)Ordered By: Rufina Bellamy on 01-28-2023 Calcium [Mass/Vol] 9.1 mg/dL 8.5-10.1 [facility] Serum or plasma cholesterol in HDL measurement (mass/volume)Ordered By: Rufina Bellamy on 01-28-2023 Cholesterol in HDL [Mass/Vol] 66 mg/dL >40 [facility] Comment on above: The drugs N-Acetylcy steine and Metamizole may falsely depress this assay. Reference Range HDL <40 mg/dL Low HDL Cholesterol HDL >or= 60 mg/dL High HDL Cholesterol Serum or plasma cholesterol in VLDL measurement (mass/volume)Ordered By: Rufina Bellamy on 01-28-2023 Cholesterol in VLDL [Mass/Vol] 27 mg/dL 5-40 [facility] Serum or plasma creatinine m easurement (mass/volume)Ordered By: Rufina Bellamy on 01-28-2023 Creatinine [Mass/Vol] 0.79 mg/dL 0.55-1.02 [facility] Comment on above: The validity of the calculated GFR & GFRAA in patients over 70 years has not been determined. Clinical correlation is essential. Serum or plasma low density lipoprotein (LDL) cholesterol measurement (mass/volume)Ordered By: Rufina Bellamy on 01-28-2023 Cholesterol in LDL [Mass/Vol] 211 mg/dL 0-130 [facility] Serum or plasma urea nitroge n measurement (mass/volume)Ordered By: Rufina Bellamy on 01-28-2023 Urea nitrogen [Mass/Vol] 14 mg/dL 7-18 [facility] Thin prep Papanicolaou smear with manual screeningOrdered By: Rufina Bellamy on 01-28-2023 Thin prep Papanicolaou smear with manual screening 17 U/L 15-37 [facility] Thin prep Papanicolaou smear with manual screening 4 5-15 [facility] Absolute lymphocyte countOrd ered By: Rufina Bellamy on 01-27-2023 Lymphocytes Auto (Unsp spec) [#/Vol] 1.56 10*3/uL 0.83-4.51 [facility] Basophil percentageOrdered B y: Rufina Bellamy on 01-27-2023 Basophils/100 WBC (Bld) 0.4 % 0-1 [facility] Eosinophils/100 WBC (Bld) 2.5 % 0-5 [facility] Neutrophils (Bld) [#/Vol] 2.7 10*3/uL 2.0-7.7 [facility] Neutrophils/100 WBC (Bld) 56.4 % 47-70 [facility] WBC (Bld) [#/Vol] 4.7 10*3/uL 4.4-11.0 [facility] Blood erythrocytes count (nu mber/volume)Ordered By: Rufina Bellamy on 01-27-2023 RBC (Bld) [#/Vol] 4.32 10*6/uL 4.2-5.4 [facility] Blood hemoglobin measurement (mass/volume)Ordered By: Rufina Bellamy on 01-27-2023 Hemoglobin (Bld) [Mass/Vol] 13.2 g/dL 12.0-15.0 [facility] Blood lymphocytes/100 leukoc ytesOrdered By: Rufina Bellamy on 01-27-2023 Lymphocytes/100 WBC (Bld) 32.9 % 19-41 [facility] Blood monocytes/100 leukocyt esOrdered By: Rufina Bellamy on 01-27-2023 Monocytes/100 WBC (Bld) 7.4 % 0-10 [facility] Blood platelet mean volumeOr dered By: Rufina Bellamy on 01-27-2023 Platelet mean volume (Bld) [Entitic vol] 11.1 fL 6.2-12.0 [facility] Determination of erythrocyte mean corpuscular volume (MCV)Ordered By: Rufina Bellamy on 01-27-2023 MCV (RBC) [Entitic vol] 95.1 fL 81-99 [facility] Hematocrit Auto (Bld) [Volum e fraction]Ordered By: Rufina Bellamy on 01-27-2023 Hematocrit (Bld) [Volume fraction] 41.1 % 37-47 [facility] Laboratory - Hematology and Cell countsOrdered By: Rufina Bellamy on 01-27-2023 Erythrocyte distribution width (RBC) [Entitic vol] 44.7 fL 35.1-43.9 [facility] Erythrocyte distribution width (RBC) [Ratio] 12.8 % 11.6-14.6 [facility] Immature granulocytes/100 WBC (Bld) 0.400 % 0.0-0.9 [facility] Comment on above: IG% - Immature Granu locytes (promyelocytes, myelocytes and metamyelocytes) > 1% indicates that a LEFT SHIFT is Present. MCH (RBC) [Entitic mass] 30.6 pg 27.0-32.0 [facility] Nucleated RBC/100 WBC (Bld) [Ratio] 0 % 0-5 [facility] MCHC Auto (RBC) [Mass/Vol]Or dered By: Rufina Bellamy on 01-27-2023 MCHC (RBC) [Mass/Vol] 32.1 g/dL 32-36 [facility] Platelets bldOrdered By: Nichole Bellamy on 01-27-2023 Platelets (Bld) [#/Vol] 248 10*3/uL 150-450 [facility] Absolute lymphocyte counton 01-21-2022 Lymphocytes Auto (Unsp spec) [#/Vol] 1.45 10*3/uL 0.83-4.51 [facility] Work Phone: Basophil percentageon 2021 Basophils/100 WBC (Bld) 0.5 % 0-1 [facility] Work Phone: Bilirubin [Mass/Vol] 0.40 mg/dL 0.20-1.00 [facility] Work Phone: Comment on above: For patients on eltr ombopag therapy, use of [place] TBIL is not recommended. Chloride [Moles/Vol] 108 mmol/L 98-107 [facility] Work Phone: Cholesterol [Mass/Vol] 285 mg/dL <200 [facility] Work Phone: Comment on above: <200 mg/dL Desirable 200-240 mg/dL Borderline >240 mg/dL High Risk Eosinophils/100 WBC (Bld) 2.9 % 0-5 [facility] Work Phone: Glucose [Mass/Vol] 99 mg/dL 74-106 [facility] Work Phone: Neutrophils (Bld) [#/Vol] 2.2 10*3/uL 2.0-7.7 [facility] Work Phone: Neutrophils/100 WBC (Bld) 53.1 % 47-70 [facility] Work Phone: Potassium [Moles/Vol] 4.8 mmol/L 3.5-5.1 [facility] Work Phone: Protein [Mass/Vol] 7.2 g/dL 6.4-8.2 [facility] Work Phone: Sodium [Moles/Vol] 139 mmol/L 136-145 [facility] Work Phone: Triglyceride [Mass/Vol] 127 mg/dL <199 [facility] Work Phone: Comment on above: The drugs N-Acetylcy steine and Metamizole may falsely depress this assay.Serum Triglycerides Reference Interval Normal <150 mg/dL Borderline high 150 - 199 mg/dL High 200 - 499 mg/dL Very High > or = 500 mg/dL WBC (Bld) [#/Vol] 4.2 10*3/uL 4.4-11.0 [facility] Work Phone: Blood erythrocytes count (nu mber/volume)on 01-21-2022 RBC (Bld) [#/Vol] 4.47 10*6/uL 4.2-5.4 [facility] Work Phone: Blood hemoglobin measurement (mass/volume)on 01-21-2022 Hemoglobin (Bld) [Mass/Vol] 13.7 g/dL 12.0-15.0 [facility] Work Phone: [phone] Blood lymphocytes/100 leukoc yteson 01-21-2022 Lymphocytes/100 WBC (Bld) 34.5 % 19-41 [facility] Work Phone: [phone] Blood monocytes/100 leukocyt eson 01-21-2022 Monocytes/100 WBC (Bld) 8.8 % 0-10 [facility] Work Phone: [phone] Blood platelet mean volumeon 01-21-2022 Platelet mean volume (Bld) [Entitic vol] 11.1 fL 6.2-12.0 [facility] Work Phone: Determination of erythrocyte mean corpuscular volume (MCV)on 01-21-2022 MCV (RBC) [Entitic vol] 95.7 fL 81-99 [facility] Work Phone: Hematocrit Auto (Bld) [Volum e fraction]on 01-21-2022 Hematocrit (Bld) [Volume fraction] 42.8 % 37-47 [facility] Work Phone: Laboratory - Chemistry and C hemistry - challengeon 01-21-2022 ALP [Catalytic activity/Vol] 91 U/L 45-117 [facility] Work Phone: [phone] ALT [Catalytic activity/Vol] 29 U/L 13-56 [facility] Work Phone: [phone] CO2 [Moles/Vol] 27.0 mmol/L 21.0-32.0 [facility] Work Phone: Globulin (S) [Mass/Vol] 3.8 g/dL 2.2-4.2 [facility] Work Phone: [phone] Urea nitrogen/Creatinine [Mass ratio] 17.9 mg/mg 10-20 [facility] Work Phone: [phone] Laboratory - Hematology and Cell countson 01-21-2022 Erythrocyte distribution width (RBC) [Entitic vol] 45.1 fL 35.1-43.9 [facility] Work Phone: [phone] Erythrocyte distribution width (RBC) [Ratio] 12.8 % 11.6-14.6 [facility] Work Phone: [phone] Immature granulocytes/100 WBC (Bld) 0.200 % 0.0-0.9 [facility] Work Phone: [phone] Comment on above: IG% - Immature Granu locytes (promyelocytes, myelocytes and metamyelocytes) > 1% indicates that a LEFT SHIFT is Present. MCH (RBC) [Entitic mass] 30.6 pg 27.0-32.0 [facility] Work Phone: [phone] Nucleated RBC/100 WBC (Bld) [Ratio] 0 % 0-5 [facility] Work Phone: [phone] MCHC Auto (RBC) [Mass/Vol]on 01-21-2022 MCHC (RBC) [Mass/Vol] 32.0 g/dL 32-36 [facility] Work Phone: [phone] No Panel Informationon 01-21 Estimated GFR (MDRD) Amer 87 mL/min >60 [facility] Work Phone: [phone] Comment on above: GFR Calc Estimated GFR (MDRD) Non-Af Amer 72 mL/min >60 [facility] Work Phone: [phone] Comment on above: Non- GFR Calc Platelets bldon 01-21-2022 Platelets (Bld) [#/Vol] 248 10*3/uL 150-450 [facility] Work Phone: [phone] Serum or plasma albumin benito urement (mass/volume)on 01-21-2022 Albumin [Mass/Vol] 3.4 g/dL 3.2-5.0 [facility] Work Phone: [phone] Serum or plasma albumin/glob ulin mass ratioon 01-21-2022 Albumin/Globulin [Mass ratio] 0.9 {ratio} 0.9-2.4 [facility] Work Phone: [phone] Serum or plasma calcium benito urement (mass/volume)on 01-21-2022 Calcium [Mass/Vol] 9.0 mg/dL 8.5-10.1 [facility] Work Phone: [phone] Serum or plasma cholesterol in HDL measurement (mass/volume)on 01-21-2022 Cholesterol in HDL [Mass/Vol] 72 mg/dL >40 [facility] Work Phone: Comment on above: The drugs N-Acetylcy steine and Metamizole may falsely depress this assay. Reference Range HDL <40 mg/dL Low HDL Cholesterol HDL >or= 60 mg/dL High HDL Cholesterol Serum or plasma cholesterol in VLDL measurement (mass/volume)on 01-21-2022 Cholesterol in VLDL [Mass/Vol] 25 mg/dL 5-40 [facility] Work Phone: [phone] Serum or plasma creatinine m easurement (mass/volume)on 01-21-2022 Creatinine [Mass/Vol] 0.84 mg/dL 0.55-1.02 [facility] Work Phone: Comment on above: The validity of the calculated GFR & GFRAA in patients over 70 years has not been determined. Clinical correlation is essential. Serum or plasma low density lipoprotein (LDL) cholesterol measurement (mass/volume)on 01-21-2022 Cholesterol in LDL [Mass/Vol] 188 mg/dL 0-130 [facility] Work Phone: [phone] Serum or plasma urea nitroge n measurement (mass/volume)on 01-21-2022 Urea nitrogen [Mass/Vol] 15 mg/dL 7-18 [facility] Work Phone: [phone] Thin prep Papanicolaou smear with manual screeningon 01-21-2022 Thin prep Papanicolaou smear with manual screening 22 U/L 15-37 [facility] Work Phone: [phone] Thin prep Papanicolaou smear with manual screening 4 5-15 [facility] Work Phone: DIGITAL MAMMO SCREENINGon DIGITAL MAMMO SCREENING BILATERAL DIGITAL SCREENING MAMMOGRAM WITH CAD: 12/09/2020 Ordering Physician: Bipin Carrizales M.D. CLINICAL: Routine screening. Comparison is made to exams dated: 06/17/2019 mammogram and 06/13/2018 mammogram - [facility]. The tissue of both breasts is heterogeneously dense. This may lower the sensitivity of mammography. Current study was also evaluated with a Computer Aided Detection (CAD) system. There are benign vascular calcifications and calcifications both breasts. There also are post operative findings and a surgical clip right breast. No significant masses, calcifications, or other findings are seen in either breast. There has been no significant interval change. IMPRESSION: BENIGN There is no mammographic evidence of malignancy. A 1 year screening mammogram is recommended. The exam was reviewed by a staff physician. The false-negative rate of mammography is approximately 10%. Management of a palpable abnormality must be based upon clinical grounds. Nnamdi Goode M.D. tlv,am/:12/09/2020 08:36:57 Customer Consultant: Isabella HUNT ( Edin) ( M), [facility] letter sent: Mammography Normal BI-RADS: 2 Benign Reported By: NNAMDI KEMP M.D. Signed By: NNAMDI KEMP M.D. [facility] Vital Signs Date Time Vital Sign Value Performing Clinician Jaison yadav 01-18-2022 07:43-0400 Body mass index (BMI) [Ratio] 30.1 kg/m2 Dr. Sukumar Green Work Phone: [facility] Work Phone: Encounters Encounter Date Encounter Type Care Provider Facility Start: 10-09-2024 ambulatory Rufina Bellamy Facility:[facility] Start: 05-23-2024 End: 05-23-2024 ambulatory [facility] Facility:[facility] Start: 04-04-2024 End: 04-04-2024 ambulatory [facility] Facility:[facility] Start: 03-20-2024 End: 03-20-2024 ambulatory Amyjackie Genao Facility:[facility] Start: 03-05-2024 ambulatory Rufina Bellamy Facility:[facility] Start: 03-05-2024 End: 03-06-2024 Evaluation and management of inpatient Rufina Mia Facility:[facility] Start: 03-04-2024 End: 03-04-2024 Emergency department patient visit Rufina Bellamy Facility:[facility] Start: 02-08-2024 End: 02-08-2024 ambulatory Rufina Malny Facility:[facility] Start: 02-04-2024 End: 02-04-2024 ambulatory Rufina Malny Facility:[facility] Start: 05-21-2023 End: 05-21-2023 ambulatory [facility] Work Phone: Start: 05-21-2023 End: 05-21-2023 Patient encounter procedure [facility], [facility] Work Phone: Start: 01-31-2023 End: 01-31-2023 ambulatory [facility] Work Phone: Start: 01-31-2023 End: 01-31-2023 Patient encounter procedure [facility]Outpatient Breast Imaging Work Phone: Start: 01-28-2023 End: 01-28-2023 ambulatory [facility] Work Phone: Start: 01-28-2023 End: 01-28-2023 Patient encounter procedure [facility]Laboratory Work Phone: Start: 01-27-2023 End: 01-27-2023 ambulatory [facility] Work Phone: Start: 01-27-2023 End: 01-27-2023 Patient encounter procedure [facility] Work Phone: Start: 01-21-2022 End: 01-21-[address] Sukumar Green Work Phone: [facility] Start: 01-18-2022 End: 01-18-[address] Sukumar Green Work Phone: [facility] Start: 12-30-2021 End: 12-30-2021 Patient encounter procedure [facility] Breast [facility] Start: 12-28-2021 End: 12-28-2021 Patient encounter procedure [facility]-Laboratory,Fut ure Procedures Date Procedure Procedure Detail Performing Clinician Start: 05-21-2023 Diagnostic radiograp hy of finger Start: 05-21-2023 Plain x-ray of wrist Start: 01-31-2023 Screening mammography Start: 01-18-2022 Plain x-ray of pelvi s and lower extremity Dr. Sukumar Green Work Phone: Start: 12-30-2021 Screening mammography Mariam Green Work Phone: Plan of Treatment Date Care Activity Detail Author Start: 12-30-2021 Screening mammography SCRN KWABENA M (CAD)W/ROMULO BILAT [facility] Work Phone: Payers Date Payer Category Payer Medicare [id number] 2023 Self-pay [id number] 2023 Unknown [id number] Unknown [id number] Unknown [id number] Unknown [id number] Unknown [id number] 2.16.8 [id number] Unknown [id number] 2.16.8 [id number] Unknown [id number] 2.16.8 [id number] Unknown [id number] 2.16.8 [id number] Unknown [id number] 2.16.8 [id number] Unknown [id number] 2.16.8 [id number] Unknown [id number] 2.16.8 [id number] Unknown [id number] 2.16.8 [id number] Unknown [id number] 2.16.8 [id number] Unknown [id number] 2.16.8 [id number] Social History Date Type Detail Facility Start: 03-02-2021 End: 01-18-2022 Tobacco smoking status NHIS Unknown if ever smoked [facility] Start: 1955 Sex Assigned At Female W [facility] Medical Equipment Procedure Code Equipment Code Equipment Origin al Text Equipment Identifier Dates 6.5 Low Profile Hex Screw FDA Start: 01-18-20[address] art: 01-18-2021 127 Neck Angle H ip Stem FDA Start: 01-18-2021 Ceramic V40 Femo ral Head FDA Start: 01-18-2021 Clusterhole Acet abular Shell FDA Start: 01-18-2021 6.5 Low Profile Hex Screw FDA Start: 01-18-20[address] art: 01-18-2021 127 Neck Angle H ip Stem FDA Start: 01-18-2021 Ceramic V40 Femo ral Head FDA Start: 01-18-2021 Clusterhole Acet abular Shell FDA Start: 01-18-2021 [address] art: 01-18-2021 127 Neck Angle H ip Stem FDA Start: 01-18-2021 6.5 Low Profile Hex Screw FDA Start: 01-18-2021 Ceramic V40 Femo ral Head FDA Start: 01-18-2021 Clusterhole Acet abular Shell FDA Start: 01-18-2021 [address] art: 01-18-2021 127 Neck Angle H ip Stem FDA Start: 01-18-2021 6.5 Low Profile Hex Screw FDA Start: 01-18-2021 Ceramic V40 Femo ral Head FDA Start: 01-18-2021 Clusterhole Acet abular Shell FDA Start: 01-18-2021 [address] art: 01-18-2021 127 Neck Angle H ip Stem FDA Start: 01-18-2021 6.5 Low Profile Hex Screw FDA Start: 01-18-2021 Ceramic V40 Femo ral Head FDA Start: 01-18-2021 Clusterhole Acet abular Shell FDA Start: 01-18-2021 [address] art: 01-18-2021 127 Neck Angle H ip Stem FDA Start: 01-18-2021 6.5 Low Profile Hex Screw FDA Start: 01-18-2021 Ceramic V40 Femo ral Head FDA Start: 01-18-2021 Clusterhole Acet abular Shell FDA Start: 01-18-2021 [address] art: 01-18-2021 127 Neck Angle H ip Stem FDA Start: 01-18-2021 6.5 Low Profile Hex Screw FDA Start: 01-18-2021 Ceramic V40 Femo ral Head FDA Start: 01-18-2021 Clusterhole Acet abular Shell FDA Start: 01-18-2021 Evaluation note Note Date & Type Note Facility Evaluation note No assessment information availa [facility] Work Phone: Evaluation note Note Date & Type Note Facility Evaluation note Diagnosis Onset Date History of total right hip arthroplasty acute [facility] Work Phone: Summary Purpose Family History No Family History Records FoundNo Family History Records Found Advance Directives No Advanced Directives Records Found Advance Directive Response Recorded Date/ Time Living Will Yes January 18, 2021 4:30pm Power of Clearing Distribution Clerk Yes January 18 4:30pm Chief Complaint and Reason for Visit Chief Complaint SCREENING Chief Complaint SCREENING RIGHT HIP xray Reason for Visit History of total rig ht hip arthroplasty Chief Complaint REDRAW CMP & LIPID SCREENING Additional Source Comments INFORMATION SOURCE (unrecogn ized section and content) DATE CREATED AUTHOR 12/21/2020 Patt Ward DATE CREATED AUTHOR AUTHOR'S ORGANIZ ATION 10/11/2024 [facility] Goals (unrecognized section and content) Goals may be documented in a n alternate sectionGoals may be documented in an alternate sectionGoals may be documented in an alternate sectionGoals may be documented in an alternate sectionGoals may be documented in an alternate sectionGoals may be documented in an alternate sectionGoals may be documented in an alternate section Care Teams (unrecognized sec tion and content) Team Status: Active Member Role Status Dates BIPIN CARRIZALES Family Provider Active Dr. Rufina Bellamy , Primary Care Provider Active Team Status: Active Member Role Status Dates Dr. Rufina Bellamy , DO Primary Care Provide r, Attending Provider, Referring Provider Active Team Status: Inactive Member Role Status Dates Dr. Rufina Bellamy , DO Primary Care Provide r, Attending Provider, Referring Provider Active FOR RECORDS PERTAINING TO PATIENTS WHO ARE OR HAVE BEEN ENROLLED IN A CHEMICAL DEPENDENCY/SUBSTANCEABUSE PROGRAM, SOME INFORMATION MAY BE OMITTED. This clinical summary was aggregated from multiple sources. Caution should be exercised in using it in the provision of clinical care. This summary normalizes information from multiple sources, and as a consequence, information in this document may materially change the coding, format and clinical context of patient data. In addition, data may be omitted in some cases. CLINICAL DECISIONS SHOULD BE BASED ON THE PRIMARY CLINICAL RECORDS. [facility] [employer] [facility]. provides no warranty or guarantee of the accuracy or completeness of information in this document.
== END | disposition home or self-care (01) ==
PROVIDERS: PCP Family Medicine; Referring Provider Family Medicine; Visit Provider Family Medicine
DX: Z12.31 Encounter for screening mammogram for malignant neoplasm of breast (principal)
CPT/HCPCS: 77063; 77067

== ENCOUNTER → 2025-02-07 | Outpatient (CLI) | payer MEDICARE, OTHER, SELFPAY ==
--- OUTSIDE RECORDS SUMMARY | 2025-02-07 07:02 | XMS RPT_ITS | CCD ---
Author Organization [facility] Care Team Providers Care Precision Jig Grinder Name Role Phone Dr. Sukumar Green Attending Provider [phone] Mia, Dr. Almaraz Primary Care Provider [phone] Dr. Rufina Bellamy Referring Provider Dr. Oziel Gomez Attending Provider [phone] Malys, Rufina Attending Unavailable Malys, Rufina Referring Unavailable Malys, Rufina Primary Care Unavailable Malys, Rufina Attending Unavailable Malys, Rufina Primary Care Unavailable Malys, Rufina Primary Care Unavailable Malys, Rufina Attending Unavailable Malys, Rufina Referring Unavailable Wyneski, Amy Attending Unavailable Wyneski, Amy Referring Unavailable Malys, Rufina Primary Care Unavailable Wyneski, Amy Attending Unavailable Wyneski, Amy Referring Unavailable Malys, Rufina Primary Care Unavailable Malys, Rufina Primary Care Unavailable Wyneski, Amy Attending Unavailable Wyneski, Amy Referring Unavailable Wyneski, Amy Admitting Unavailable BolasStefanoShekhar F Consulting Unavailable Wyneski, Amy Referring Unavailable Wyneski, Amy Attending Unavailable Malys, Rufina Primary Care Unavailable Malys, Rufina Primary Care Unavailable Johnny Linares Consulting Unavailable Johnny Linares Attending Unavailable Wyneski, Amy Referring Unavailable Wyneski, Amy Admitting Unavailable Wyneski, Amy Consulting Unavailable Kotsonis, Sehkhar F Consulting Unavailable Kotsonis, Shekhar F Attending Unavailable Meet Somers Attending Unavailable Malys, Rufina Primary Care Unavailable Allergies Allergy Classification Reported Allergen(s) Allergy Type Date of Onset Reaction(s) Facility (7 sources) chlorproMAZINE Drug Allergy 1 Anaphylaxis [facility] (7 sources) Codeine Drug Allergy 1 Other [facility] (7 sources) Niacin Drug Allergy 1 Hives [facility] (7 sources) Prochlorperazine Drug Allergy 1 Unknown [facility] (8 sources) Prochlorperazine; Translations: [prochlorperazine maleate] Drug Allergy 1 Unknown [facility] (8 sources) Promethazine; Translations: [promethazine HCl] Drug Allergy 1 Unknown [facility] (8 sources) trimethobenzamide; Translations: [trimethobenzamide HCl] Drug Allergy 1 Unknown [facility] (8 sources) prochlorperazine edisylate; Translations: [prochlorperazine edisylate] Allergy to substance 1 Unknown [facility] (1 source) chlorproMAZINE Drug Allergy 4 [facility] (1 source) Codeine Drug Allergy 4 [facility] (1 source) Niacin Drug Allergy 4 [facility] (1 source) Prochlorperazine Drug Allergy 4 [facility] Medications Current Medications Medication Drug Class(es) [...] TABLET PO DAILY January 04, 2021 12:00am [place]-3 Fatty Acids (Fish Oil Concentrate) 1,000 mg capsule (7 sources) Start: 12-10-2020 take 1 capsule by mouth once daily [place]-3 Fatty Acids (Fish Oil Concentrate) 1,000 mg capsule Active 1000 MG PO DAILY December 10, 2020 9:36am Start: 12-10-2020 take 1 capsule by [facility] once daily [place]-3 Fatty Acids (Fish Oil Concentrate) 1,000 mg [...] for other orthopedic aftercare] 03-02-2021 Episodic Other connective tissue disease (5 sources) [...] knee; Translations: [Right knee pain] 12-10-2020 Episodic Other screening for suspected conditions (not mental disorders or infectious disease) (1 source) Encounter for screening mammogram for malignant neoplasm of breast; Translations: [Encounter for screening mammogram for malignant neoplasm of breast] Onset: 02-05-2025 Episodic Past or Other Problems Problem Classification [...] reflux uropathy, unspecified] Onset: 03-06-2024 Episodic Other aftercare (1 source) Encounter for therapeutic drug level monitoring; Translations: [Encounter for therapeutic drug level monitoring] Onset: 10-09-2024 Episodic Urinary tract infections (1 source) Urinary tract infection, site not specified; Translations: [Urinary tract infection, site not specified] Onset: 03-06-2024 Episodic Results Test Name Value Interpretation Reference Range Facility SCRN MAMM (CAD)W/ROMULO BILATo n 02-05-2025 SCRN MAMM (CAD)W/ROMULO BILAT [facility] Imaging Services [address] [place] [address] [id number] SCRN MAMM (CAD)W/ROMULO BILAT MR#: [id number] Acct: [id number] Name: SUDHEER ANTOINE Rep #: [id number] : 1955 F 69 From: Sampson griffin MD PCP: Dr. Rufina Bellamy DO Status: [facility] Study: SCRN MAMM (CAD)W/ROMULO BILAT Date of Exam: 01/27 Exam# [id number] Ordering Dr: Rufina Bellamy DO EXAM: SCRN MAMM (CAD)W/ROMULO BILAT DATE: 02/05/2025 CLINICAL HISTORY: F, Age 69 y/o , SCREENING Personal history of breast cancer. History of prior right lumpectomy with radiation therapy. Sister with breast cancer. Mother with breast cancer. Grandmother with breast cancer. TECHNIQUE: SCRN MAMM (CAD)W/ROMULO BILAT COMPARISON: Prior exam(s) dated February 04, 2024.. FINDINGS: TISSUE DENSITY: The breasts are heterogeneously dense, which may obscure small masses. Bilateral Breast Mammographic Findings: Once again, the patient is status post lumpectomy in the deep central medial aspect of the right breast with resultant dystrophic calcification at the operative site and deformity of the breast with skin thickening. This is unchanged. No suspicious masses, areas of developing architectural distortion, or suspicious calcifications. There has been no significant interval change. BI/SCRN MAMM (CAD)W/ROMULO BILAT IMPRESSION: Stable examination. OVERALL FINAL ASSESSMENT BI-RADS 2: BENIGN RECOMMEND ANNUAL MAMMOGRAPHIC SCREENING. RECOMMENDATION: Routine annual follow-up in 1 Year A letter with findings and recommendations will be mailed to the patient. Reading Location: [facility] CC: Dr. Rufina Bellamy DO Director Of Student Life: Signed Normal [facility] Abdomen Single Viewon 2023 Abdomen Single View [facility] Imaging Services [address] [place] [address] [id number] Abdomen Single View MR#: [id number] Acct: [id number] Name: SUDHEER ANTOINE Rep #: [id number] : 1955 F 69 From: Jose Luis Becerra PCP: Dr. Rufina Bellamy DO Status: REG CLI Study: Abdomen Single View Date of Exam: 05/23/24 Exam# [id number] Ordering Dr: Amy Genao MD [id number] STUDY: XR Abdomen 1 View 05/23/2024 3:08 [...] Amy Genao MD; Dr. Rufina Bellamy DO Director Of Student Life: Signed Normal [facility] Abdomen Single Viewon 2023 Abdomen Single View [facility] Imaging Services [address] [place] [address] Abdomen Single View MR#: [id number] Acct: [id number] Name: SUDHEER ANTOINE Rep #: [id number] : 1955 F 68 From: Brodie brown MD PCP: Dr. Rufina Bellamy DO Status: REG CLI Study: Abdomen Single View Date of Exam: 04/04/24 Exam# [id number] Ordering Dr: Amy Genao MD [id number] INDICATION: KUB- KIDNEY STONES EXAMINATION/TECHNIQU E: X-RAY - XR Abdomen 1 View COMPARISON: Prior study dated: 01/18/2022 ____ FINDINGS: BOWEL GAS PATTERN: Non-obstructive. No bowel [...] Amy Genao MD; Dr. Rufina Bellamy DO Director Of Student Life: Signed Normal [facility] Discharge Instructionon 02-28 Discharge Instruction [facility] Medical Records Department [address] [place] [address] Instructions for Home/Discharge Instructions 03/20/24 1455 MR#: [id number] Acct: [id number] Name: SUDHEER ANTOINE Rep #: [id number] : 1955 68 From: Amy Genao MD PCP: Dr. Rufina Bellamy DO Status:REG SD Discharge Instructions Diet Discharge Diet: No restrictions [...] Care Provider: Rufina Bellamy Instructions Print Language: Upper Sorbian Discharge Orders/Prescriptions Prescriptions: New oxycodone-acetaminop hen [Percocet] 5-325 mg tablet 1 tab PO [...] mmu cells PO DAILY ondansetron 8 mg tablet,disintegratin g 8 mg PO Q8H PRN (Reason: nausea and vomiting) Qty: 15 0RF oxycodone-acetaminop hen 5-325 mg tablet 0.5 - 1 tab PO Q6H PRN PRN (Reason: Pain) 3 Days Qty: 10 0RF Referrals / Follow Up: Rufina Bellamy DO [Primary Care Provider] - Disposition Disposition (needs filled in before D/C Order can be placed): Home, Self Care 03/20/24 1459 Amy Genao MD CC: Dr. Rufina Bellamy DO Signed [facility] MR/POSTOP.ANEon 03-20-2024 MR/POSTOP.[facility] Medical Records Department [address] [place] [address] Anesthesia Postop Eval I 03/20/24 1520 MR#: [id number] Acct: [id number] Name: ARASHSUDHEERJOSEFINA SHAFER Rep #: [id number] : 1955 68 From: Cathy Meza PCP: Dr. Rufina Bellamy, Status:REG SDC Y Race: C Location: [facility] Anesthesia: Postop Eval I Current Vital [...] document: Postop Eval 1 completed: Yes 03/20/24 1525 Date Cathy Hickmanignjovita Signature: Date CC: Signed [facility] MR/[id number] 03-20-2024 MR/POSTOPAN2 [facility] Medical Records Department [address] [place] [address] Anesthesia Postop Eval II 03/20/24 1611 MR#: [id number] Acct: [id number] Name: SUDHEER ANTOINE Rep #: [id number] : 1955 68 From: Rex Marinelli MD PCP: Dr. Rufina Malys, DO Status:REG SDC Y Race: C Location: [place] [address] Anesthesia Postop Eval I Sum Postop Eval Completion status Anesthesia document: Postop Eval 1 completed: Yes Anesthesia Postop Eval I Summary Anesthesia Postop Eval I Summary: Anesthesia Postop Eval I: Assessment Summary Airway patent Yes 03/20/24 15:25 MEAT PACKER.GDOTT Spontaneous unlabored Yes 03/20/24 15:25 MEAT PACKER.GDOTT respirations Mental status Awake,Calm 03/20/24 15:25 MEAT PACKER.GDOTT nausea No 03/20/24 15:25 MEAT PACKER.GDOTT Vomiting No 03/20/24 15:25 MEAT PACKER.GDOTT Anesthesia Postop Eval I: Fluid Summary Crystalloid volume administer 300 03/20/24 15:25 MEAT PACKER.GDOTT (ml) Colloids volume administered ( ml) Blood Product volume administered (ml) Total IV fluid infused 300 03/20/24 15:25 MEAT PACKER.GDOTT Anesthesia Postop Eval I: Summary Notes Anesthesia Complication No 03/20/24 15:25 MEAT PACKER.GDOTT Anesthesia Complication Comment: Post-operative progress note Anesthesia: Postop Eval II Evaluation Mental status: Awake Pain Level: 0 nausea: No Vomiting: No 03/20/24 1611 Date Rex Remhan Signature: Date CC: Signed Normal [facility] Operative Reporton 4 Operative Report [facility] Medical Records Department [address] [place] [address] Operative Report 03/20/24 1459 MR#: [id number] Acct: [id number] Name: SUDHEER ANTOINE Rep #: [id number] : 1955 68 From: Amy Genao MD PCP: Dr. Rufina Bellamy, DO Status:REG SDC Location: [address] Report of Operation Date of Procedure: 03/20/24 [...] MD; Dr. Rufina Bellamy DO Signed Normal [facility] Culture, Blood (WB)on 2023 CUB No growth in 5 days. Normal [facility] Comment on above: Performed By: #### L 500.4050, L100.0100 #### [facility] [address] [place], [address] Urine Cultureon 03-08-2024 [facility] Comments: COLLECTED IN OR--URINE CULTURE Escherichia coli [place] Count <1000 Escherichia coli: REACTION Ampicillin Islt AYNA 4 S Ampicillin+Sulbac Islt YANA <=2 S [...] TMP SMX Islt YANA <=20 S Normal [facility] Comment on above: Performed By: #### L 500.4050, L100.0100 #### [facility] [address] [place], [address] Basic Metabolic Profile (BMP )on 03-06-2024 BUN/CRE 26.5 RATIO High 10-20 [facility] Comment on above: Performed By: #### L 500.2500, L100.0500 #### [facility] [address] [place], [address] CA,Total 8.0 mg/dL Low 8.5-10.1 [facility] Comment on above: Performed By: #### L 500.2500, L100.0500 #### [facility] [address] [place], [address] Chloride [Moles/Vol] 107 mmol/L Normal 98-107 [facility] Comment on above: Performed By: #### L 500.2500, L100.0500 #### [facility] [address] [place], [address] CO2 [Moles/Vol] 25.0 mmol/L Normal 21.0-32.0 [facility] Comment on above: Performed By: #### L 500.2500, L100.0500 #### [facility] [address] [place], [address] Creatinine [Mass/Vol] 1.02 mg/dL Normal 0.55-1.02 [facility] Comment on above: Result Comment: The validity of the calculated GFR GFRAA in patients over 70 years has not been determined. Clinical correlation is essential. Performed By: #### L 500.2500, L100.0500 #### [facility] [address] [place], [address] ECRCL 54.11 ml/min Normal [facility] Comment on above: Performed By: #### L 500.2500, L100.0500 #### [facility] [address] [place], [address] EST GFR - AA 69 mL/min Normal >60 [facility] Comment on above: Result Comment: Afri can [facility] GFR Calc Performed By: #### L 500.2500, L100.0500 #### [facility] [address] [place], [address] GAP 5 Normal 5-15 [facility] Comment on above: Performed By: #### L 500.2500, L100.0500 #### [facility] [address] [place], [address] GFR/1.73 sq M.predicted among non-blacks MDRD (S/P/Bld) [Vol rate/Area] 57 mL/min/{1.73_m2} Low >60 [facility] Comment on above: Result Comment: Non- GFR Calc Performed By: #### L 500.2500, L100.0500 #### [facility] [address] [place], [address] Glucose [Mass/Vol] 126 mg/dL High 74-106 [facility] Comment on above: Result Comment: Fast ing Glucose result greater than or equal to 126 mg/dL suggests DIABETES MELLITUS per A.D.A. criteria. Performed By: #### L 500.2500, L100.0500 #### [facility] [address] [place], [address] Potassium [Moles/Vol] 3.6 mmol/L Normal 3.5-5.1 [facility] Comment on above: Performed By: #### L 500.2500, L100.0500 #### [facility] [address] [place], [address] Sodium [Moles/Vol] 137 mmol/L Normal 136-145 [facility] Comment on above: Performed By: #### L 500.2500, L100.0500 #### [facility] [address] [place], [address] Urea nitrogen [Mass/Vol] 27 mg/dL High 7-18 [facility] Comment on above: Performed By: #### L 500.2500, L100.0500 #### [facility] [address] [place], [address] CBC-Complete Blood Cnt No Di ffon 03-06-2024 Erythrocyte distribution width (RBC) [Ratio] 13.6 % Normal 11.6-14.6 [facility] Comment on above: Performed By: #### L 500.2500, L100.0500 #### [facility] [address] [place], [address] Hematocrit (Bld) [Volume fraction] 33.0 % Low 37-47 [facility] Comment on above: Performed By: #### L 500.2500, L100.0500 #### [facility] [address] [place], [address] Hemoglobin (Bld) [Mass/Vol] 10.5 g/dL Low 12.0-15.0 [facility] Comment on above: Performed By: #### L 500.2500, L100.0500 #### [facility] [address] [place], [address] MCH (RBC) [Entitic mass] 30.2 pg Normal 27.0-32.0 [facility] Comment on above: Performed By: #### L 500.2500, L100.0500 #### [facility] [address] [place], [address] MCHC (RBC) [Mass/Vol] 31.8 g/dL Low 32-36 [facility] Comment on above: Performed By: #### L 500.2500, L100.0500 #### [facility] [address] [place], [address] MCV (RBC) [Entitic vol] 94.8 fL Normal 81-99 [facility] Comment on above: Performed By: #### L 500.2500, L100.0500 #### [facility] [address] [place], [address] Platelet mean volume (Bld) [Entitic vol] 11.4 fL Normal 6.2-12.0 [facility] Comment on above: Performed By: #### L 500.2500, L100.0500 #### [facility] [address] [place], [address] Platelets (Bld) [#/Vol] 141 10*3/uL Low 150-450 [facility] Comment on above: Performed By: #### L 500.2500, L100.0500 #### [facility] [address] [place], [address] RBC (Bld) [#/Vol] 3.48 10*6/uL Low 4.2-5.4 [facility] Comment on above: Performed By: #### L 500.2500, L100.0500 #### [facility] [address] [place], [address] RDW SD 47.5 fl High 35.1-43.9 [facility] Comment on above: Performed By: #### L 500.2500, L100.0500 #### [facility] [address] [place], [address] WBC (Bld) [#/Vol] 8.4 10*3/uL Normal 4.4-11.0 [facility] Comment on above: Performed By: #### L 500.2500, L100.0500 #### [facility] [address] [place], [address] Discharge Instructionon 08-0 Discharge Instruction [facility] Medical Records Department [address] [place] [address] Instructions for Home/Discharge Instructions 03/06/24 1140 MR#: [id number] Acct: [id number] Name: SUDHEER ANTOINE Rep #: [id number] : 1955 68 From: Amy Genao MD [...] BID Qty: 14 0RF ondansetron 8 mg tablet,disintegratin g 8 mg PO Q8H PRN (Reason: nausea and vomiting) Qty: 15 0RF oxycodone-acetaminop hen 5-325 mg tablet 0.5 - 1 tab PO Q6H PRN PRN (Reason: Pain) 3 Days Qty: 10 0RF Referrals / Follow Up: Rufina Bellamy DO [Primary Care Provider] - Disposition Disposition (needs filled in before D/C Order can be placed): Home, Self Care 03/06/24 1326 Amy Genao MD CC: Dr. Rufina Bellamy DO; Dr. Shekhar Mejia MD Signed [facility] Urine Cultureon 08-08-2024 [facility] RE ORDERED, UNABLE TO CHANGE INT SOURCE TO URINE If further studies are desired, please contact the Microbiology Laboratory within 48 hours. Bacteria Ur Cult Presumptive E. coli [place] Count >100,000 Presumptive E. coli: REACTION Ampicillin [...] TMP SMX Islt YANA <=20 S Normal [facility] Comment on above: Performed By: #### L 500.4050, L100.0100 #### [facility] [address] [place], [address] CBC W/Diff, Automatedon 08-0 7-4 Absolute Lymph 0.37 X10 3/uL Low 0.83-4.51 [facility] Comment on above: Performed By: #### L 500.4050, L100.0100 #### [facility] [address] [place], [address] Absolute Neut 10.3 X10 3/uL High 2.0-7.7 [facility] Comment on above: Performed By: #### L 500.4050, L100.0100 #### [facility] [address] [place], [address] Basophils/100 WBC (Bld) 0.1 % Normal 0-1 [facility] Comment on above: Performed By: #### L 500.4050, L100.0100 #### [facility] [address] [place], [address] Eosinophils/100 WBC (Bld) 0.0 % Normal 0-5 [facility] Comment on above: Performed By: #### L 500.4050, L100.0100 #### [facility] [address] [place], [address] Erythrocyte distribution width (RBC) [Ratio] 13.6 % Normal 11.6-14.6 [facility] Comment on above: Performed By: #### L 500.4050, L100.0100 #### [facility] [address] [place], [address] Hematocrit (Bld) [Volume fraction] 35.9 % Low 37-47 [facility] Comment on above: Performed By: #### L 500.4050, L100.0100 #### [facility] [address] [place], [address] Hemoglobin (Bld) [Mass/Vol] 11.3 g/dL Low 12.0-15.0 [facility] Comment on above: Performed By: #### L 500.4050, L100.0100 #### [facility] [address] [place], [address] IG% 0.700 Normal 0.0-0.9 [facility] Comment on above: Result Comment: IG% - Immature Granulocytes (promyelocytes, myelocytes and metamyelocytes) > 1% indicates that a LEFT SHIFT is Present. Performed By: #### L 500.4050, L100.0100 #### [facility] [address] [place], [address] Lymphocytes/100 WBC (Bld) 3.3 % Low 19-41 [facility] Comment on above: Performed By: #### L 500.4050, L100.0100 #### [facility] [address] [place], [address] MCH (RBC) [Entitic mass] 30.0 pg Normal 27.0-32.0 [facility] Comment on above: Performed By: #### L 500.4050, L100.0100 #### [facility] [address] [place], [address] MCHC (RBC) [Mass/Vol] 31.5 g/dL Low 32-36 [facility] Comment on above: Performed By: #### L 500.4050, L100.0100 #### [facility] [address] [place], [address] MCV (RBC) [Entitic vol] 95.2 fL Normal 81-99 [facility] Comment on above: Performed By: #### L 500.4050, L100.0100 #### [facility] [address] [place], [address] Monocytes/100 WBC (Bld) 4.4 % Normal 0-10 [facility] Comment on above: Performed By: #### L 500.4050, L100.0100 #### [facility] [address] [place], [address] Neutrophils/100 WBC (Bld) 91.5 % High 47-70 [facility] Comment on above: Performed By: #### L 500.4050, L100.0100 #### [facility] [address] [place], [address] Nucleated RBC (Bld) [#/Vol] 0 10*3/uL Normal 0-5 [facility] Comment on above: Performed By: #### L 500.4050, L100.0100 #### [facility] [address] [place], [address] Platelet mean volume (Bld) [Entitic vol] 11.4 fL Normal 6.2-12.0 [facility] Comment on above: Performed By: #### L 500.4050, L100.0100 #### [facility] [address] [place], [address] Platelets (Bld) [#/Vol] 157 10*3/uL Normal 150-450 [facility] Comment on above: Performed By: #### L 500.4050, L100.0100 #### [facility] [address] [place], [address] RBC (Bld) [#/Vol] 3.77 10*6/uL Low 4.2-5.4 [facility] Comment on above: Performed By: #### L 500.4050, L100.0100 #### [facility] [address] [place], [address] RDW SD 47.8 fl High 35.1-43.9 [facility] Comment on above: Performed By: #### L 500.4050, L100.0100 #### [facility] [address] [place], [address] WBC (Bld) [#/Vol] 11.3 10*3/uL High 4.4-11.0 [facility] Comment on above: Performed By: #### L 500.4050, L100.0100 #### [facility] [address] [place], [address] Chest PA and Lateralon 03-05 Chest PA and Lateral [facility] Imaging Services [address] [place] [address] Chest PA and Lateral MR#: [id number] Acct: [id number] Name: SUDHEER ANTOINE Rep #: [id number] : 1955 F 68 From: Nnamdi Gonzalez MD PCP: Dr. Rufina Bellamy, DO Status: [facility] Study: Chest PA and Lateral Date of Exam: 03/05/24 Exam# [id number] Ordering Dr: Manpreet Isidro MD [id number] STUDY: X-RAY CHEST REASON FOR EXAM: Female, [...] Manpreet Isidro MD; Dr. Rufina Bellamy DO Director Of Student Life: Signed Normal [facility] Comprehensive Metabolic Prof ilon 03-05-2024 Albumin [Mass/Vol] 2.7 g/dL Low 3.2-5.0 [facility] Comment on above: Performed By: #### L 500.4050, L100.0100 #### [facility] [address] [place], [address] Albumin/Globulin [Mass ratio] 0.8 {ratio} Low 0.9-2.4 [facility] Comment on above: Performed By: #### L 500.4050, L100.0100 #### [facility] [address] [place], [address] ALK P 74 U/L Normal 45-117 [facility] Comment on above: Performed By: #### L 500.4050, L100.0100 #### [facility] [address] [place], [address] ALT [Catalytic activity/Vol] 26 U/L Normal 13-56 [facility] Comment on above: Performed By: #### L 500.4050, L100.0100 #### [facility] [address] [place], [address] AST [Catalytic activity/Vol] 22 U/L Normal 15-37 [facility] Comment on above: Performed By: #### L 500.4050, L100.0100 #### [facility] [address] [place], [address] Bilirubin [Mass/Vol] 0.50 mg/dL Normal 0.20-1.00 [facility] Comment on above: Result Comment: For patients on eltrombopag therapy, use of Dimension [place] TBIL is not recommended. Performed By: #### L 500.4050, L100.0100 #### [facility] [address] [place], [address] BUN/CRE 24.0 RATIO High 10-20 [facility] Comment on above: Performed By: #### L 500.4050, L100.0100 #### [facility] [address] [place], [address] CA,Total 8.6 mg/dL Normal 8.5-10.1 [facility] Comment on above: Performed By: #### L 500.4050, L100.0100 #### [facility] [address] [place], [address] Chloride [Moles/Vol] 106 mmol/L Normal 98-107 [facility] Comment on above: Performed By: #### L 500.4050, L100.0100 #### [facility] [facility] [address] [place], [address] CO2 [Moles/Vol] 26.0 mmol/L Normal 21.0-32.0 [facility] Comment on above: Performed By: #### L 500.4050, L100.0100 #### [facility] [address] [place], [address] Creatinine [Mass/Vol] 1.46 mg/dL High 0.55-1.02 [facility] Comment on above: Result Comment: The validity of the calculated GFR GFRAA in patients over 70 years has not been determined. Clinical correlation is essential. Performed By: #### L 500.4050, L100.0100 #### [facility] [address] [place], [address] ECRCL 37.80 ml/min Normal [facility] Comment on above: Performed By: #### L 500.4050, L100.0100 #### [facility] [address] [place], [address] EST GFR - AA 46 mL/min Low >60 [facility] Comment on above: Result Comment: Afri can [facility] GFR Calc Performed By: #### L 500.4050, L100.0100 #### [facility] [address] [place], [address] GAP 7 Normal 5-15 [facility] Comment on above: Performed By: #### L 500.4050, L100.0100 #### [facility] [address] [place], [address] GFR/1.73 sq M.predicted among non-blacks MDRD (S/P/Bld) [Vol rate/Area] 38 mL/min/{1.73_m2} Low >60 [facility] Comment on above: Result Comment: Non- GFR Calc Performed By: #### L 500.4050, L100.0100 #### [facility] [address] [place], [address] Globulin (S) [Mass/Vol] 3.6 g/dL Normal 2.2-4.2 [facility] Comment on above: Performed By: #### L 500.4050, L100.0100 #### [facility] [address] [place], [address] Glucose [Mass/Vol] 121 mg/dL High 74-106 [facility] Comment on above: Result Comment: Fast ing Glucose result from 100 to 125 mg/dL suggests IMPAIRED HOMEOSTASIS per A.D.A. criteria. Performed By: #### L 500.4050, L100.0100 #### [facility] [address] [place], [address] Potassium [Moles/Vol] 3.7 mmol/L Normal 3.5-5.1 [facility] Comment on above: Performed By: #### L 500.4050, L100.0100 #### [facility] [address] [place], [address] Sodium [Moles/Vol] 139 mmol/L Normal 136-145 [facility] Comment on above: Performed By: #### L 500.4050, L100.0100 #### [facility] [address] [place], [address] T PROT 6.3 g/dL Low 6.4-8.2 [facility] Comment on above: Performed By: #### L 500.4050, L100.0100 #### [facility] [address] [place], [address] Urea nitrogen [Mass/Vol] 35 mg/dL High 7-18 [facility] Comment on above: Performed By: #### L 500.4050, L100.0100 #### [facility] [address] [place], [address] MR/POSTOP.ANEon 03-05-2024 MR/POSTOP.[facility] Medical Records Department [address] [place] [address] Anesthesia Postop Eval I 03/05/24 1655 MR#: [id number] Acct: [id number] Name: SUDHEER ANTOINE Rep #: [id number] : 1955 68 From: Manpreet Isidro MD PCP: Dr. Rufina Bellamy, DO Status:REG [facility] Y Race: C Location: [facility] Anesthesia: Postop Eval I Current Vital Signs [...] Anesthesia document: Postop Eval 1 completed: Yes 03/05/24 165 Date Manpreet Isidro MD Cosigner Signature: Date CC: Signed Normal [facility] MR/[id number] 03-05-2024 [facility] Medical Records Department [address] [place] [address] Anesthesia Postop Eval II 03/05/24 1710 MR#: [id number] Acct: [id number] Name: SUDHEER ANTOINE Rep #: [id number] : 1955 68 From: Manpreet Isidro MD PCP: Dr. Rufina Bellamy, DO Status:REG [facility] Y Race: C Location: [facility] Anesthesia Postop Eval I Sum Postop Eval [...] Vomiting: No Complications Anesthesia Complication: No 03/05/24 171 Date Manpreet Isidro MD Cosigner Signature: Date CC: Signed Normal [facility] Operative Reporton 4 Operative Report [facility] Medical Records Department [address] [facility] [place] [address] Operative Report 03/05/24 1716 MR#: [id number] Acct: [id number] Name: SUDHEER ANTOINE Rep #: [id number] : 1955 68 From: Amy Genao MD PCP: Dr. Rufina Bellamy, Status:ADM IN Location: [address] Report of Operation Date of Procedure: 03/05/24 [...] from the left ureteral orifice. A 6 [place]ian 24 cm JJ stent was then placed over the Glidewire with good positioning in the renal pelvis as well as the urinary bladder. Purulent urine began to drain from the left kidney and a urinary culture was sent. A 16 [place]ian Barrera catheter was inserted to straight drain and 10 cc was used to fill the balloon. She was awakened and taken to the recovery room in good condition. There were no complications during the procedure. Grafts/Implants Used: 6 Montserratian x 24 cm JJ stent Complications None Admit VTE Documentation VTE Present on Admission: Yes VTE Mechan Device Prophylaxis: SCD's (Her IV is in the top of the left foot, only the right leg has an SCD in place.) VTE Pharm Prophylaxis ordered?: Yes 03/05/24 1720 Cosigner Signature (if applicable): CC: Dr. Amy Genao MD; Dr. Rufina Bellamy DO; Dr. Johnny Linares DO Signed Normal [facility] Abdomen/Pelvis without Conto n 03-04-2024 Abdomen/Pelvis without Cont [facility] Imaging Services [address] [place] [address] Abdomen/Pelvis without Cont MR#: [id number] Acct: [id number] Name: SUDHEER ANTOINE Rep #: [id number] : 1955 F 68 From: Jose Luis Manuel MD PCP: Dr. Rufina Bellamy, DO Status: REG ER Study: Abdomen/Pelvis without Cont Date of Exam: 01/20 Exam# [id number] Ordering Dr: Meet Somers MD [id number] EXAM: CT ABDOMEN AND PELVIS WITHOUT INTRAVENOUS [...] Meet Somers MD; Dr. Rufina Bellamy DO Director Of Student Life: Signed Normal [facility] Emergency Department Summary on 03-04-2024 Emergency Department Summary [facility] Medical Records Department [address] [place] [address] Emergency Department Summary 03/04/24 MR#: [id number] Acct: [id number] Name: SUDHEER ANTOINE Rep #: [id number] : 1955 68 From: Meet Somers MD PCP: Dr. Rufina eBllamy DO Status:DEP ER Location: ED HPI HPI - GI History of Present Illness Chief Complaint: Flank Pain Informant: patient and spouse/S.O. Abdominal Pain/Flank Pain Onset: Hours (3-4) Context: Sudden Onset Timing: Continuous and Waxes and wanes Quality: Burning Location: Left Flank Current Severity: Severe Maximum Severity: Severe Worsened by: Nothing Relieved by: Nothing Nausea/Vomiting/Emes is GI Symptom: Positive for Nausea and Vomiting Diarrhea/Melena/Silver tochezia GI Symptom: Negative for Diarrhea, Melena or [...] a remote laparoscopy no other abdominal surgeries. [facility] Medical History Wears glasses Cancer Arthritis Back [...] 03/04/24 Unknown Rx tablet vomiting #15 tabs oxycodone-acetaminop hen 5 mg-325 0.5 - 1 tab (0.5 [...] non-tender and (more content not included)... Normal [facility] Urinalysis, Completeon 03-04 BACTERIA 4+ /hpf Normal None Seen [facility] Comment on above: Order Comment: CLEAN CATCH Performed By: #### L 400.0001 #### [facility] [address] [place], [address] CAST,FINE GRAN 5-10 SEEN Normal 0-5 [facility] Comment on above: Order Comment: CLEAN CATCH Performed By: #### L 400.0001 #### [facility] [address] [place], [address] CAST,HYALINE 10-25 SEEN Normal 0-5 [facility] Comment on above: Order Comment: CLEAN CATCH Performed By: #### L 400.0001 #### [facility] [address] [place], [address] EPI,SQUAMOUS 5-10 SEEN Normal 5-10 [facility] Comment on above: Order Comment: CLEAN CATCH Performed By: #### L 400.0001 #### [facility] [address] [place], [address] Mucus Ql (Urine sed) RARE Normal [facility] Comment on above: Order Comment: CLEAN CATCH Performed By: #### L 400.0001 #### [facility] [address] [place], [address] RBC 5-10 SEEN Normal 0-5 [facility] Comment on above: Order Comment: CLEAN CATCH Performed By: #### L 400.0001 #### [facility] [address] [place], [address] WBC 10-25 SEEN Normal 0-5 [facility] Comment on above: Order Comment: CLEAN CATCH Performed By: #### L 400.0001 #### [facility] [address] [place], [address] CBC W/Diff, Automatedon 07- 2-2023 Absolute Lymph 1.64 X10 3/uL Normal 0.83-4.51 [facility] Comment on above: Performed By: #### L 500.4100, L500.4050, L100.0100 #### [facility] [address] [place], [address] Absolute Neut 2.5 X10 3/uL Normal 2.0-7.7 [facility] Comment on above: Performed By: #### L 500.4100, L500.4050, L100.0100 #### [facility] [address] [place], [address] Basophils/100 WBC (Bld) 0.8 % Normal 0-1 [facility] Comment on above: Performed By: #### L 500.4100, L500.4050, L100.0100 #### [facility] [address] [place], [address] Eosinophils/100 WBC (Bld) 2.5 % Normal 0-5 [facility] Comment on above: Performed By: #### L 500.4100, L500.4050, L100.0100 #### [facility] [address] [place], [address] Erythrocyte distribution width (RBC) [Ratio] 13.2 % Normal 11.6-14.6 [facility] Comment on above: Performed By: #### L 500.4100, L500.4050, L100.0100 #### [facility] [address] [place], [address] Hematocrit (Bld) [Volume fraction] 41.0 % Normal 37-47 [facility] Comment on above: Performed By: #### L 500.4100, L500.4050, L100.0100 #### [facility] [address] [place], [address] Hemoglobin (Bld) [Mass/Vol] 13.1 g/dL Normal 12.0-15.0 [facility] Comment on above: Performed By: #### L 500.4100, L500.4050, L100.0100 #### [facility] [address] [place], [address] IG% 0.400 Normal 0.0-0.9 [facility] Comment on above: Result Comment: IG% - Immature Granulocytes (promyelocytes, myelocytes and metamyelocytes) > 1% indicates that a LEFT SHIFT is Present. Performed By: #### L 500.4100, L500.4050, L100.0100 #### [facility] [address] [place], [address] Lymphocytes/100 WBC (Bld) 34.6 % Normal 19-41 [facility] Comment on above: Performed By: #### L 500.4100, L500.4050, L100.0100 #### [facility] [address] [place], [address] MCH (RBC) [Entitic mass] 30.1 pg Normal 27.0-32.0 [facility] Comment on above: Performed By: #### L 500.4100, L500.4050, L100.0100 #### [facility] [address] [place], [address] MCHC (RBC) [Mass/Vol] 32.0 g/dL Normal 32-36 [facility] Comment on above: Performed By: #### L 500.4100, L500.4050, L100.0100 #### [facility] [address] [place], [address] MCV (RBC) [Entitic vol] 94.3 fL Normal 81-99 [facility] Comment on above: Performed By: #### L 500.4100, L500.4050, L100.0100 #### [facility] [address] [place], [address] Monocytes/100 WBC (Bld) 8.6 % Normal 0-10 [facility] Comment on above: Performed By: #### L 500.4100, L500.4050, L100.0100 #### [facility] [address] [place], [address] Neutrophils/100 WBC (Bld) 53.1 % Normal 47-70 [facility] Comment on above: Performed By: #### L 500.4100, L500.4050, L100.0100 #### [facility] [address] [place], [address] Nucleated RBC (Bld) [#/Vol] 0 10*3/uL Normal 0-5 [facility] Comment on above: Performed By: #### L 500.4100, L500.4050, L100.0100 #### [facility] [address] [place], [address] Platelet mean volume (Bld) [Entitic vol] 11.1 fL Normal 6.2-12.0 [facility] Comment on above: Performed By: #### L 500.4100, L500.4050, L100.0100 #### [facility] [address] [place], [address] Platelets (Bld) [#/Vol] 244 10*3/uL Normal 150-450 [facility] Comment on above: Performed By: #### L 500.4100, L500.4050, L100.0100 #### [facility] [address] [place], [address] RBC (Bld) [#/Vol] 4.35 10*6/uL Normal 4.2-5.4 [facility] Comment on above: Performed By: #### L 500.4100, L500.4050, L100.0100 #### [facility] [address] [place], [address] RDW SD 45.2 fl High 35.1-43.9 [facility] Comment on above: Performed By: #### L 500.4100, L500.4050, L100.0100 #### [facility] [address] [place], [address] WBC (Bld) [#/Vol] 4.7 10*3/uL Normal 4.4-11.0 [facility] Comment on above: Performed By: #### L 500.4100, L500.4050, L100.0100 #### [facility] [address] [place], [address] Comprehensive Metabolic Prof ilon 02-08-2024 Albumin [Mass/Vol] 3.5 g/dL Normal 3.2-5.0 [facility] Comment on above: Performed By: #### L 500.4100, L500.4050, L100.0100 #### [facility] [address] [place], [address] Albumin/Globulin [Mass ratio] 0.9 {ratio} Normal 0.9-2.4 [facility] Comment on above: Performed By: #### L 500.4100, L500.4050, L100.0100 #### [facility] [address] [place], [address] ALK P 97 U/L Normal 45-117 [facility] Comment on above: Performed By: #### L 500.4100, L500.4050, L100.0100 #### [facility] [address] [place], [address] ALT [Catalytic activity/Vol] 24 U/L Normal 13-56 [facility] Comment on above: Performed By: #### L 500.4100, L500.4050, L100.0100 #### [facility] [address] [place], [address] AST [Catalytic activity/Vol] 18 U/L Normal 15-37 [facility] Comment on above: Performed By: #### L 500.4100, L500.4050, L100.0100 #### [facility] [address] [place], [address] Bilirubin [Mass/Vol] 0.60 mg/dL Normal 0.20-1.00 [facility] Comment on above: Result Comment: For patients on eltrombopag therapy, use of Dimension [place] TBIL is not recommended. Performed By: #### L 500.4100, L500.4050, L100.0100 #### [facility] [address] [place], [address] BUN/CRE 19.9 RATIO Normal 10-20 [facility] Comment on above: Performed By: #### L 500.4100, L500.4050, L100.0100 #### [facility] [address] [place], [address] CA,Total 9.1 mg/dL Normal 8.5-10.1 [facility] Comment on above: Performed By: #### L 500.4100, L500.4050, L100.0100 #### [facility] [address] [place], [address] Chloride [Moles/Vol] 106 mmol/L Normal 98-107 [facility] Comment on above: Performed By: #### L 500.4100, L500.4050, L100.0100 #### [facility] [address] [place], [address] CO2 [Moles/Vol] 27.0 mmol/L Normal 21.0-32.0 [facility] Comment on above: Performed By: #### L 500.4100, L500.4050, L100.0100 #### [facility] [address] [place], [address] Creatinine [Mass/Vol] 0.85 mg/dL Normal 0.55-1.02 [facility] Comment on above: Result Comment: The validity of the calculated GFR GFRAA in patients over 70 years has not been determined. Clinical correlation is essential. Performed By: #### L 500.4100, L500.4050, L100.0100 #### [facility] [address] [place], [address] EST GFR - AA 85 mL/min Normal >60 [facility] Comment on above: Result Comment: Afri can [facility] GFR Calc Performed By: #### L 500.4100, L500.4050, L100.0100 #### [facility] [address] [place], [address] GAP 5 Normal 5-15 [facility] Comment on above: Performed By: #### L 500.4100, L500.4050, L100.0100 #### [facility] [address] [place], [address] GFR/1.73 sq M.predicted among non-blacks MDRD (S/P/Bld) [Vol rate/Area] 70 mL/min/{1.73_m2} Normal >60 [facility] Comment on above: Result Comment: Non- GFR Calc Performed By: #### L 500.4100, L500.4050, L100.0100 #### [facility] [address] [place], [address] Globulin (S) [Mass/Vol] 3.7 g/dL Normal 2.2-4.2 [facility] Comment on above: Performed By: #### L 500.4100, L500.4050, L100.0100 #### [facility] [address] [place], [address] Glucose [Mass/Vol] 93 mg/dL Normal 74-106 [facility] Comment on above: Performed By: #### L 500.4100, L500.4050, L100.0100 #### [facility] [address] [place], [address] Potassium [Moles/Vol] 4.7 mmol/L Normal 3.5-5.1 [facility] Comment on above: Performed By: #### L 500.4100, L500.4050, L100.0100 #### [facility] [address] [place], [address] Sodium [Moles/Vol] 138 mmol/L Normal 136-145 [facility] Comment on above: Performed By: #### L 500.4100, L500.4050, L100.0100 #### [facility] [address] [place], [address] T PROT 7.2 g/dL Normal 6.4-8.2 [facility] Comment on above: Performed By: #### L 500.4100, L500.4050, L100.0100 #### [facility] [address] [place], [address] Urea nitrogen [Mass/Vol] 17 mg/dL Normal 7-18 [facility] Comment on above: Performed By: #### L 500.4100, L500.4050, L100.0100 #### [facility] [address] [place], [address] Lipid Profileon 02-08-2024 Cholesterol [Mass/Vol] 320 mg/dL High 200 [facility] Comment on above: Result Comment: <200 mg/dL Desirable 200-240 mg/dL Borderline >240 mg/dL High Risk Performed By: #### L 500.4100, L500.4050, L100.0100 #### [facility] [address] [place], [address] Cholesterol in HDL [Mass/Vol] 67 mg/dL Normal [facility] Comment on above: Result Comment: The drugs N-Acetylcysteine and Metamizole may falsely depress this assay. Reference Range HDL <40 mg/dL Low HDL Cholesterol HDL >or= 60 mg/dL High HDL Cholesterol Performed By: #### L 500.4100, L500.4050, L100.0100 #### [facility] [address] [place], [address] Cholesterol in LDL [Mass/Vol] 228 mg/dL High 0-130 [facility] Comment on above: Performed By: #### L 500.4100, L500.4050, L100.0100 #### [facility] [address] [place], [address] Cholesterol in VLDL [Mass/Vol] 25 mg/dL Normal 5-40 [facility] Comment on above: Performed By: #### L 500.4100, L500.4050, L100.0100 #### [facility] [address] [place], [address] Triglyceride [Mass/Vol] 123 mg/dL Normal [facility] Comment on above: Result Comment: The drugs N-Acetylcysteine and Metamizole may falsely depress this assay. Serum Triglycerides Reference Interval Normal <150 mg/dL Borderline high 150 - 199 mg/dL High 200 - 499 mg/dL Very High > or = 500 mg/dL Performed By: #### L 500.4100, L500.4050, L100.0100 #### [facility] [address] [place], [address] Basophil percentageOrdered B y: Rufina Bellamy on 01-28-2023 Bilirubin [Mass/Vol] 0.50 mg/dL 0.20-1.00 [facility] Comment on above: For patients on eltr ombopag therapy, use of Dimension [place] TBIL is not recommended. Chloride [Moles/Vol] 108 mmol/L 98-107 [facility] Cholesterol [Mass/Vol] 304 mg/dL <200 [facility] Comment on above: <200 mg/dL Desirable 200-240 mg/dL Borderline >240 mg/dL High Risk Glucose [Mass/Vol] 101 mg/dL 74-106 [facility] Comment on above: Fasting Glucose resu lt from 100 to 125 mg/dL suggests IMPAIRED HOMEOSTASIS per A.D.A. criteria. Potassium [Moles/Vol] 4.4 mmol/L 3.5-5.1 [facility] Protein [Mass/Vol] 7.1 g/dL 6.4-8.2 [facility] Sodium [Moles/Vol] 138 mmol/L 136-145 [facility] Triglyceride [Mass/Vol] 135 mg/dL <199 [facility] Comment on above: The drugs N-Acetylcy steine and Metamizole may falsely depress this assay.Serum Triglycerides Reference Interval Normal <150 mg/dL Borderline high 150 - 199 mg/dL High 200 - 499 mg/dL Very High > or = 500 mg/dL Laboratory - Chemistry and C hemistry - challengeOrdered By: Rufina Bellamy on 01-28-2023 ALP [Catalytic activity/Vol] 93 U/L 45-117 [facility] ALT [Catalytic activity/Vol] 23 U/L 13-56 [facility] CO2 [Moles/Vol] 26.0 mmol/L 21.0-32.0 [facility] Globulin (S) [Mass/Vol] 3.7 g/dL 2.2-4.2 [facility] Urea nitrogen/Creatinine [Mass ratio] 17.8 mg/mg 10-20 [facility] No Panel InformationOrdered By: Rufina Bellamy on 01-28-2023 Estimated GFR (MDRD) Amer 94 mL/min >60 [facility] Comment on above: GFR Calc Estimated GFR (MDRD) Non-Af Amer 77 mL/min >60 [facility] Comment on above: Non- GFR Calc Serum or plasma albumin benito urement (mass/volume)Ordered By: Rufina Bellamy on 01-28-2023 Albumin [Mass/Vol] 3.4 g/dL 3.2-5.0 [facility] Serum or plasma albumin/glob ulin mass ratioOrdered By: Rufina Bellamy on 01-28-2023 Albumin/Globulin [Mass ratio] 0.9 {ratio} 0.9-2.4 [facility] Serum or plasma calcium benito urement (mass/volume)Ordered By: Rufina Bellamy on 01-28-2023 Calcium [Mass/Vol] 9.1 mg/dL 8.5-10.1 [facility] Serum or plasma cholesterol in HDL measurement (mass/volume)Ordered By: Rufina Bellamy on 01-28-2023 Cholesterol in HDL [Mass/Vol] 66 mg/dL >40 [facility] Comment on above: The drugs N-Acetylcy steine and Metamizole may falsely depress this assay. Reference Range HDL <40 mg/dL Low HDL Cholesterol HDL >or= 60 mg/dL High HDL Cholesterol Serum or plasma cholesterol in VLDL measurement (mass/volume)Ordered By: Rufina Bellamy on 01-28-2023 Cholesterol in VLDL [Mass/Vol] 27 mg/dL 5-40 [facility] Serum or plasma creatinine m easurement (mass/volume)Ordered By: Rufina Bellamy on 01-28-2023 Creatinine [Mass/Vol] 0.79 mg/dL 0.55-1.02 [facility] Comment on above: The validity of the calculated GFR & GFRAA in patients over 70 years has not been determined. Clinical correlation is essential. Serum or plasma low density lipoprotein (LDL) cholesterol measurement (mass/volume)Ordered By: Rufina Bellamy on 01-28-2023 Cholesterol in LDL [Mass/Vol] 211 mg/dL 0-130 [facility] Serum or plasma urea nitroge n measurement (mass/volume)Ordered By: Rufina Bellamy on 01-28-2023 Urea nitrogen [Mass/Vol] 14 mg/dL 7-18 [facility] Thin prep Papanicolaou smear with manual screeningOrdered By: Rufina Bellamy on 01-28-2023 Thin prep Papanicolaou smear with manual screening 17 U/L 15-37 [facility] Thin prep Papanicolaou smear with manual screening 4 5-15 [facility] Absolute lymphocyte countOrd ered By: Rufina Bellamy on 01-27-2023 Lymphocytes Auto (Unsp spec) [#/Vol] 1.56 10*3/uL 0.83-4.51 [facility] Basophil percentageOrdered B y: Rufina Bellamy on 01-27-2023 Basophils/100 WBC (Bld) 0.4 % 0-1 [facility] Eosinophils/100 WBC (Bld) 2.5 % 0-5 [facility] Neutrophils (Bld) [#/Vol] 2.7 10*3/uL 2.0-7.7 [facility] Neutrophils/100 WBC (Bld) 56.4 % 47-70 [facility] WBC (Bld) [#/Vol] 4.7 10*3/uL 4.4-11.0 [facility] Blood erythrocytes count (nu mber/volume)Ordered By: Rufina Bellamy on 01-27-2023 RBC (Bld) [#/Vol] 4.32 10*6/uL 4.2-5.4 [facility] Blood hemoglobin measurement (mass/volume)Ordered By: Rufina Bellamy on 01-27-2023 Hemoglobin (Bld) [Mass/Vol] 13.2 g/dL 12.0-15.0 [facility] Blood lymphocytes/100 leukoc ytesOrdered By: Rufina Bellamy on 01-27-2023 Lymphocytes/100 WBC (Bld) 32.9 % 19-41 [facility] Blood monocytes/100 leukocyt esOrdered By: Rufina Bellamy on 01-27-2023 Monocytes/100 WBC (Bld) 7.4 % 0-10 [facility] Blood platelet mean volumeOr dered By: Rufina Bellamy on 01-27-2023 Platelet mean volume (Bld) [Entitic vol] 11.1 fL 6.2-12.0 [facility] Determination of erythrocyte mean corpuscular volume (MCV)Ordered By: Rufina Bellamy on 01-27-2023 MCV (RBC) [Entitic vol] 95.1 fL 81-99 [facility] Hematocrit Auto (Bld) [Volum e fraction]Ordered By: Rufina Bellamy on 01-27-2023 Hematocrit (Bld) [Volume fraction] 41.1 % 37-47 [facility] - Hematology and Cell countsOrdered By: Rufina Bellamy on 01-27-2023 Erythrocyte distribution width (RBC) [Entitic vol] 44.7 fL 35.1-43.9 [facility] Erythrocyte distribution width (RBC) [Ratio] 12.8 % 11.6-14.6 [facility] Immature granulocytes/100 WBC (Bld) 0.400 % 0.0-0.9 [facility] Comment on above: IG% - Immature Granu locytes (promyelocytes, myelocytes and metamyelocytes) > 1% indicates that a LEFT SHIFT is Present. MCH (RBC) [Entitic mass] 30.6 pg 27.0-32.0 [facility] Nucleated RBC/100 WBC (Bld) [Ratio] 0 % 0-5 [facility] MCHC Auto (RBC) [Mass/Vol]Or dered By: Rufina Bellamy on 01-27-2023 MCHC (RBC) [Mass/Vol] 32.1 g/dL 32-36 [facility] Platelets bldOrdered By: Nichole Bellamy on 01-27-2023 Platelets (Bld) [#/Vol] 248 10*3/uL 150-450 [facility] Absolute lymphocyte counton 01-21-2022 Lymphocytes Auto (Unsp spec) [#/Vol] 1.45 10*3/uL 0.83-4.51 [facility] Work Phone: Basophil percentageon 2021 Basophils/100 WBC (Bld) 0.5 % 0-1 [facility] Work Phone: [phone] Bilirubin [Mass/Vol] 0.40 mg/dL 0.20-1.00 [facility] Work Phone: Comment on above: For patients on eltr ombopag therapy, use of Dimension [place] TBIL is not recommended. Chloride [Moles/Vol] 108 mmol/L 98-107 [facility] Work Phone: [phone] Cholesterol [Mass/Vol] 285 mg/dL <200 [facility] Work Phone: [phone] Comment on above: <200 mg/dL Desirable 200-240 mg/dL Borderline >240 mg/dL High Risk Eosinophils/100 WBC (Bld) 2.9 % 0-5 [facility] Work Phone: [phone] Glucose [Mass/Vol] 99 mg/dL 74-106 [facility] Work Phone: Neutrophils (Bld) [#/Vol] 2.2 10*3/uL 2.0-7.7 [facility] Work Phone: [phone] Neutrophils/100 WBC (Bld) 53.1 % 47-70 [facility] Work Phone: [phone] Potassium [Moles/Vol] 4.8 mmol/L 3.5-5.1 [facility] Work Phone: [phone] Protein [Mass/Vol] 7.2 g/dL 6.4-8.2 [facility] Work Phone: [phone] Sodium [Moles/Vol] 139 mmol/L 136-145 [facility] Work Phone: Triglyceride [Mass/Vol] 127 mg/dL <199 [facility] Work Phone: [phone] Comment on above: The drugs N-Acetylcy steine and Metamizole may falsely depress this assay.Serum Triglycerides Reference Interval Normal <150 mg/dL Borderline high 150 - 199 mg/dL High 200 - 499 mg/dL Very High > or = 500 mg/dL WBC (Bld) [#/Vol] 4.2 10*3/uL 4.4-11.0 [facility]: Blood erythrocytes count (nu mber/volume)on 01-21-2022 RBC (Bld) [#/Vol] 4.47 10*6/uL 4.2-5.4 [facility] Blood hemoglobin measurement (mass/volume)on 01-21-2022 Hemoglobin (Bld) [Mass/Vol] 13.7 g/dL 12.0-15.0 [facility] Work Phone: Blood lymphocytes/100 leukoc yteson 01-21-2022 Lymphocytes/100 WBC (Bld) 34.5 % 19-41 [facility] Work Phone: Blood monocytes/100 leukocyt eson 01-21-2022 Monocytes/100 WBC (Bld) 8.8 % 0-10 [facility] Work Phone: Blood platelet mean volumeon 01-21-2022 Platelet mean volume (Bld) [Entitic vol] 11.1 fL 6.2-12.0 [facility] Work Phone: Determination of erythrocyte mean corpuscular volume (MCV)on 01-21-2022 MCV (RBC) [Entitic vol] 95.7 fL 81-99 [facility] Work Phone: Hematocrit Auto (Bld) [Volum e fraction]on 01-21-2022 Hematocrit (Bld) [Volume fraction] 42.8 % 37-47 [facility] Work Phone: Laboratory - Chemistry and C hemistry - challengeon 01-21-2022 ALP [Catalytic activity/Vol] 91 U/L 45-117 [facility] Work Phone: ALT [Catalytic activity/Vol] 29 U/L 13-56 [facility] Work Phone: CO2 [Moles/Vol] 27.0 mmol/L 21.0-32.0 [facility] Work Phone: Globulin (S) [Mass/Vol] 3.8 g/dL 2.2-4.2 [facility] Work Phone: Urea nitrogen/Creatinine [Mass ratio] 17.9 mg/mg 10-20 [facility] Work Phone: Laboratory - Hematology and Cell countson 01-21-2022 Erythrocyte distribution width (RBC) [Entitic vol] 45.1 fL 35.1-43.9 [facility] Work Phone: Erythrocyte distribution width (RBC) [Ratio] 12.8 % 11.6-14.6 [facility] Work Phone: Immature granulocytes/100 WBC (Bld) 0.200 % 0.0-0.9 [facility] Work Phone: Comment on above: IG% - Immature Granu locytes (promyelocytes, myelocytes and metamyelocytes) > 1% indicates that a LEFT SHIFT is Present. MCH (RBC) [Entitic mass] 30.6 pg 27.0-32.0 [facility] Work Phone: Nucleated RBC/100 WBC (Bld) [Ratio] 0 % 0-5 [facility] Work Phone: MCHC Auto (RBC) [Mass/Vol]on 01-21-2022 MCHC (RBC) [Mass/Vol] 32.0 g/dL 32-36 [facility] Work Phone: No Panel Informationon 01-21 Estimated GFR (MDRD) Amer 87 mL/min >60 [facility] Work Phone: Comment on above: GFR Calc Estimated GFR (MDRD) Non-Af Amer 72 mL/min >60 [facility] Work Phone: Comment on above: Non- GFR Calc Platelets bldon 01-21-2022 Platelets (Bld) [#/Vol] 248 10*3/uL 150-450 [facility] Work Phone: Serum or plasma albumin benito urement (mass/volume)on 01-21-2022 Albumin [Mass/Vol] 3.4 g/dL 3.2-5.0 [facility] Work Phone: Serum or plasma albumin/glob ulin mass ratioon 01-21-2022 Albumin/Globulin [Mass ratio] 0.9 {ratio} 0.9-2.4 [facility] Work Phone: Serum or plasma calcium benito urement (mass/volume)on 01-21-2022 Calcium [Mass/Vol] 9.0 mg/dL 8.5-10.1 [facility] Work Phone: Serum or plasma cholesterol in HDL measurement (mass/volume)on 01-21-2022 Cholesterol in HDL [Mass/Vol] 72 mg/dL >40 [facility] Work Phone: Comment on above: The drugs N-Acetylcy steine and Metamizole may falsely depress this assay. Reference Range HDL <40 mg/dL Low HDL Cholesterol HDL >or= 60 mg/dL High HDL Cholesterol Serum or plasma cholesterol in VLDL measurement (mass/volume)on 01-21-2022 Cholesterol in VLDL [Mass/Vol] 25 mg/dL 5-40 [facility] Work Phone: Serum or plasma creatinine m easurement (mass/volume)on 01-21-2022 Creatinine [Mass/Vol] 0.84 mg/dL 0.55-1.02 [facility] Work Phone: Comment on above: The validity of the calculated GFR & GFRAA in patients over 70 years has not been determined. Clinical correlation is essential. Serum or plasma low density lipoprotein (LDL) cholesterol measurement (mass/volume)on 01-21-2022 Cholesterol in LDL [Mass/Vol] 188 mg/dL 0-130 [facility] Work Phone: Serum or plasma urea nitroge n measurement (mass/volume)on 01-21-2022 Urea nitrogen [Mass/Vol] 15 mg/dL 7-18 [facility] Work Phone: Thin prep Papanicolaou smear with manual screeningon 01-21-2022 Thin prep Papanicolaou smear with manual screening 22 U/L 15-37 [facility] Work Phone: Thin prep Papanicolaou smear with manual screening 4 5-15 [facility] Work Phone: DIGITAL MAMMO SCREENINGon DIGITAL MAMMO SCREENING BILATERAL DIGITA L SCREENING MAMMOGRAM WITH CAD: 12/09/2020 Ordering Physician: Bipin Carrizales M.D. CLINICAL: Routine screening. Comparison is made to exams dated: 06/17/2019 mammogram and 06/13/2018 mammogram - [facility]. The tissue of both breasts is heterogeneously [...] clinical grounds. Nnamdi Goode M.D. tlv,am/:12/09/2020 08:36:57 Booking Supervisor: Isabella Hein RT ( R) ( M), [facility] letter sent: Mammography Normal BI-RADS: 2 Benign Reported By: NNAMDI KEMP M.D. Signed By: NNAMDI KEMP M.D. [facility] Vital Signs Date Time Vital Sign Value Performing Clinician Faci ifrahy 01-18-2022 07:43-0400 Body mass index (BMI) [Ratio] 30.1 kg/m2 Dr. Sukumar Green Work Phone: [facility] Work Phone: Encounters Encounter Date Encounter Type Care Provider Facility Start: 02-05-2025 ambulatory Rufina [facility] Facility:[facility] Start: 10-09-2024 ambulatory Rufina Malny Facility:[facility] Start: 05-23-2024 End: 05-23-2024 ambulatory [facility] Facility:[facility] Start: 04-04-2024 End: 04-04-2024 ambulatory [facility] Facility:[facility] Start: 03-20-2024 End: 03-20-2024 ambulatory [facility] Facility:[facility] Start: 03-05-2024 ambulatory Rufina Bellamy Facility:[facility] Start: 03-05-2024 End: 03-06-2024 Evaluation and management of inpatient Rufina Mia Facility:[facility] Start: 03-04-2024 End: 03-04-2024 Emergency department patient visit [facility] Facility:[facility] Start: 02-08-2024 End: 02-08-2024 [facility] Start: 05-21-2023 End: 05-21-2023 ambulatory [facility] Work Phone: Start: 05-21-2023 End: 05-21-2023 Patient encounter procedure [facility] Work Phone: Start: 01-31-2023 End: 01-31-2023 ambulatory [facility] Work Phone: Start: 01-31-2023 End: 01-31-2023 Patient encounter procedure [facility] Work Phone: Start: 01-28-2023 End: 01-28-2023 ambulatory [facility] Work Phone: Start: 01-28-2023 End: 01-28-2023 Patient encounter procedure [facility] Work Phone: Start: 01-27-2023 End: 01-27-2023 ambulatory [facility] Work Phone: Start: 01-27-2023 End: 01-27-2023 Patient encounter procedure [facility] Work Phone: Start: 01-21-2022 End: 01-21-[address] Sukumar Green Work Phone: [facility] Start: 01-18-2022 End: 01-18-[address] Sukumar Green Work Phone: [facility] Start: 12-30-2021 End: 12-30-2021 Patient encounter procedure [facility] Start: 12-28-2021 End: 12-28-2021 Patient encounter procedure [facility],Fut ure Procedures Date Procedure Procedure Detail Performing [...] Screening mammography SCRN KWABENA M (CAD)W/ROMULO BILAT [facility] Work Phone: Payers Date Payer Category Payer Medicare [id number] 2023 Self-pay [id number] 2023 Unknown [id number] Unknown [id number] Unknown [id number] Unknown [id number] Unknown [id number] 2.16.8 [id number] Unknown [id number] 2.16.8 [id number] Unknown [id number] 2.16.8 [id number] Unknown [id number] 2.16.8 [id number] Unknown [id number] 2.16.8 [id number] Unknown [id number] 2.16.8 [id number] Unknown [id number] 2.16.8 [id number] Unknown [id number] 2.16.8 [id number] Unknown [id number] 2.16.8 [id number] Unknown [id number] 2.16.8 [id number] Social History Date Type Detail Facility Start: 03-02-2021 End: 01-18-2022 Tobacco smoking status NHIS Unknown if ever smoked [facility] Start: 1955 Sex Assigned At Female [facility] Medical Equipment Procedure Code Equipment Code Equipment [...] Facility Evaluation note No assessment information availa [facility] Work Phone: Evaluation note Note Date & Type Note Facility Evaluation note Diagnosis Onset Date History of total right hip arthroplasty acute [facility] Work Phone: Summary Purpose Family History No Family History Records FoundNo Family History Records Found Advance Directives No Advanced Directives Records Found Advance Directive Response Recorded Date/ Time Living Will Yes January 18, 2021 4:30pm Power of Compensation Supervisor Yes January 18 4:30pm Chief Complaint and Reason for Visit Chief Complaint SCREENING Chief Complaint SCREENING RIGHT HIP xray Reason for Visit History of total rig ht hip arthroplasty Chief Complaint REDRAW CMP & LIPID SCREENING Additional Source Comments INFORMATION SOURCE (unrecogn ized section and content) DATE CREATED AUTHOR 12/21/2020 [facility] xiomara Ward DATE CREATED AUTHOR AUTHOR'S ORGANIZ ATION 02/05/2025 [facility] Goals (unrecognized section and content) Goals may [...] Family Provider Active Dr. Rufina Bellamy , DO Primary Care Provider Active Team Status: Active [...] BE BASED ON THE PRIMARY CLINICAL RECORDS. [facility]. provides no warranty or guarantee of the accuracy or completeness of information in this document.
[2025-02-07 07:57] LABS: Hematocrit 41.6 % (37-47); Hemoglobin 13.6 g/dL (12.0-15.0); Immature Granulocytes Count 0.020 X10^3/uL (0.0-0.0); Mean Corp Hgb Conc 32.7 g/dL (32-36); Mean Corpuscular Volume 93.5 fL (81-99); Mean Platelet Vol. 11.8 fl (6.2-12.0); NRBC Flagged by Analyzer 0 % (0-5); Platelet Count 237 K/mm3 (150-450); RBC Distribution Width CV 13.2 % (11.6-14.6); RBC Distribution Width SD 45.0 fl (35.1-43.9); Red Blood Count 4.45 M/mm3 (4.2-5.4); White Blood Count 4.5 K/mm3 (4.4-11.0)
[2025-02-07 08:27] LABS: AST(SGOT) 32 U/L (<=31); Alanine Aminotransfer ALT/SGPT 22 U/L (<=34); Albumin, Serum 4.2 g/dL (3.4-4.8); Alkaline Phosphatase 75 U/L (35-104); Anion Gap 11 (5-15); BUN 24 mg/dL (4-19); BUN/Creat Ratio 29.5 RATIO (10-20); Calcium,Total 9.7 mg/dL (7.6-11.0); Carbon Dioxide 23.0 mmol/L (21.0-32.0); Chloride 104 mmol/L (98-108); Cholesterol 281 mg/dL (<=200); Globulin 2.9 g/dL (2.2-4.2); Glucose 93 mg/dL (70-99); Low Density Lipoprotein Calc. 192 mg/dL; Potassium 5.2 mmol/L (3.3-5.1); Triglycerides 96 mg/dL; Very Low Density Lipoprotein 19 mg/dL (5-40); cholesterol:hdl ratio screen 4.03
== END | disposition home or self-care (01) ==
LOC: LAB 07:00
PROVIDERS: PCP Family Medicine; Referring Provider Family Medicine; Visit Provider Family Medicine
DX: E78.5 Hyperlipidemia, unspecified (principal); Z51.81 Encounter for therapeutic drug level monitoring
CPT/HCPCS: 36415; 80053; 80061; 85025